=== PATIENT | female | born 1955 | race Caucasian/White ===

== ENCOUNTER 2022-09-11 11:11 | Inpatient (IN) | payer OTHER, SELFPAY ==
--- NOTE | ~2022-09-11 | CT_ITS ---
EXAMINATION: CT HEAD WITHOUT CONTRAST CLINICAL INFORMATION: Suspected fall, trauma. No loss of consciousness. COMPARISON: None TECHNIQUE: Contiguous axial imaging was performed from the skull base to vertex without intravenous administration of contrast. This CT examination was performed using dose optimization techniques as appropriate, variously including the following: *Automated exposure control *Adjustment of mA and/or kV according to patient size (this includes techniques or standardized protocols for targeted exams where dose is matched to indication/reason for exam; i.e. extremities or head) *Use of iterative reconstruction technique DLP: 597 mGy-cm FINDINGS: No evidence of intracranial hemorrhage, extra-axial fluid collection, focal mass effect or midline shift. Patchy hypoattenuation within supratentorial white matter is nonspecific but likely sequela of chronic moderate microangiopathy. The garcia-white matter differentiation is maintained. No evidence of an acute major vascular territory infarction. [id number] parenchymal volume loss with commensurate prominence of ventricles and sulci; no hydrocephalus. No acute findings within the posterior fossa. The cerebellar tonsils are in normal position. No calvarial fracture. The visualized paranasal sinuses and mastoid air cells are well aerated. The orbits, globes and temporomandibular joints are unremarkable. CT/CT head/brain wo IV con IMPRESSION: * No intracranial hemorrhage or other acute intracranial pathology. 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
--- NOTE | ~2022-09-11 | XR_ITS ---
EXAMINATION: XR CHEST CLINICAL INFORMATION: Shortness of breath COMPARISON: None TECHNIQUE: AP portable view of the chest was obtained. FINDINGS: There is mild interstitial prominence seen bilaterally within the lower lobes. No confluent airspace disease is appreciated. Heart normal size. No definite evidence to suggest pulmonary edema. No pneumothorax or pleural effusion. Old healed left clavicle fracture. Calcific tendinitis of the left shoulder. XR/XR chest 1V IMPRESSION: Mild interstitial disease within the lower lobes which may be infectious or reactive airways disease.
[2022-09-11 11:17] VITALS: BP 168/72; PULSE 98; O2SAT 99
--- NOTE | 2022-09-11 11:30 | ECG_ITS ---
Test Reason : MED CLEARANCE Blood Pressure : / mmHG Vent. Rate : 053 BPM Atrial Rate : 053 BPM P-R Int : 150 ms QRS Dur : 082 ms QT Int : 420 ms P-R-T Axes : 049 077 070 degrees QTc Int : 394 ms Sinus bradycardia Otherwise normal ECG No previous ECGs available Referred By: Generic ED Physician Electronically Signed By:Myke Queen
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
[2022-09-11 12:04] LABS: COVID-19 Test Negative (Negative); IDNOW Serial# BCCEAD1C
[2022-09-11 12:10] VITALS: BP 154/70; PULSE 66; RESP 16; TEMP 36.7; O2SAT 92; BMI 23.0
[2022-09-11 12:10] LABS: Basophils Absolute Auto 0.1 X10*3/uL (0.0-0.2); Basophils Percent Auto 0.6 % (0-2); Eosinophils Absolute Auto 0.1 X10*3/uL (0.0-0.4); Eosinophils Percent Auto 1.1 % (0-4); Hematocrit 44.7 % (37.0-47.0); Hemoglobin 14.5 g/dl (12.0-16.0); Imm Gran Abs Auto 0.03 X10*3/uL (0.00-0.03); Imm Gran Pct Auto 0.3 % (0.0-0.4); Lymphocytes Percent Auto 10.1 % (20-40); MANUAL DIFF FLAG SCAN; Mean Corpuscular HGB Conc 32.4 g/dl (31.0-35.0); Mean Corpuscular Hemoglobin 28.3 pg (27.0-33.0); Mean Corpuscular Volume 87.3 fL (80.0-98.0); Monocytes Absolute Auto 0.9 X10*3/uL (0.1-1.2); Monocytes Percent Auto 8.9 % (2-11); Neutrophils Absolute Auto 7.8 x10*3/uL (2.0-8.3); PLT CLUMP 1; Red Blood Count 5.12 X10*6/uL (4.20-5.50); Red Cell Distribution Width 13.9 % (11.0-16.0); SCAN SMEAR FLAG 1
[2022-09-11 12:24] LABS: Anion Gap 15 (12-20); Blood Urea Nitrogen 9 mg/dL (9-16); Carbon Dioxide 26 mmol/L (22-29); Chloride 103 mmol/L (96-108); Creatinine Clr Calc Pharmacy 60.1; Estimated Glomerular Filt Rate > 60; Glucose Random 99 mg/dL (60-115); Potassium 4.3 mmol/L (3.3-5.1); Sodium 140 mmol/L (135-145)
[2022-09-11 12:28] LABS: White Blood Count 9.8 X10*3/uL (4.8-10.8)
[2022-09-11 12:29] LABS: SLIDE REVIEW VERIFIED
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
[2022-09-11 13:36] LABS: Appearance Urine Clear; Color Urine Yellow; Glucose Urine UA Negative (Negative); Leukocyte Esterase Urine Negative (Negative); Nitrite Urine Negative (Negative); PH 6.5 (5.0-9.0); Urine Blood Negative (Negative); Urine Ketones Negative (Negative); Urine Protein Negative (Neg-Trace)
[2022-09-11 13:45] LABS: Amphetamine Screen Urine Not Detected (Not Detect); Barbiturates, Urine Not Detected (Not Detect); Benzodiazepines Screen Urine Not Detected (Not Detect); Cannabinoid Screen Urine Not Detected (Not Detect); Cocaine Screen Urine Not Detected (Not Detect); Fentanyl, urine Not Detected (Not Detect); Opiate Screen Urine Not Detected (Not Detect); Phencyclidine Screen Urine Not Detected (Not Detect)
[2022-09-11 20:51] VITALS: BP 139/62; PULSE 53; RESP 16; TEMP 36.8; O2SAT 93
[2022-09-11] MEDS: busPIRone HCl 10 MG TABLET PO (22:55)
[2022-09-11] MEDS: Gabapentin 100 MG CAPSULE PO (22:55)
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
[2022-09-12 10:00] VITALS: BP 125/82; PULSE 105; RESP 16; TEMP 37.2; O2SAT 93
[2022-09-12] MEDS: Gabapentin 100 MG CAPSULE PO ×3 (10:04→21:24)
[2022-09-12] MEDS: Escitalopram Oxalate 10 MG TABLET PO (10:04)
[2022-09-12] MEDS: Omeprazole 20 MG CAPSULE.DR PO (10:04)
[2022-09-12] MEDS: busPIRone HCl 10 MG TABLET PO ×2 (10:04→21:24)
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
[2022-09-12 18:00] VITALS: BP 122/57; PULSE 69; RESP 18; TEMP 36.6; O2SAT 97
[2022-09-12] MEDS: traZODone HCL 100 MG TABLET PO (21:24)
[2022-09-12] MEDS: Atorvastatin Calcium 10 MG TABLET PO (21:24)
[2022-09-13 09:20] VITALS: BP 136/64; PULSE 72; RESP 16; TEMP 36.7; O2SAT 93
[2022-09-13] MEDS: busPIRone HCl 10 MG TABLET PO (09:26)
[2022-09-13] MEDS: Escitalopram Oxalate 10 MG TABLET PO (09:26)
[2022-09-13] MEDS: Gabapentin 100 MG CAPSULE PO ×2 (09:26→15:41)
[2022-09-13] MEDS: Omeprazole 20 MG CAPSULE.DR PO (09:28)
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
[2022-09-13 18:26] VITALS: BP 124/60; PULSE 82; RESP 16; TEMP 36.4; O2SAT 91
[2022-09-14 08:45] VITALS: BP 144/65; PULSE 83; RESP 18; TEMP 36.4; O2SAT 91
[2022-09-14] MEDS: busPIRone HCl 10 MG TABLET PO ×2 (09:57→20:59)
[2022-09-14] MEDS: Omeprazole 20 MG CAPSULE.DR PO (09:57)
[2022-09-14] MEDS: Gabapentin 100 MG CAPSULE PO ×3 (09:58→20:58)
[2022-09-14] MEDS: Escitalopram Oxalate 10 MG TABLET PO (09:58)
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
[2022-09-14] MEDS: Divalproex Sodium 250 MG TABLET.DR 125 MG PO ×2 (17:31→21:00)
[2022-09-14 18:00] VITALS: BP 131/69; PULSE 64; RESP 16; TEMP 36.1; O2SAT 90
[2022-09-14] MEDS: traZODone HCL 100 MG TABLET PO (20:58)
[2022-09-14] MEDS: Atorvastatin Calcium 10 MG TABLET PO (20:59)
[2022-09-15 08:30] VITALS: BP 132/88; PULSE 100; RESP 16; TEMP 36.7; O2SAT 93
[2022-09-15] MEDS: Omeprazole 20 MG CAPSULE.DR PO (08:34)
[2022-09-15] MEDS: busPIRone HCl 10 MG TABLET PO ×2 (08:34→20:45)
[2022-09-15] MEDS: Gabapentin 100 MG CAPSULE PO ×2 (08:35→16:30)
[2022-09-15] MEDS: Escitalopram Oxalate 10 MG TABLET PO (08:35)
[2022-09-15] MEDS: Divalproex Sodium Sprinkles 125 MG CAP.DR.SPR PO ×2 (09:22→16:30)
[2022-09-15 14:29] LABS: COVID-19 Test Negative (Negative); IDNOW Serial# 16C4AD1C
--- NOTE | 2022-09-15 16:29 | P.PNPSI_ITS ---
Subjective Subjective Date of Service: 09/15/22 Reason For Visit: Behavioral disturbance Subjective Notes: Conditional Voluntary Interim History: The nursing staff reported the patient had been compliant with medications but he has very ports attention span and she was disoriented and confused. On interview the patient cannot remember how come she in the here and why she is here. I explained about her diagnosis and she was redirected in the treatment goals. But she has poor insight into her condition Mental Status Exam Mental Status Exam Patient Appearance: Well Grooomed Patient Orientation: Person and Situation Level of Consciousness: Awake and Appropriate Patient Behavior: Guarded, Passive and Timid Mood Description: Withdrawn Affect Description: Calm Patient Cognition Impaired: Yes Ability to Follow Directions: Good Speech Pattern: Clear Hallucinations: None Delusions: Not Present Thought Process: Distracted and Slowed Thinking Thought Content: positive for [place] and positive for Loose Associations Judgement: Fair Diagnostics Vital Signs (24Hr): Vital Signs - 24 hr 09/14/22 18:00 09/15/22 08:30 Temperature 97 F 98.0 F Pulse Rate 64 100 Respiratory Rate 16 16 Blood Pressure 131/69 132/88 Pulse Oximetry 90 L 93 Oxygen Delivery Method Room Air Room Air BMI result Body Mass Index 23.0 Labs 09/11/22 12:01 09/11/22 12:01 Labs: Laboratory Results - last 48 hr 09/15/22 14:07 COVID-19 ([facility]) Negative COVID-19 Clin Com See Note Medications Medications Current Medications Acetaminophen (Acetaminophen 325 Mg Tablet) 650 mg PO Q6H PRN PRN Reason: Headache/Pain Mild Scale (1-3) Al Hydroxide/Mg Hydroxide (Magnesium Hydrox/Alum Hydrox 30 Ml Oral.Susp) 30 ml PO Q6H PRN PRN Reason: Heartburn/Nausea Albuterol Sulfate (Albuterol Sulfate 90 Mcg 8 Gm Inhaler) 1 puff INHALE Q4H PRN PRN Reason: Dyspnea Atorvastatin Calcium (Atorvastatin Calcium 10 Mg Tablet) 10 mg PO BEDTIME [facility] Last Admin: 09/14/22 20:59 Dose: 10 mg Buspirone HCl (Buspirone Hcl 10 Mg Tablet) 10 mg PO BID [facility] Last Admin: 09/15/22 08:34 Dose: 10 mg Divalproex Sodium (Divalproex Sodium Sprinkles 125 Mg ) 125 mg PO TID [facility] Last Admin: 09/15/22 09:22 Dose: 125 mg Escitalopram Oxalate (Escitalopram Oxalate 10 Mg Tablet) 10 mg PO DAILY [facility] Last Admin: 09/15/22 08:35 Dose: 10 mg Gabapentin (Gabapentin 100 Mg Capsule) 100 mg PO TID [facility] Last Admin: 09/15/22 08:35 Dose: 100 mg Magnesium Hydroxide (Milk Of Magnesia 30 Ml Oral.Susp) 30 ml PO DAILY PRN PRN Reason: Constipation Non-Formulary Medication (Trelegy Ellipta) 100 mcg INHALE DAILY [facility] Omeprazole (Omeprazole 20 Mg Capsule.Dr) 20 mg PO DAILY [facility] Last Admin: 09/15/22 08:34 Dose: 20 mg Trazodone HCl (Trazodone Hcl 100 Mg Tablet) 100 mg PO BEDTIME [facility] Last Admin: 09/14/22 20:58 Dose: 100 mg Trazodone HCl (Trazodone Hcl 50 Mg Tablet) 50 mg PO BEDTIME MRX1 PRN PRN Reason: Insomnia Allergies Allergies Allergy/AdvReac Type Severity Reaction Status Date / Time No Known Allergies Allergy Verified 09/11/22 11:21 Assessment & Plan Assessment & Plan (1) Dementia: Status: Acute Code(s): F03.90 - Unspecified dementia, unspecified severity, without behavioral disturbance, psychotic disturbance, mood disturbance, and anxiety Plan Maintain current medications as has been off those for a number of months i.e. Lipitor 10 mg, Lexapro 10 mg, trazodone 100 mg, buspirone 10 mg twice daily, gabapentin 100 mg twice daily, omeprazole 20 mg and albuterol. can continue to review this while in the hospital plus or minus consider an antipsychotic if there is paranoia or agitation. Completed Section 12 as patient clearly did not have an understanding around conditions for voluntary admission. Plan: 1. Assessment by OT, SW. 2. Gather collateral information. 3. Start Depakote 125 mg po tid to target mood lability. 4. Invoke HCP. Reason for contiued inpatient stay Substantial Risk for: inability to function, rapid decompensation and med/psych decompensation Time Spent With Patient Time: Total time managing care of this patient today __20__ minutes.
[2022-09-15] MEDS: Atorvastatin Calcium 10 MG TABLET PO (20:45)
[2022-09-15] MEDS: traZODone HCL 100 MG TABLET PO (20:45)
[2022-09-16 08:00] VITALS: BP 132/65; PULSE 88; RESP 16; TEMP 36.4; O2SAT 92
[2022-09-16] MEDS: Omeprazole 20 MG CAPSULE.DR PO (08:07)
[2022-09-16] MEDS: Gabapentin 100 MG CAPSULE PO ×3 (08:08→20:43)
[2022-09-16] MEDS: Escitalopram Oxalate 10 MG TABLET PO (08:08)
[2022-09-16] MEDS: Divalproex Sodium Sprinkles 125 MG CAP.DR.SPR PO ×3 (08:08→20:42)
[2022-09-16] MEDS: busPIRone HCl 10 MG TABLET PO ×2 (08:08→20:42)
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
[2022-09-16 18:00] VITALS: BP 93/50; PULSE 60; RESP 16; TEMP 36.3; O2SAT 93
[2022-09-16] MEDS: Atorvastatin Calcium 10 MG TABLET PO (20:42)
[2022-09-16] MEDS: risperiDONE 0.5 MG TABLET PO (20:43)
[2022-09-16] MEDS: traZODone HCL 100 MG TABLET PO (20:43)
[2022-09-17 06:00] VITALS: BP 120/78; PULSE 66; RESP 16; TEMP 36.7; O2SAT 93
[2022-09-17 07:00] VITALS: BMI 21.7
[2022-09-17] MEDS: risperiDONE 0.5 MG TABLET PO ×2 (09:42→19:51)
[2022-09-17] MEDS: Divalproex Sodium Sprinkles 125 MG CAP.DR.SPR 250 MG PO ×3 (09:42→19:50)
[2022-09-17] MEDS: Omeprazole 20 MG CAPSULE.DR PO (09:42)
[2022-09-17] MEDS: Gabapentin 100 MG CAPSULE PO ×3 (09:43→19:51)
[2022-09-17] MEDS: Escitalopram Oxalate 10 MG TABLET PO (09:43)
[2022-09-17] MEDS: busPIRone HCl 10 MG TABLET PO ×2 (09:43→19:50)
--- NOTE | 2022-09-17 11:40 | P.PNPSI_ITS ---
Subjective Subjective Date of Service: 09/17/22 Reason For Visit: Behavioral disturbance Subjective Notes: Section 7, Section 8 and Section 12B Interim History: The nursing staff reported the patient slept well last night, she has being wandering around very confused. She had taking her medications last night. On interview the patient is confused but redirectable Mental Status Exam Mental Status Exam Patient Appearance: Well Grooomed Patient Orientation: Person and Situation Level of Consciousness: Awake and Appropriate Patient Behavior: Guarded and Passive Mood Description: Suspicious, Labile and Nervous Affect Description: Labile Patient Cognition Impaired: Yes Ability to Follow Directions: Good Speech Pattern: Clear Hallucinations: None Delusions: Not Present Thought Process: Illogical and Distracted Thought Content: positive for Disoriented and positive for [place] Judgement: Poor Diagnostics Vital Signs (24Hr): Vital Signs - 24 hr 09/16/22 18:00 09/17/22 06:00 Temperature 97.3 F 98.0 F Pulse Rate 60 66 Respiratory Rate 16 16 Blood Pressure 93/50 L 120/78 Pulse Oximetry 93 93 Oxygen Delivery Method Room Air Room Air BMI result Body Mass Index 21.7 Labs 09/11/22 12:01 09/11/22 12:01 Labs: Laboratory Results - last 48 hr 09/15/22 14:07 COVID-19 ([facility]) Negative COVID-19 Clin Com See Note Medications Medications Current Medications Acetaminophen (Acetaminophen 325 Mg Tablet) 650 mg PO Q6H PRN PRN Reason: Headache/Pain Mild Scale (1-3) Al Hydroxide/Mg Hydroxide (Magnesium Hydrox/Alum Hydrox 30 Ml Oral.Susp) 30 ml PO Q6H PRN PRN Reason: Heartburn/Nausea Albuterol Sulfate (Albuterol Sulfate 90 Mcg 8 Gm Inhaler) 1 puff INHALE Q4H PRN PRN Reason: Dyspnea Atorvastatin Calcium (Atorvastatin Calcium 10 Mg Tablet) 10 mg PO BEDTIME [facility] Last Admin: 09/16/22 20:42 Dose: 10 mg Buspirone HCl (Buspirone Hcl 10 Mg Tablet) 10 mg PO BID [facility] Last Admin: 09/17/22 09:43 Dose: 10 mg Divalproex Sodium (Divalproex Sodium Sprinkles 125 Mg ) 250 mg PO TID [facility] Last Admin: 09/17/22 09:42 Dose: 250 mg Escitalopram Oxalate (Escitalopram Oxalate 10 Mg Tablet) 10 mg PO DAILY [facility] Last Admin: 09/17/22 09:43 Dose: 10 mg Gabapentin (Gabapentin 100 Mg Capsule) 100 mg PO TID [facility] Last Admin: 09/17/22 09:43 Dose: 100 mg Magnesium Hydroxide (Milk Of Magnesia 30 Ml Oral.Susp) 30 ml PO DAILY PRN PRN Reason: Constipation Non-Formulary Medication (Trelegy Ellipta) 100 mcg INHALE DAILY [facility] Omeprazole (Omeprazole 20 Mg Capsule.Dr) 20 mg PO DAILY [facility] Last Admin: 09/17/22 09:42 Dose: 20 mg Risperidone (Risperidone 0.5 Mg Tablet) 0.5 mg PO BID [facility] Last Admin: 09/17/22 09:42 Dose: 0.5 mg Trazodone HCl (Trazodone Hcl 100 Mg Tablet) 100 mg PO BEDTIME [facility] Last Admin: 09/16/22 20:43 Dose: 100 mg Trazodone HCl (Trazodone Hcl 50 Mg Tablet) 50 mg PO BEDTIME MRX1 PRN PRN Reason: Insomnia Allergies Allergies Allergy/AdvReac Type Severity Reaction Status Date / Time No Known Allergies Allergy Verified 09/11/22 11:21 Assessment & Plan Assessment & Plan (1) Dementia: Status: Acute Code(s): F03.90 - Unspecified dementia, unspecified severity, without behavioral disturbance, psychotic disturbance, mood disturbance, and anxiety Plan Maintain current medications as has been off those for a number of months i.e. Lipitor 10 mg, Lexapro 10 mg, trazodone 100 mg, buspirone 10 mg twice daily, gabapentin 100 mg twice daily, omeprazole 20 mg and albuterol. can continue to review this while in the hospital plus or minus consider an antipsychotic if there is paranoia or agitation. Completed Section 12 as patient clearly did not have an understanding around conditions for voluntary admission. Plan: 1. Assessment by OT, SW. 2. Gather collateral information. 3. Start Depakote 125 mg po tid to target mood lability. On admission. 4. Invoke HCP. 5. Start Risperdal 0.5 p.o. b.i.d. to target psychosis. 6. COVID-19 testing today Reason for contiued inpatient stay Substantial Risk for: inability to function, rapid decompensation and med/psych decompensation Time Spent With Patient Time: Total time managing care of this patient today _20___ minutes.
[2022-09-17 12:04] LABS: COVID-19 Test Negative (Negative); IDNOW Serial# 16C4AD1C
[2022-09-17 19:40] VITALS: BP 146/72; PULSE 88; RESP 16; TEMP 36.9; O2SAT 92
[2022-09-17] MEDS: traZODone HCL 100 MG TABLET PO (19:51)
[2022-09-17] MEDS: Atorvastatin Calcium 10 MG TABLET PO (19:51)
[2022-09-18 06:00] VITALS: RESP 15
[2022-09-18] MEDS: Escitalopram Oxalate 10 MG TABLET PO (09:46)
[2022-09-18] MEDS: Gabapentin 100 MG CAPSULE PO ×3 (09:47→20:04)
[2022-09-18] MEDS: busPIRone HCl 10 MG TABLET PO ×2 (09:47→20:03)
[2022-09-18] MEDS: Omeprazole 20 MG CAPSULE.DR PO (09:47)
--- NOTE | 2022-09-18 09:53 | PC.NURSE ---
Pt refusing depakote, risperidone and memantine. Becoming irritable with this nurse at this time. Meds returned to [facility].
--- NOTE | 2022-09-18 13:13 | P.PNPSI_ITS ---
Subjective Subjective Date of Service: 09/18/22 Reason For Visit: Behavioral disturbance Subjective Notes: Conditional Voluntary Interim History: The nursing staff reported the patient has been intrusive tearful at times, she verbalized that she is scared to get COVID 19. She has been medication compliant. Yesterday we increased her Risperdal up to 1 mg p.o. b.i.d. to target psychosis. On interview the patient looks confused, unable to provide a clear explanation how come she in the here. Mental Status Exam Mental Status Exam Patient Appearance: Well Grooomed Patient Orientation: Person and Situation Level of Consciousness: Awake and Appropriate Patient Behavior: Guarded and Passive Mood Description: Withdrawn Affect Description: Constricted Patient Cognition Impaired: Yes Ability to Follow Directions: Good Speech Pattern: Clear Hallucinations: None Delusions: Paranoid Ideation Thought Process: Illogical and Distracted Thought Content: positive for [place] Judgement: Poor Diagnostics Vital Signs (24Hr): Vital Signs - 24 hr 09/17/22 19:40 09/18/22 06:00 Temperature 98.4 F Pulse Rate 88 Respiratory Rate 16 15 Blood Pressure 146/72 H Pulse Oximetry 92 Oxygen Delivery Method Room Air BMI result Body Mass Index 21.7 Labs 09/11/22 12:01 09/11/22 12:01 Labs: Laboratory Results - last 48 hr 09/17/22 11:05 COVID-19 ([facility]) Negative COVID-19 Clin Com See Note Medications Medications Current Medications Acetaminophen (Acetaminophen 325 Mg Tablet) 650 mg PO Q6H PRN PRN Reason: Headache/Pain Mild Scale (1-3) Al Hydroxide/Mg Hydroxide (Magnesium Hydrox/Alum Hydrox 30 Ml Oral.Susp) 30 ml PO Q6H PRN PRN Reason: Heartburn/Nausea Albuterol Sulfate (Albuterol Sulfate 90 Mcg 8 Gm Inhaler) 1 puff INHALE Q4H PRN PRN Reason: Dyspnea Atorvastatin Calcium (Atorvastatin Calcium 10 Mg Tablet) 10 mg PO BEDTIME [facility] Last Admin: 09/17/22 19:51 Dose: 10 mg Buspirone HCl (Buspirone Hcl 10 Mg Tablet) 10 mg PO BID [facility] Last Admin: 09/18/22 09:47 Dose: 10 mg Divalproex Sodium (Divalproex Sodium Sprinkles 125 Mg ) 250 mg PO TID [facility] Last Admin: 09/18/22 09:52 Dose: Not Given Escitalopram Oxalate (Escitalopram Oxalate 10 Mg Tablet) 10 mg PO DAILY [facility] Last Admin: 09/18/22 09:46 Dose: 10 mg Gabapentin (Gabapentin 100 Mg Capsule) 100 mg PO TID [facility] Last Admin: 09/18/22 09:47 Dose: 100 mg Magnesium Hydroxide (Milk Of Magnesia 30 Ml Oral.Susp) 30 ml PO DAILY PRN PRN Reason: Constipation Memantine (Memantine Hcl 5 Mg Tablet) 5 mg PO DAILY [facility] Last Admin: 09/18/22 09:52 Dose: Not Given Non-Formulary Medication (Trelegy Ellipta) 100 mcg INHALE DAILY [facility] Omeprazole (Omeprazole 20 Mg Capsule.Dr) 20 mg PO DAILY [facility] Last Admin: 09/18/22 09:47 Dose: 20 mg Risperidone (Risperidone 1 Mg Tablet) 1 mg PO BID [facility] Last Admin: 09/18/22 09:52 Dose: Not Given Trazodone HCl (Trazodone Hcl 100 Mg Tablet) 100 mg PO BEDTIME [facility] Last Admin: 09/17/22 19:51 Dose: 100 mg Trazodone HCl (Trazodone Hcl 50 Mg Tablet) 50 mg PO BEDTIME MRX1 PRN PRN Reason: Insomnia Allergies Allergies Allergy/AdvReac Type Severity Reaction Status Date / Time No Known Allergies Allergy Verified 09/11/22 11:21 Assessment & Plan Assessment & Plan (1) Dementia: Status: Acute Code(s): F03.90 - Unspecified dementia, unspecified severity, without behavioral disturbance, psychotic disturbance, mood disturbance, and anxiety Plan Maintain current medications as has been off those for a number of months i.e. Lipitor 10 mg, Lexapro 10 mg, trazodone 100 mg, buspirone 10 mg twice daily, gabapentin 100 mg twice daily, omeprazole 20 mg and albuterol. can continue to review this while in the hospital plus or minus consider an antipsychotic if there is paranoia or agitation. Completed Section 12 as patient clearly did not have an understanding around conditions for voluntary admission. Plan: 1. Assessment by OT, SW. 2. Gather collateral information. 3. Start Depakote 125 mg po tid to target mood lability. On admission. 4. Invoke HCP. 5. Start Risperdal 0.5 p.o. b.i.d. to target psychosis. 6. COVID-19 testing today Reason for contiued inpatient stay Substantial Risk for: inability to function, rapid decompensation and med/psych decompensation Time Spent With Patient Time: Total time managing care of this patient today __20__ minutes.
[2022-09-18] MEDS: Divalproex Sodium Sprinkles 125 MG CAP.DR.SPR 250 MG PO ×2 (15:15→20:04)
[2022-09-18 19:20] VITALS: BP 144/68; PULSE 92; RESP 18; TEMP 36.8; O2SAT 98
[2022-09-18] MEDS: risperiDONE 1 MG TABLET PO (20:03)
[2022-09-18] MEDS: Atorvastatin Calcium 10 MG TABLET PO (20:03)
[2022-09-18] MEDS: traZODone HCL 100 MG TABLET PO (20:03)
[2022-09-19 06:00] VITALS: BP 107/63; PULSE 101; RESP 16; TEMP 37.2
[2022-09-19] MEDS: busPIRone HCl 10 MG TABLET PO ×2 (08:43→20:19)
[2022-09-19] MEDS: Escitalopram Oxalate 10 MG TABLET PO (08:43)
[2022-09-19] MEDS: Omeprazole 20 MG CAPSULE.DR PO (08:43)
[2022-09-19] MEDS: risperiDONE 1 MG TABLET PO ×2 (08:43→20:18)
[2022-09-19] MEDS: Memantine HCl 5 MG TABLET PO (08:43)
[2022-09-19] MEDS: Divalproex Sodium Sprinkles 125 MG CAP.DR.SPR 250 MG PO ×2 (08:43→20:18)
[2022-09-19] MEDS: Gabapentin 100 MG CAPSULE PO ×2 (08:43→20:19)
--- NOTE | 2022-09-19 10:33 | P.PNPSI_ITS ---
Subjective Subjective Date of Service: 09/19/22 Reason For Visit: Behavioral disturbance Subjective Notes: Section 12B Interim History: The nursing staff report that patient found sitting ont he floor this am; shei s repeatedly attempting to ambulate and is falling forward and repaetedly at risk for falling; pt placed on 1:1 while awake.; she has been intrusive tearful at times; she is covid positive; She has been medication compliant. Yesterday we increased her Risperdal up to 1 mg p.o. b.i.d. to target psychosis. On interview the patient looks confused, unable to provide a clear explanation how come she in the here. Medication Compliance: Yes Side effects from medications: No Attending Groups: No Review of Systems covid positive Review of Systems: covid positive Review of Systems Review of Systems Yes all other systems are reviewed and are negative and Unobtainable due to mental status Constitutional: Reports no additional constitutional complaints, Denies chills, Denies fever(s) and Denies night sweats Eyes: Reports no additional eye complaints, Denies blurry vision, Denies change in vision, Denies diplopia, Denies eye discharge, Denies loss of vision and Denies eye pain Denies dizziness Cardiovascular: Reports no additional cardiovascular complaints, Denies chest pain, Denies lightheadedness, Denies Loss of Consciousness and Denies dyspnea Respiratory: Reports no additional respiratory complaints and Denies dyspnea Gastrointestinal: Reports no additional gastrointestinal complaints, Denies abdominal pain, Denies melena, Denies hematochezia, Denies change in bowel habits and Denies change in stool character Musculoskeletal: Reports no additional musculoskeletal complaints, Denies numbness and Denies tingling Reports confusion (per her baseline), Denies dizziness, Denies loss of vision, Denies numbness and Denies tingling Psychiatric: Reports no additional psychiatric complaints and Reports confusion (per her baseline) Endocrine: Reports no additional endocrine complaints Hematologic/Lymphatic: Reports no additional hematologic/lymphatic complaints Allergic/Immunologic: Reports no additional allergic/immunologic complaints Mental Status Exam Mental Status Exam Narrative: confuse; anxious; unsteady gait; unable to feed self; needing 2 assist; found on floor between bed and bathroom last night; Appropriately dressed with fair self-care. anxious, irritable and eager for discharge. clear cognitive impairment consistent with already established dementia. Denied depression SI or HI. No overt psychosis currently. Insight and judgment poor Patient Appearance: Well Grooomed Patient Orientation: Person and Situation Level of Consciousness: Awake and Appropriate Patient Behavior: Guarded and Passive Mood Description: Withdrawn Affect Description: Constricted Patient Cognition Impaired: Yes Ability to Follow Directions: Good Speech Pattern: Clear Diagnostics Vital Signs (24Hr): Vital Signs - 24 hr 09/18/22 19:20 09/19/22 06:00 Temperature 98.2 F 99.0 F Pulse Rate 92 101 H Respiratory Rate 18 16 Blood Pressure 144/68 H 107/63 Pulse Oximetry 98 BMI result Body Mass Index 21.7 Labs 09/11/22 12:01 09/11/22 12:01 Labs: Laboratory Results - last 48 hr 09/17/22 11:05 COVID-19 ([facility]) Negative COVID-19 Clin Com See Note Medications Medications Current Medications Acetaminophen (Acetaminophen 325 Mg Tablet) 650 mg PO Q6H PRN PRN Reason: Headache/Pain Mild Scale (1-3) Al Hydroxide/Mg Hydroxide (Magnesium Hydrox/Alum Hydrox 30 Ml Oral.Susp) 30 ml PO Q6H PRN PRN Reason: Heartburn/Nausea Albuterol Sulfate (Albuterol Sulfate 90 Mcg 8 Gm Inhaler) 1 puff INHALE Q4H PRN PRN Reason: Dyspnea Atorvastatin Calcium (Atorvastatin Calcium 10 Mg Tablet) 10 mg PO BEDTIME [facility] Last Admin: 09/18/22 20:03 Dose: 10 mg Buspirone HCl (Buspirone Hcl 10 Mg Tablet) 10 mg PO BID [facility] Last Admin: 09/19/22 08:43 Dose: 10 mg Divalproex Sodium (Divalproex Sodium Sprinkboy 125 Mg ) 250 mg PO TID [facility] Last Admin: 09/19/22 08:43 Dose: 250 mg Escitalopram Oxalate (Escitalopram Oxalate 10 Mg Tablet) 10 mg PO DAILY [facility] Last Admin: 09/19/22 08:43 Dose: 10 mg Gabapentin (Gabapentin 100 Mg Capsule) 100 mg PO TID [facility] Last Admin: 09/19/22 08:43 Dose: 100 mg Magnesium Hydroxide (Milk Of Magnesia 30 Ml Oral.Susp) 30 ml PO DAILY PRN PRN Reason: Constipation Memantine (Memantine Hcl 5 Mg Tablet) 5 mg PO DAILY [facility] Last Admin: 09/19/22 08:43 Dose: 5 mg Non-Formulary Medication (Trelegy Ellipta) 100 mcg INHALE DAILY [facility] Omeprazole (Omeprazole 20 Mg Capsule.Dr) 20 mg PO DAILY [facility] Last Admin: 09/19/22 08:43 Dose: 20 mg Risperidone (Risperidone 1 Mg Tablet) 1 mg PO BID [facility] Last Admin: 09/19/22 08:43 Dose: 1 mg Trazodone HCl (Trazodone Hcl 100 Mg Tablet) 100 mg PO BEDTIME [facility] Last Admin: 09/18/22 20:03 Dose: 100 mg Trazodone HCl (Trazodone Hcl 50 Mg Tablet) 50 mg PO BEDTIME MRX1 PRN PRN Reason: Insomnia Allergies Allergies Allergy/AdvReac Type Severity Reaction Status Date / Time No Known Allergies Allergy Verified 09/11/22 11:21 Assessment & Plan Assessment & Plan (1) Dementia: Status: Acute Code(s): F03.90 - Unspecified dementia, unspecified severity, without behavioral disturbance, psychotic disturbance, mood disturbance, and anxiety Plan Maintain current medications as has been off those for a number of months i.e. Lipitor 10 mg, Lexapro 10 mg, trazodone 100 mg, buspirone 10 mg twice daily, gabapentin 100 mg twice daily, omeprazole 20 mg and albuterol. can continue to review this while in the hospital plus or minus consider an antipsychotic if there is paranoia or agitation. Completed Section 12 as patient clearly did not have an understanding around conditions for voluntary admission. Plan: COVID TEST TODAY 1:[address] SCAN OF HEAD continue treatment plan Reason for contiued inpatient stay Substantial Risk for: harm to self, inability to function, rapid decompensation and med/psych decompensation Time Spent With Patient Time: Total time managing care of this patient today ____ minutes.
[2022-09-19 11:09] LABS: COVID-19 Test Positive (Negative); IDNOW Serial# BCCEAD1C
--- NOTE | 2022-09-19 13:28 | PC.NURSE ---
Patient found on floor next to bed this morning. Event was unwitnessed. Patient unable to provide information re:fall. MD notified. Patient ordered to have CT which was done. Patient observed sleeping. Patient tested positive for covid this morning.
--- NOTE | 2022-09-19 14:51 | PC.NURSE ---
Patient found on floor in sitting position next to bed at 1445. Patient is 1:1 for safety while awake. Patient unable to verbalize cirucumstances d/t mental status. Patient is profoundly confused. Patient was helped up to standing position and offered toileting which was declined. Patient to bed and is observed to be sleeping soundly at this time. Patient was also found on floor at approximately 0800 this morning. Patient was unable to provide account of incident. Provider aware. CT scan ordered. Results pending.
[2022-09-19 20:15] VITALS: BP 116/68; PULSE 88; RESP 18; TEMP 36.7; O2SAT 96
[2022-09-19] MEDS: traZODone HCL 100 MG TABLET PO (20:18)
[2022-09-19] MEDS: Atorvastatin Calcium 10 MG TABLET PO (20:19)
[2022-09-20 06:00] VITALS: BP 136/72; PULSE 87; RESP 18; TEMP 36.9; O2SAT 95
[2022-09-20] MEDS: Divalproex Sodium Sprinkles 125 MG CAP.DR.SPR 250 MG PO ×3 (08:17→21:11)
[2022-09-20] MEDS: risperiDONE 1 MG TABLET PO ×2 (08:17→21:12)
[2022-09-20] MEDS: Omeprazole 20 MG CAPSULE.DR PO (08:17)
[2022-09-20] MEDS: busPIRone HCl 10 MG TABLET PO ×2 (08:17→21:11)
[2022-09-20] MEDS: Escitalopram Oxalate 10 MG TABLET PO (08:17)
[2022-09-20] MEDS: Memantine HCl 5 MG TABLET PO (08:17)
[2022-09-20] MEDS: Gabapentin 100 MG CAPSULE PO ×3 (08:22→21:11)
--- NOTE | 2022-09-20 12:26 | HO.PSYCHPN ---
Subjective Subjective Date of Service: 09/20/22 Reason For Visit: Behavioral disturbance Interim History: seen in bed today; slept well last night per staff; she is covid positive; She has been medication compliant. Medication Compliance: Yes Side effects from medications: No Attending Groups: No Review of Systems Acute medical concerns: No Medical Review of Systems: unchanged Review of Systems Review of Systems Yes all other systems are reviewed and are negative and Unobtainable due to mental status Constitutional: Reports no additional constitutional complaints, Denies chills, Denies fever(s) and Denies night sweats Eyes: Reports no additional eye complaints, Denies blurry vision, Denies change in vision, Denies diplopia, Denies eye discharge, Denies loss of vision and Denies eye pain Denies dizziness Cardiovascular: Reports no additional cardiovascular complaints, Denies chest pain, Denies lightheadedness, Denies Loss of Consciousness and Denies dyspnea Respiratory: Reports no additional respiratory complaints and Denies dyspnea Gastrointestinal: Reports no additional gastrointestinal complaints, Denies abdominal pain, Denies melena, Denies hematochezia, Denies change in bowel habits and Denies change in stool character Musculoskeletal: Reports no additional musculoskeletal complaints, Denies numbness and Denies tingling Reports confusion (per her baseline), Denies dizziness, Denies loss of vision, Denies numbness and Denies tingling Psychiatric: Reports no additional psychiatric complaints and Reports confusion (per her baseline) Endocrine: Reports no additional endocrine complaints Hematologic/Lymphatic: Reports no additional hematologic/lymphatic complaints Allergic/Immunologic: Reports no additional allergic/immunologic complaints Mental Status Exam Mental Status Exam Narrative: confuse; anxious; unsteady gait; unable to feed self; needing 2 assist;low energy today; clear cognitive impairment consistent with already established dementia. Denied depression SI or HI. No overt psychosis currently. Insight and judgment poor Patient Appearance: Well Grooomed Patient Orientation: Person and Situation Level of Consciousness: Awake and Appropriate Patient Behavior: Guarded and Passive Mood Description: Withdrawn Affect Description: Constricted Patient Cognition Impaired: Yes Ability to Follow Directions: Good Speech Pattern: Clear Diagnostics Vital Signs (24Hr): Vital Signs - 24 hr 09/19/22 20:15 09/20/22 06:00 Temperature 98.0 F 98.4 F Pulse Rate 88 87 Respiratory Rate 18 18 Blood Pressure 116/68 136/72 Pulse Oximetry 96 95 BMI result Body Mass Index 21.7 Labs 09/11/22 12:01 09/11/22 12:01 Labs: Laboratory Results - last 48 hr 09/19/22 10:45 COVID-19 ([facility]) Positive A COVID-19 Clin Com See Note Imaging Radiology Impressions: ITS Impressions Head CT 09/19/22 13:14 IMPRESSION: * No intracranial hemorrhage or other acute intracranial pathology. 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 Medications Medications Current Medications Acetaminophen (Acetaminophen 325 Mg Tablet) 650 mg PO Q6H PRN PRN Reason: Headache/Pain Mild Scale (1-3) Al Hydroxide/Mg Hydroxide (Magnesium Hydrox/Alum Hydrox 30 Ml Oral.Susp) 30 ml PO Q6H PRN PRN Reason: Heartburn/Nausea Albuterol Sulfate (Albuterol Sulfate 90 Mcg 8 Gm Inhaler) 1 puff INHALE Q4H PRN PRN Reason: Dyspnea Atorvastatin Calcium (Atorvastatin Calcium 10 Mg Tablet) 10 mg PO BEDTIME [facility] Last Admin: 09/19/22 20:19 Dose: 10 mg Buspirone HCl (Buspirone Hcl 10 Mg Tablet) 10 mg PO BID [facility] Last Admin: 09/20/22 08:17 Dose: 10 mg Divalproex Sodium (Divalproex Sodium Sprinkles 125 Mg Cap.) 250 mg PO TID [facility] Last Admin: 09/20/22 08:17 Dose: 250 mg Escitalopram Oxalate (Escitalopram Oxalate 10 Mg Tablet) 10 mg PO DAILY [facility] Last Admin: 09/20/22 08:17 Dose: 10 mg Gabapentin (Gabapentin 100 Mg Capsule) 100 mg PO TID [facility] Last Admin: 09/20/22 08:22 Dose: 100 mg Magnesium Hydroxide (Milk Of Magnesia 30 Ml Oral.Susp) 30 ml PO DAILY PRN PRN Reason: Constipation Memantine (Memantine Hcl 5 Mg Tablet) 5 mg PO DAILY [facility] Last Admin: 09/20/22 08:17 Dose: 5 mg Non-Formulary Medication (Trelegy Ellipta) 100 mcg INHALE DAILY [facility] Omeprazole (Omeprazole 20 Mg Capsule.) 20 mg PO DAILY [facility] Last Admin: 09/20/22 08:17 Dose: 20 mg Risperidone (Risperidone 1 Mg Tablet) 1 mg PO BID [facility] Last Admin: 09/20/22 08:17 Dose: 1 mg Trazodone HCl (Trazodone Hcl 100 Mg Tablet) 100 mg PO BEDTIME [facility] Last Admin: 09/19/22 20:18 Dose: 100 mg Trazodone HCl (Trazodone Hcl 50 Mg Tablet) 50 mg PO BEDTIME MRX1 PRN PRN Reason: Insomnia Allergies Allergies Allergy/AdvReac Type Severity Reaction Status Date / Time No Known Allergies Allergy Verified 09/11/22 11:21 Assessment & Plan Assessment & Plan (1) Dementia: Status: Acute Code(s): F03.90 - Unspecified dementia, unspecified severity, without behavioral disturbance, psychotic disturbance, mood disturbance, and anxiety Plan Maintain current medications as has been off those for a number of months i.e. Lipitor 10 mg, Lexapro 10 mg, trazodone 100 mg, buspirone 10 mg twice daily, gabapentin 100 mg twice daily, omeprazole 20 mg and albuterol. can continue to review this while in the hospital plus or minus consider an antipsychotic if there is paranoia or agitation. Completed Section 12 as patient clearly did not have an understanding around conditions for voluntary admission. Plan: covid positive-monitor for progressing symptoms encourage food intake and fluids Patient educated on: therapeutic strategies Informed Consent: does not understand Reason for contiued inpatient stay Substantial Risk for: inability to function, rapid decompensation and med/psych decompensation Time Spent With Patient Time: Total time managing care of this patient today ____ minutes.
[2022-09-20 18:00] VITALS: BP 149/70; PULSE 82; RESP 18; TEMP 36.6; O2SAT 93
[2022-09-20] MEDS: Atorvastatin Calcium 10 MG TABLET PO (21:11)
[2022-09-20] MEDS: traZODone HCL 100 MG TABLET PO (21:12)
[2022-09-21 06:00] VITALS: BP 128/68; PULSE 98; RESP 16; TEMP 36.7; O2SAT 95
[2022-09-21] MEDS: Memantine HCl 5 MG TABLET PO (09:20)
[2022-09-21] MEDS: busPIRone HCl 10 MG TABLET PO ×2 (09:21→21:31)
[2022-09-21] MEDS: risperiDONE 1 MG TABLET PO ×2 (09:21→21:31)
[2022-09-21] MEDS: Escitalopram Oxalate 10 MG TABLET PO (09:21)
[2022-09-21] MEDS: Omeprazole 20 MG CAPSULE.DR PO (09:21)
[2022-09-21] MEDS: Gabapentin 100 MG CAPSULE PO ×2 (09:21→21:31)
[2022-09-21] MEDS: Divalproex Sodium Sprinkles 125 MG CAP.DR.SPR 250 MG PO ×2 (09:21→21:31)
--- NOTE | 2022-09-21 14:04 | HO.PSYCHPN ---
Subjective Subjective Date of Service: 09/21/22 Reason For Visit: Behavioral disturbance Subjective Notes: Conditional Voluntary Interim History: The nursing staff reported the patient felt yesterday, she had a CT scan that she was seen by Medicine. So far she has been med compliant but she had been angry on the one-to-one confused and disoriented. The staff has reported that she has being resistant with care, she is not aware that she has COVID-19 and she cannot fulfill the requirements of the COVID 19 protocol. The occupational therapist reported that she scored 3.4 on her Leon test. On interview the patient was confused unable to follow the interview. Mental Status Exam Mental Status Exam Patient Appearance: Well Grooomed and Appropriate Patient Orientation: Person and Situation Level of Consciousness: Awake and Appropriate Patient Behavior: Guarded and Passive Mood Description: Suspicious and Withdrawn Affect Description: Withdrawn and Hostile Patient Cognition Impaired: Yes Ability to Follow Directions: Fair Speech Pattern: Clear Hallucinations: None Delusions: Paranoid Ideation and Ideas of Reference Thought Content: positive for [place] Judgement: Poor Diagnostics Vital Signs (24Hr): Vital Signs - 24 hr 09/20/22 18:00 09/21/22 06:00 Temperature 98 F 98.0 F Pulse Rate 82 98 Respiratory Rate 18 16 Blood Pressure 149/70 H 128/68 Pulse Oximetry 93 95 Oxygen Delivery Method Room Air BMI result Body Mass Index 21.7 Labs 09/11/22 12:01 09/11/22 12:01 Imaging Radiology Impressions: ITS Impressions Head CT 09/19/22 13:14 IMPRESSION: * No intracranial hemorrhage or other acute intracranial pathology. 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 Medications Medications Current Medications Acetaminophen (Acetaminophen 325 Mg Tablet) 650 mg PO Q6H PRN PRN Reason: Headache/Pain Mild Scale (1-3) Al Hydroxide/Mg Hydroxide (Magnesium Hydrox/Alum Hydrox 30 Ml Oral.Susp) 30 ml PO Q6H PRN PRN Reason: Heartburn/Nausea Albuterol Sulfate (Albuterol Sulfate 90 Mcg 8 Gm Inhaler) 1 puff INHALE Q4H PRN PRN Reason: Dyspnea Atorvastatin Calcium (Atorvastatin Calcium 10 Mg Tablet) 10 mg PO BEDTIME [facility] Last Admin: 09/20/22 21:11 Dose: 10 mg Buspirone HCl (Buspirone Hcl 10 Mg Tablet) 10 mg PO BID [facility] Last Admin: 09/21/22 09:21 Dose: 10 mg Divalproex Sodium (Divalproex Sodium Sprinkles 125 Mg Cap) 250 mg PO TID [facility] Last Admin: 09/21/22 09:21 Dose: 250 mg Escitalopram Oxalate (Escitalopram Oxalate 10 Mg Tablet) 10 mg PO DAILY [facility] Last Admin: 09/21/22 09:21 Dose: 10 mg Gabapentin (Gabapentin 100 Mg Capsule) 100 mg PO TID [facility] Last Admin: 09/21/22 09:21 Dose: 100 mg Magnesium Hydroxide (Milk Of Magnesia 30 Ml Oral.Susp) 30 ml PO DAILY PRN PRN Reason: Constipation Memantine (Memantine Hcl 5 Mg Tablet) 5 mg PO DAILY [facility] Last Admin: 09/21/22 09:20 Dose: 5 mg Non-Formulary Medication (Trelegy Ellipta) 100 mcg INHALE DAILY [facility] Omeprazole (Omeprazole 20 Mg Capsule.) 20 mg PO DAILY [facility] Last Admin: 09/21/22 09:21 Dose: 20 mg Risperidone (Risperidone 1 Mg Tablet) 1 mg PO BID [facility] Last Admin: 09/21/22 09:21 Dose: 1 mg Trazodone HCl (Trazodone Hcl 100 Mg Tablet) 100 mg PO BEDTIME [facility] Last Admin: 09/20/22 21:12 Dose: 100 mg Trazodone HCl (Trazodone Hcl 50 Mg Tablet) 50 mg PO BEDTIME MRX1 PRN PRN Reason: Insomnia Allergies Allergies Allergy/AdvReac Type Severity Reaction Status Date / Time No Known Allergies Allergy Verified 09/11/22 11:21 Assessment & Plan Assessment & Plan (1) Dementia: Status: Acute Code(s): F03.90 - Unspecified dementia, unspecified severity, without behavioral disturbance, psychotic disturbance, mood disturbance, and anxiety Plan Maintain current medications as has been off those for a number of months i.e. Lipitor 10 mg, Lexapro 10 mg, trazodone 100 mg, buspirone 10 mg twice daily, gabapentin 100 mg twice daily, omeprazole 20 mg and albuterol. can continue to review this while in the hospital plus or minus consider an antipsychotic if there is paranoia or agitation. Completed Section 12 as patient clearly did not have an understanding around conditions for voluntary admission. Plan: covid positive-monitor for progressing symptoms encourage food intake and fluids Most likely tomorrow we will have court since the patient wants to leave Reason for contiued inpatient stay Substantial Risk for: inability to function, rapid decompensation and med/psych decompensation Time Spent With Patient Time: Total time managing care of this patient today ____ minutes.
[2022-09-21 18:00] VITALS: BP 134/70; PULSE 79; RESP 18; TEMP 36.2; O2SAT 92
[2022-09-21] MEDS: Atorvastatin Calcium 10 MG TABLET PO (21:31)
[2022-09-21] MEDS: traZODone HCL 100 MG TABLET PO (21:31)
--- NOTE | 2022-09-22 04:44 | PC.NURSE ---
Addendum entered by Conchita Ugarte RN 09/22/22 06:03: SPO2 rechecked w/ O2 at 2 L/min is 95%. Original Note: Patient SPO2 while sleeping dropped to 86-89%, referred to Dr. Jones w/ T.O. to start on O2 per nasal cannula at 2 liters per min. which started at 04:45h. We'll continue to monitor pt.
[2022-09-22 10:30] VITALS: BP 119/65; PULSE 75; RESP 18; TEMP 36.2; O2SAT 94
--- NOTE | 2022-09-22 12:13 | P.PNPSI_ITS ---
Subjective Subjective Date of Service: 09/22/22 Reason For Visit: Behavioral disturbance Subjective Notes: Conditional Voluntary Interim History: The nursing staff reported the patient is on one-to-one, she desaturated today in the morning and she needs to be on 2 L of oxygen. She had been sleeping a lot and apparently she fell over the weekend, her appetite is low, confused at times. Today we had a hearing schedule but due to her change in mental status due to medical conditions, the hearing had been postponed. On interview the patient remains confused at times. Mental Status Exam Mental Status Exam Patient Appearance: Appropriate Patient Orientation: Person and Situation Level of Consciousness: Awake and Appropriate Patient Behavior: Guarded and Suspicious Mood Description: Withdrawn Affect Description: Blunted Patient Cognition Impaired: Yes Ability to Follow Directions: Good Speech Pattern: Clear Hallucinations: None Delusions: Paranoid Ideation Thought Process: Distracted Thought Content: positive for [place] and positive for [place] Oriented Judgement: Poor Diagnostics Vital Signs (24Hr): Vital Signs - 24 hr 09/21/22 18:00 09/22/22 10:30 Temperature 97.1 F 97.2 F Pulse Rate 79 75 Respiratory Rate 18 18 Blood Pressure 134/70 119/65 Pulse Oximetry 92 94 Oxygen Delivery Method Room Air Room Air BMI result Body Mass Index 21.7 Labs 09/11/22 12:01 09/11/22 12:01 Imaging Radiology Impressions: ITS Impressions Head CT 09/19/22 13:14 IMPRESSION: * No intracranial hemorrhage or other acute intracranial pathology. 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 Medications Medications Current Medications Acetaminophen (Acetaminophen 325 Mg Tablet) 650 mg PO Q6H PRN PRN Reason: Headache/Pain Mild Scale (1-3) Al Hydroxide/Mg Hydroxide (Magnesium Hydrox/Alum Hydrox 30 Ml Oral.Susp) 30 ml PO Q6H PRN PRN Reason: Heartburn/Nausea Albuterol Sulfate (Albuterol Sulfate 90 Mcg 8 Gm Inhaler) 1 puff INHALE Q4H PRN PRN Reason: Dyspnea Atorvastatin Calcium (Atorvastatin Calcium 10 Mg Tablet) 10 mg PO BEDTIME [facility] Last Admin: 09/21/22 21:31 Dose: 10 mg Buspirone HCl (Buspirone Hcl 10 Mg Tablet) 10 mg PO BID [facility] Last Admin: 09/22/22 09:55 Dose: Not Given Divalproex Sodium (Divalproex Sodium Sprinkles 125 Mg Cap.) 250 mg PO TID [facility] Last Admin: 09/22/22 09:56 Dose: Not Given Escitalopram Oxalate (Escitalopram Oxalate 10 Mg Tablet) 10 mg PO DAILY [facility] Last Admin: 09/22/22 09:56 Dose: Not Given Gabapentin (Gabapentin 100 Mg Capsule) 100 mg PO TID [facility] Last Admin: 09/22/22 09:56 Dose: Not Given Magnesium Hydroxide (Milk Of Magnesia 30 Ml Oral.Susp) 30 ml PO DAILY PRN PRN Reason: Constipation Memantine (Memantine Hcl 5 Mg Tablet) 5 mg PO DAILY [facility] Last Admin: 09/22/22 09:56 Dose: Not Given Non-Formulary Medication (Trelegy Ellipta) 100 mcg INHALE DAILY [facility] Omeprazole (Omeprazole 20 Mg Capsule.) 20 mg PO DAILY [facility] Last Admin: 09/22/22 09:57 Dose: Not Given Risperidone (Risperidone 1 Mg Tablet) 1 mg PO BID [facility] Last Admin: 09/22/22 09:57 Dose: Not Given Trazodone HCl (Trazodone Hcl 100 Mg Tablet) 100 mg PO BEDTIME [facility] Last Admin: 09/21/22 21:31 Dose: 100 mg Trazodone HCl (Trazodone Hcl 50 Mg Tablet) 50 mg PO BEDTIME MRX1 PRN PRN Reason: Insomnia Allergies Allergies Allergy/AdvReac Type Severity Reaction Status Date / Time No Known Allergies Allergy Verified 09/11/22 11:21 Assessment & Plan Assessment & Plan (1) Dementia: Status: Acute Code(s): F03.90 - Unspecified dementia, unspecified severity, without behavioral disturbance, psychotic disturbance, mood disturbance, and anxiety Plan Maintain current medications as has been off those for a number of months i.e. Lipitor 10 mg, Lexapro 10 mg, trazodone 100 mg, buspirone 10 mg twice daily, gabapentin 100 mg twice daily, omeprazole 20 mg and albuterol. can continue to review this while in the hospital plus or minus consider an antipsychotic if there is paranoia or agitation. Completed Section 12 as patient clearly did not have an understanding around conditions for voluntary admission. Plan: covid positive-monitor for progressing symptoms encourage food intake and fluids Court hearing for 7 and 8 have been postponed for next week. Reason for contiued inpatient stay Substantial Risk for: inability to function, rapid decompensation and med/psych decompensation Time Spent With Patient Time: Total time managing care of this patient today _20___ minutes.
[2022-09-23 07:30] VITALS: BP 134/67; PULSE 82; RESP 16; TEMP 36.6; O2SAT 92
[2022-09-23] MEDS: risperiDONE 1 MG TABLET PO ×2 (10:02→21:09)
[2022-09-23] MEDS: Escitalopram Oxalate 10 MG TABLET PO (10:02)
[2022-09-23] MEDS: Divalproex Sodium Sprinkles 125 MG CAP.DR.SPR 250 MG PO ×3 (10:02→21:09)
[2022-09-23] MEDS: Gabapentin 100 MG CAPSULE PO ×3 (10:02→21:09)
[2022-09-23] MEDS: Memantine HCl 5 MG TABLET PO (10:02)
[2022-09-23] MEDS: busPIRone HCl 10 MG TABLET PO ×2 (10:02→21:10)
[2022-09-23] MEDS: Omeprazole 20 MG CAPSULE.DR PO (10:02)
--- NOTE | 2022-09-23 14:03 | P.PNPSI_ITS ---
Subjective Subjective Date of Service: 09/23/22 Reason For Visit: Behavioral disturbance Subjective Notes: Conditional Voluntary Interim History: The nursing staff reported the patient had been angry and agitated at times, she refused last night her vital signs and medications. She has not needed oxygen and we discontinue. She remains on one-to-one. On interview the patient looks very confused she does not know why she is here and explained her that she had COVID and most likely she will be off precautions in the next days. Confused, irritable but redirectable. Mental Status Exam Mental Status Exam Patient Appearance: Appropriate Patient Orientation: Person and Situation Level of Consciousness: Awake and Appropriate Patient Behavior: Guarded and Passive Mood Description: Withdrawn Patient Cognition Impaired: Yes Ability to Follow Directions: Fair Speech Pattern: Impoverished and Monotone Hallucinations: None Delusions: Paranoid Ideation Thought Process: Distracted and Slowed Thinking Thought Content: positive for [place] and positive for Circumstantial Judgement: Poor Diagnostics Vital Signs (24Hr): Vital Signs - 24 hr 09/23/22 07:30 Temperature 97.8 F Pulse Rate 82 Respiratory Rate 16 Blood Pressure 134/67 Pulse Oximetry 92 Oxygen Delivery Method Room Air BMI result Body Mass Index 21.7 Labs 09/11/22 12:01 09/11/22 12:01 Imaging Radiology Impressions: ITS Impressions Head CT 09/19/22 13:14 IMPRESSION: * No intracranial hemorrhage or other acute intracranial pathology. 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 Medications Medications Current Medications Acetaminophen (Acetaminophen 325 Mg Tablet) 650 mg PO Q6H PRN PRN Reason: Headache/Pain Mild Scale (1-3) Al Hydroxide/Mg Hydroxide (Magnesium Hydrox/Alum Hydrox 30 Ml Oral.Susp) 30 ml PO Q6H PRN PRN Reason: Heartburn/Nausea Albuterol Sulfate (Albuterol Sulfate 90 Mcg 8 Gm Inhaler) 1 puff INHALE Q4H PRN PRN Reason: Dyspnea Atorvastatin Calcium (Atorvastatin Calcium 10 Mg Tablet) 10 mg PO BEDTIME [facility] Last Admin: 09/22/22 21:56 Dose: Not Given Buspirone HCl (Buspirone Hcl 10 Mg Tablet) 10 mg PO BID [facility] Last Admin: 09/23/22 10:02 Dose: 10 mg Divalproex Sodium (Divalproex Sodium Sprinkles 125 Mg Cap.Dr.Spr) 250 mg PO TID [facility] Last Admin: 09/23/22 10:02 Dose: 250 mg Escitalopram Oxalate (Escitalopram Oxalate 10 Mg Tablet) 10 mg PO DAILY [facility] Last Admin: 09/23/22 10:02 Dose: 10 mg Gabapentin (Gabapentin 100 Mg Capsule) 100 mg PO TID [facility] Last Admin: 09/23/22 10:02 Dose: 100 mg Magnesium Hydroxide (Milk Of Magnesia 30 Ml Oral.Susp) 30 ml PO DAILY PRN PRN Reason: Constipation Memantine (Memantine Hcl 5 Mg Tablet) 5 mg PO DAILY [facility] Last Admin: 09/23/22 10:02 Dose: 5 mg Non-Formulary Medication (Trelegy Ellipta) 100 mcg INHALE DAILY [facility] Omeprazole (Omeprazole 20 Mg Capsule.Dr) 20 mg PO DAILY [facility] Last Admin: 09/23/22 10:02 Dose: 20 mg Risperidone (Risperidone 1 Mg Tablet) 1 mg PO BID [facility] Last Admin: 09/23/22 10:02 Dose: 1 mg Trazodone HCl (Trazodone Hcl 100 Mg Tablet) 100 mg PO BEDTIME [facility] Last Admin: 09/22/22 21:57 Dose: Not Given Trazodone HCl (Trazodone Hcl 50 Mg Tablet) 50 mg PO BEDTIME MRX1 PRN PRN Reason: Insomnia Allergies Allergies Allergy/AdvReac Type Severity Reaction Status Date / Time No Known Allergies Allergy Verified 09/11/22 11:21 Assessment & Plan Assessment & Plan (1) Dementia: Status: Acute Code(s): F03.90 - Unspecified dementia, unspecified severity, without behavioral disturbance, psychotic disturbance, mood disturbance, and anxiety Plan Maintain current medications as has been off those for a number of months i.e. Lipitor 10 mg, Lexapro 10 mg, trazodone 100 mg, buspirone 10 mg twice daily, gabapentin 100 mg twice daily, omeprazole 20 mg and albuterol. can continue to review this while in the hospital plus or minus consider an antipsychotic if th ere is paranoia or agitation. Completed Section 12 as patient clearly did not have an understanding around conditions for voluntary admission. Plan: covid positive-monitor for progressing symptoms encourage food intake and fluids Court hearing for 7 and 8 have been postponed for next week. Oxygen therapy discontinued today Reason for contiued inpatient stay Substantial Risk for: inability to function, rapid decompensation and med/psych decompensation Time Spent With Patient Time: Total time managing care of this patient today __20__ minutes.
[2022-09-23 18:00] VITALS: BP 126/63; PULSE 66; RESP 18; TEMP 36.6; O2SAT 94
[2022-09-23] MEDS: traZODone HCL 100 MG TABLET PO (21:09)
[2022-09-23] MEDS: Atorvastatin Calcium 10 MG TABLET PO (21:09)
[2022-09-24] MEDS: risperiDONE 1 MG TABLET PO (10:23)
[2022-09-24] MEDS: Memantine HCl 5 MG TABLET PO (10:23)
[2022-09-24] MEDS: Divalproex Sodium Sprinkles 125 MG CAP.DR.SPR 250 MG PO (10:23)
[2022-09-24] MEDS: Omeprazole 20 MG CAPSULE.DR PO (10:23)
[2022-09-24] MEDS: Escitalopram Oxalate 10 MG TABLET PO (10:24)
[2022-09-24] MEDS: busPIRone HCl 10 MG TABLET PO (10:24)
[2022-09-24] MEDS: Gabapentin 100 MG CAPSULE PO (10:24)
--- NOTE | 2022-09-24 13:15 | HO.PSYCHPN ---
Subjective Subjective Date of Service: 09/24/22 Reason For Visit: Behavioral disturbance Subjective Notes: Conditional Voluntary Interim History: The nursing staff reported the patient is on one-to-one for safety while awake. Last night she was very tearful and slept well last night. On interview the patient remains confused, aware that she is COVID-19 but sometimes she is unable to follow the interview, irritable at times. Confused but redirectable Mental Status Exam Mental Status Exam Patient Appearance: Appropriate Patient Orientation: Person and Situation Level of Consciousness: Awake and Appropriate Patient Behavior: Guarded and Passive Mood Description: Withdrawn Affect Description: Labile Patient Cognition Impaired: Yes Ability to Follow Directions: Good Speech Pattern: Clear Hallucinations: None Delusions: Paranoid Ideation Thought Process: Illogical and Distracted Thought Content: positive for [place] and positive for Circumstantial Judgement: Fair Diagnostics Vital Signs (24Hr): Vital Signs - 24 hr 09/23/22 18:00 Temperature 97.9 F Pulse Rate 66 Respiratory Rate 18 Blood Pressure 126/63 Pulse Oximetry 94 Oxygen Delivery Method Room Air BMI result Body Mass Index 21.7 Labs 09/11/22 12:01 09/11/22 12:01 Imaging Radiology Impressions: ITS Impressions Head CT 09/19/22 13:14 IMPRESSION: * No intracranial hemorrhage or other acute intracranial pathology. 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 Medications Medications Current Medications Acetaminophen (Acetaminophen 325 Mg Tablet) 650 mg PO Q6H PRN PRN Reason: Headache/Pain Mild Scale (1-3) Al Hydroxide/Mg Hydroxide (Magnesium Hydrox/Alum Hydrox 30 Ml Oral.Susp) 30 ml PO Q6H PRN PRN Reason: Heartburn/Nausea Albuterol Sulfate (Albuterol Sulfate 90 Mcg 8 Gm Inhaler) 1 puff INHALE Q4H PRN PRN Reason: Dyspnea Atorvastatin Calcium (Atorvastatin Calcium 10 Mg Tablet) 10 mg PO BEDTIME [facility] Last Admin: 09/23/22 21:09 Dose: 10 mg Buspirone HCl (Buspirone Hcl 10 Mg Tablet) 10 mg PO BID [facility] Last Admin: 09/24/22 10:24 Dose: 10 mg Divalproex Sodium (Divalproex Sodium Sprinkles 125 Mg Bong.) 250 mg PO TID [facility] Last Admin: 09/24/22 10:23 Dose: 250 mg Escitalopram Oxalate (Escitalopram Oxalate 10 Mg Tablet) 10 mg PO DAILY [facility] Last Admin: 09/24/22 10:24 Dose: 10 mg Gabapentin (Gabapentin 100 Mg Capsule) 100 mg PO TID [facility] Last Admin: 09/24/22 10:24 Dose: 100 mg Magnesium Hydroxide (Milk Of Magnesia 30 Ml Oral.Susp) 30 ml PO DAILY PRN PRN Reason: Constipation Memantine (Memantine Hcl 5 Mg Tablet) 5 mg PO DAILY [facility] Last Admin: 09/24/22 10:23 Dose: 5 mg Non-Formulary Medication (Trelegy Ellipta) 100 mcg INHALE DAILY [facility] Omeprazole (Omeprazole 20 Mg Capsule.Dr) 20 mg PO DAILY [facility] Last Admin: 09/24/22 10: Dose: 20 mg Risperidone (Risperidone 1 Mg Tablet) 1 mg PO BID [facility] Last Admin: 09/24/22 10:23 Dose: 1 mg Trazodone HCl (Trazodone Hcl 100 Mg Tablet) 100 mg PO BEDTIME [facility] Last Admin: 09/23/22 21:09 Dose: 100 mg Trazodone HCl (Trazodone Hcl 50 Mg Tablet) 50 mg PO BEDTIME MRX1 PRN PRN Reason: Insomnia Allergies Allergies Allergy/AdvReac Type Severity Reaction Status Date / Time No Known Allergies Allergy Verified 09/11/22 11:21 Assessment & Plan Assessment & Plan (1) Dementia: Status: Acute Code(s): F03.90 - Unspecified dementia, unspecified severity, without behavioral disturbance, psychotic disturbance, mood disturbance, and anxiety Plan Maintain current medications as has been off those for a number of months i.e. Lipitor 10 mg, Lexapro 10 mg, trazodone 100 mg, buspirone 10 mg twice daily, gabapentin 100 mg twice daily, omeprazole 20 mg and albuterol. can continue to review this while in the hospital plus or minus consider an antipsychotic if there is paranoia or agitation. Completed Section 12 as patient clearly did not have an understanding around conditions for voluntary admission. Plan: covid positive-monitor for progressing symptoms encourage food intake and fluids Court hearing for 7 and 8 have been postponed for next week. Oxygen therapy discontinued today Reason for contiued inpatient stay Substantial Risk for: inability to function, rapid decompensation and med/psych decompensation Time Spent With Patient Time: Total time managing care of this patient today _20___ minutes.
[2022-09-24 18:00] VITALS: BP 117/54; PULSE 60; TEMP 37.1; O2SAT 90
[2022-09-25 06:00] VITALS: BP 124/58; PULSE 85; RESP 18; TEMP 36.7; O2SAT 92
[2022-09-25] MEDS: busPIRone HCl 10 MG TABLET PO ×2 (08:49→20:03)
[2022-09-25] MEDS: Omeprazole 20 MG CAPSULE.DR PO (08:49)
[2022-09-25] MEDS: Gabapentin 100 MG CAPSULE PO ×3 (08:49→20:04)
[2022-09-25] MEDS: Divalproex Sodium Sprinkles 125 MG CAP.DR.SPR 250 MG PO ×3 (08:49→20:03)
[2022-09-25] MEDS: Memantine HCl 5 MG TABLET PO (08:49)
[2022-09-25] MEDS: Escitalopram Oxalate 10 MG TABLET PO (08:49)
[2022-09-25] MEDS: risperiDONE 1 MG TABLET PO ×2 (08:49→20:02)
--- NOTE | 2022-09-25 14:56 | HO.PSYCHPN ---
Subjective Subjective Date of Service: 09/25/22 Reason For Visit: Behavioral disturbance Subjective Notes: Section 7 and Section 8 Interim History: The nursing staff reported the patient had been in a good mood, she is off COVID restrictions today. She refused her medications last night she had been confused at times and she remains on one-to-one. The occupational therapist reported that she could not do a [place] because the patient was uncooperative and she scored 3.4 on the Leon test. On interview the patient denies new symptoms confused. Mental Status Exam Mental Status Exam Patient Appearance: Appropriate Patient Orientation: Person and Situation Level of Consciousness: Awake and Appropriate Patient Behavior: Guarded and Passive Mood Description: Withdrawn Affect Description: Constricted Patient Cognition Impaired: Yes Ability to Follow Directions: Fair Speech Pattern: Clear Hallucinations: None Delusions: Not Present Thought Process: Distracted and Slowed Thinking Thought Content: positive for [place] and positive for Circumstantial Judgement: Poor Diagnostics Vital Signs (24Hr): Vital Signs - 24 hr 09/24/22 18:00 09/25/22 06:00 Temperature 98.8 F 98.0 F Pulse Rate 60 85 Respiratory Rate 18 Blood Pressure 117/54 L 124/58 L Pulse Oximetry 90 L 92 Oxygen Delivery Method Room Air Room Air BMI result Body Mass Index 21.7 Labs 09/11/22 12:01 09/11/22 12:01 Imaging Radiology Impressions: ITS Impressions Head CT 09/19/22 13:14 IMPRESSION: * No intracranial hemorrhage or other acute intracranial pathology. 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 Medications Medications Current Medications Acetaminophen (Acetaminophen 325 Mg Tablet) 650 mg PO Q6H PRN PRN Reason: Headache/Pain Mild Scale (1-3) Al Hydroxide/Mg Hydroxide (Magnesium Hydrox/Alum Hydrox 30 Ml Oral.Susp) 30 ml PO Q6H PRN PRN Reason: Heartburn/Nausea Albuterol Sulfate (Albuterol Sulfate 90 Mcg 8 Gm Inhaler) 1 puff INHALE Q4H PRN PRN Reason: Dyspnea Atorvastatin Calcium (Atorvastatin Calcium 10 Mg Tablet) 10 mg PO BEDTIME [facility] Last Admin: 09/24/22 22:15 Dose: Not Given Buspirone HCl (Buspirone Hcl 10 Mg Tablet) 10 mg PO BID [facility] Last Admin: 09/25/22 08:49 Dose: 10 mg Divalproex Sodium (Divalproex Sodium Sprinkles 125 Mg Cap.) 250 mg PO TID [facility] Last Admin: 09/25/22 14:54 Dose: 250 mg Escitalopram Oxalate (Escitalopram Oxalate 10 Mg Tablet) 10 mg PO DAILY [facility] Last Admin: 09/25/22 08:49 Dose: 10 mg Gabapentin (Gabapentin 100 Mg Capsule) 100 mg PO TID [facility] Last Admin: 09/25/22 14:54 Dose: 100 mg Magnesium Hydroxide (Milk Of Magnesia 30 Ml Oral.Susp) 30 ml PO DAILY PRN PRN Reason: Constipation Memantine (Memantine Hcl 5 Mg Tablet) 5 mg PO DAILY [facility] Last Admin: 09/25/22 08:49 Dose: 5 mg Non-Formulary Medication (Trelegy Ellipta) 100 mcg INHALE DAILY [facility] Omeprazole (Omeprazole 20 Mg Capsule.) 20 mg PO DAILY [facility] Last Admin: 09/25/22 08:49 Dose: 20 mg Risperidone (Risperidone 1 Mg Tablet) 1 mg PO BID [facility] Last Admin: 09/25/22 08:49 Dose: 1 mg Trazodone HCl (Trazodone Hcl 100 Mg Tablet) 100 mg PO BEDTIME [facility] Last Admin: 09/24/22 22:16 Dose: Not Given Trazodone HCl (Trazodone Hcl 50 Mg Tablet) 50 mg PO BEDTIME MRX1 PRN PRN Reason: Insomnia Allergies Allergies Allergy/AdvReac Type Severity Reaction Status Date / Time No Known Allergies Allergy Verified 09/11/22 11:21 Assessment & Plan Assessment & Plan (1) Dementia: Status: Acute Code(s): F03.90 - Unspecified dementia, unspecified severity, without behavioral disturbance, psychotic disturbance, mood disturbance, and anxiety Plan Maintain current medications as has been off those for a number of months i.e. Lipitor 10 mg, Lexapro 10 mg, trazodone 100 mg, buspirone 10 mg twice daily, gabapentin 100 mg twice daily, omeprazole 20 mg and albuterol. can continue to review this while in the hospital plus or minus consider an antipsychotic if there is paranoia or agitation. Completed Section 12 as patient clearly did not have an understanding around conditions for voluntary admission. Plan: covid positive-monitor for progressing symptoms encourage food intake and fluids Court hearing for 7 and 8 have been postponed for next week. Oxygen therapy discontinued today COVID-19 precautions discontinued today Continue Risperdal and Depakote as prescribed Reason for contiued inpatient stay Substantial Risk for: inability to function, rapid decompensation and med/psych decompensation Time Spent With Patient Time: Total time managing care of this patient today __20__ minutes.
[2022-09-25 19:25] VITALS: BP 127/74; PULSE 88; RESP 18; TEMP 37.6; O2SAT 94
[2022-09-25] MEDS: traZODone HCL 100 MG TABLET PO (20:02)
[2022-09-25] MEDS: Atorvastatin Calcium 10 MG TABLET PO (20:03)
[2022-09-26 06:00] VITALS: BP 129/62; PULSE 107; RESP 18; TEMP 36.9; O2SAT 90
[2022-09-26] MEDS: Memantine HCl 5 MG TABLET PO (08:59)
[2022-09-26] MEDS: risperiDONE 1 MG TABLET PO ×2 (08:59→20:29)
[2022-09-26] MEDS: Divalproex Sodium Sprinkles 125 MG CAP.DR.SPR 250 MG PO ×2 (08:59→14:52)
[2022-09-26] MEDS: Omeprazole 20 MG CAPSULE.DR PO (08:59)
[2022-09-26] MEDS: busPIRone HCl 10 MG TABLET PO (08:59)
[2022-09-26] MEDS: Escitalopram Oxalate 10 MG TABLET PO (08:59)
[2022-09-26] MEDS: Gabapentin 100 MG CAPSULE PO ×2 (08:59→14:52)
[2022-09-26 09:47] VITALS: BP 122/56; PULSE 91; RESP 16; O2SAT 96
--- NOTE | 2022-09-26 09:47 | PM.IMCN ---
History of Present Illness Data of Consult Service Date: 09/26/22 Primary Care Provider: Unknown Physician HPI Reason for consult: sob 67F PMH COPD, depression, dementia, admitted to inpatient psychiatry, diagnosed with covid 09/19/2022. today was complaining of SOB, reported desaturation to mid 80s on ambulation. patient now denying sob, appears comfortable, currently saturating 95% on room air. Review of Systems Review of Systems: Yes all other systems are reviewed and are negative [facility] Medical History (Updated 09/26/22 @ 09:50 by Damián Carroll MD) COPD (chronic obstructive pulmonary disease) Social History Household Members: Other Housing: Other Unable to assess alcohol history related to: Unknown Patient Tobacco Use Status: Tobacco use Unknown Use of substances other than those prescribed or required for medical reasons: Unknown Currently Displaying Signs/Symptoms of Drug Intoxication Withdrawal: No Do you feel safe in your current relationship?: No Current Relationship Advance Directives: No Advance Directives Information Provided: No Healthcare Proxy: Yes (Sister Justine Syed (lives out of state and is HCP) [phone]) Guardian: No Do you have thoughts of harming others: None Do you have a plan to hurt others: No Plan Recently lost weight without trying: No How much weight loss: Unsure Eating poorly because of decreased appetite: No Nutrition screen score: 2 Nutrition Risks: No Nutritional Risk Patient : No : No Poor oral hygiene: No Meds Allergies Allergy/AdvReac Type Severity Reaction Status Date / Time No Known Allergies Allergy Verified 09/11/22 11:21 Active Medications: Current Medications Acetaminophen (Acetaminophen 325 Mg Tablet) 650 mg PO Q6H PRN PRN Reason: Headache/Pain Mild Scale (1-3) Al Hydroxide/Mg Hydroxide (Magnesium Hydrox/Alum Hydrox 30 Ml Oral.Susp) 30 ml PO Q6H PRN PRN Reason: Heartburn/Nausea Albuterol Sulfate (Albuterol Sulfate 90 Mcg 8 Gm Inhaler) 1 puff INHALE Q4H PRN PRN Reason: Dyspnea Atorvastatin Calcium (Atorvastatin Calcium 10 Mg Tablet) 10 mg PO BEDTIME [facility] Last Admin: 09/25/22 20:03 Dose: 10 mg Buspirone HCl (Buspirone Hcl 10 Mg Tablet) 10 mg PO BID [facility] Last Admin: 09/26/22 08:59 Dose: 10 mg Divalproex Sodium (Divalproex Sodium Sprinkles 125 Mg Cap) 250 mg PO TID [facility] Last Admin: 09/26/22 08:59 Dose: 250 mg Escitalopram Oxalate (Escitalopram Oxalate 10 Mg Tablet) 10 mg PO DAILY [facility] Last Admin: 09/26/22 08:59 Dose: 10 mg Gabapentin (Gabapentin 100 Mg Capsule) 100 mg PO TID [facility] Last Admin: 09/26/22 08:59 Dose: 100 mg Magnesium Hydroxide (Milk Of Magnesia 30 Ml Oral.Susp) 30 ml PO DAILY PRN PRN Reason: Constipation Memantine (Memantine Hcl 5 Mg Tablet) 5 mg PO DAILY [facility] Last Admin: 09/26/22 08:59 Dose: 5 mg Non-Formulary Medication (Trelegy Ellipta) 100 mcg INHALE DAILY [facility] Omeprazole (Omeprazole 20 Mg Capsule.) 20 mg PO DAILY [facility] Last Admin: 09/26/22 08:59 Dose: 20 mg Risperidone (Risperidone 1 Mg Tablet) 1 mg PO BID [facility] Last Admin: 09/26/22 08:59 Dose: 1 mg Trazodone HCl (Trazodone Hcl 100 Mg Tablet) 100 mg PO BEDTIME [facility] Last Admin: 09/25/22 20:02 Dose: 100 mg Trazodone HCl (Trazodone Hcl 50 Mg Tablet) 50 mg PO BEDTIME MRX1 PRN PRN Reason: Insomnia Home Medications Medication Instructions Recorded Confirmed Last Taken Type Trelegy Ellipta 100 mcg inhalation DAILY 09/11/22 09/11/22 Unknown History Ventolin HFA 90 mcg inhalation Q4H PRN Dyspnea 09/11/22 09/11/22 Unknown History atorvastatin 10 mg PO DAILY 09/11/22 09/11/22 Unknown History buspirone 10 mg PO BID 09/11/22 09/11/22 Unknown History escitalopram oxalate 10 mg PO DAILY 09/11/22 09/11/22 Unknown History gabapentin 100 mg PO TID 09/11/22 09/11/22 Unknown History omeprazole 20 mg PO DAILY 09/11/22 09/11/22 Unknown History trazodone 100 mg PO BEDTIME 09/11/22 09/11/22 Unknown History Physical Exam Vital Signs and Narrative: Vital Signs: Last Vital Signs Temp 98.5 F 09/26/22 06:00 Pulse 107 H 09/26/22 06:00 Resp 18 09/26/22 06:00 BP 129/62 09/26/22 06:00 Pulse Ox 90 L 09/26/22 06:00 O2 Del Method 09/26/22 06:00 BMI result Body Mass Index 21.7 alert, comfortable, no accessory muscles used, decreased air movement but no wheezing or crackles Results Labs 09/11/22 12:01 09/11/22 12:01 Assessment and Plan (1) COPD (chronic obstructive pulmonary disease): Status: Acute Plan 67F pmh copd, dementia, depression admitted to inpatient psych, consult for covid, sob, hypoxia transient acute hypoxic, recent covid, in patient with copd now comfortable and 95% room air would continue to monitor off specific therapies check cbc, cmp, crp, cxr Time Spent With Patient Time: Total time managing care of this patient today ____ minutes.
[2022-09-26 10:06] LABS: MANUAL DIFF FLAG NO
[2022-09-26 10:08] LABS: Basophils Percent Auto 0.6 % (0-2); Eosinophils Absolute Auto 0.1 X10*3/uL (0.0-0.4); Eosinophils Percent Auto 1.7 % (0-4); Hematocrit 42.4 % (37.0-47.0); Hemoglobin 13.6 g/dl (12.0-16.0); Imm Gran Abs Auto 0.04 X10*3/uL (0.00-0.03); Imm Gran Pct Auto 0.8 % (0.0-0.4); Lymphocytes Absolute Auto 0.7 X10*3/uL (1.2-4.9); Lymphocytes Percent Auto 13.4 % (20-40); Mean Corpuscular HGB Conc 32.1 g/dl (31.0-35.0); Mean Corpuscular Hemoglobin 28.3 pg (27.0-33.0); Mean Corpuscular Volume 88.1 fL (80.0-98.0); Mean Platelet Volume 11.2 fL (9.4-12.3); Monocytes Absolute Auto 0.4 X10*3/uL (0.1-1.2); Monocytes Percent Auto 8.2 % (2-11); Neutrophils Absolute Auto 3.9 x10*3/uL (2.0-8.3); Neutrophils Percent Auto 75.3 % (45-73); Platelet Count 198 X10*3/uL (160-400); Red Blood Count 4.81 X10*6/uL (4.20-5.50); Red Cell Distribution Width 13.6 % (11.0-16.0); White Blood Count 5.2 X10*3/uL (4.8-10.8)
[2022-09-26 10:24] LABS: Alanine Aminotransferase < 6 U/L (0-31); Albumin Level 3.7 g/dL (3.5-5.0); Alkaline Phosphatase 63 U/L (39-117); Anion Gap 16 (12-20); Aspartate Amino Transferase 10 U/L (5-31); Bilirubin Direct < 0.2 mg/dL (0.0-0.5); Bilirubin Total 0.5 mg/dL (0.0-1.0); Blood Urea Nitrogen 9 mg/dL (9-16); C Reactive Protein < 0.10 mg/dL (< or = 0.50); Calcium 8.6 mg/dL (8.4-10.2); Carbon Dioxide 27 mmol/L (22-29); Chloride 103 mmol/L (96-108); Creatinine Clr Calc Pharmacy 60.1; Estimated Glomerular Filt Rate > 60; Glucose Random 141 mg/dL (60-115); Potassium 3.6 mmol/L (3.3-5.1); Sodium 142 mmol/L (135-145); Total Protein 5.4 g/dL (6.5-8.0)
--- NOTE | 2022-09-26 15:31 | HO.PSYCHPN ---
Subjective Subjective Date of Service: 09/26/22 Reason For Visit: Behavioral disturbance Subjective Notes: Section 7 Interim History: Pt with periods of irritability due to confusion. Pt in bed. When this magazine writer asked who she was doing, pt upset asking this magazine writer not to come back to see her. Per nursing, pt unsteady on feet, on 1 to 1 due to fall risk. No overt behavioral concerns. Medication Compliance: Yes Side effects from medications: No Review of Systems Review of Systems Yes all other systems are reviewed and are negative and Unobtainable due to mental status Constitutional: Reports no additional constitutional complaints, Denies chills, Denies fever(s) and Denies night sweats Eyes: Reports no additional eye complaints, Denies blurry vision, Denies change in vision, Denies diplopia, Denies eye discharge, Denies loss of vision and Denies eye pain Denies dizziness Cardiovascular: Reports no additional cardiovascular complaints, Denies chest pain, Denies lightheadedness, Denies Loss of Consciousness and Denies dyspnea Respiratory: Reports no additional respiratory complaints and Denies dyspnea Gastrointestinal: Reports no additional gastrointestinal complaints, Denies abdominal pain, Denies melena, Denies hematochezia, Denies change in bowel habits and Denies change in stool character Musculoskeletal: Reports no additional musculoskeletal complaints, Denies numbness and Denies tingling Reports confusion (per her baseline), Denies dizziness, Denies loss of vision, Denies numbness and Denies tingling Psychiatric: Reports no additional psychiatric complaints and Reports confusion (per her baseline) Endocrine: Reports no additional endocrine complaints Hematologic/Lymphatic: Reports no additional hematologic/lymphatic complaints Allergic/Immunologic: Reports no additional allergic/immunologic complaints Mental Status Exam Mental Status Exam Narrative: confuse; anxious; unsteady gait; unable to feed self; needing 2 assist;low energy today; clear cognitive impairment consistent with already established dementia. Denied depression SI or HI. No overt psychosis currently. Insight and judgment impaired. Diagnostics Vital Signs (24Hr): Vital Signs - 24 hr 09/26/22 20:59 09/27/22 07:30 Temperature 97.0 F 97.7 F Pulse Rate 88 86 Respiratory Rate 16 16 Blood Pressure 124/69 Pulse Oximetry 95 90 L Oxygen Delivery Method Room Air Room Air BMI result Body Mass Index 21.7 Labs 09/26/22 09:53 09/26/22 09:53 Labs: Laboratory Results - last 48 hr 09/26/22 09/26/22 09:53 09:53 WBC 5.2 RBC 4.81 Hgb 13.6 Hct 42.4 MCV 88.1 MCH 28.3 MCHC 32.1 RDW 13.6 Plt Count 198 MPV 11.2 Immature Gran % (Auto) 0.8 H Neut % (Auto) 75.3 H Lymph % (Auto) 13.4 L [place] % (Auto) 8.2 Eos % (Auto) 1.7 Baso % (Auto) 0.6 Lymph # (Auto) 0.7 L [place] # (Auto) 0.4 Eos # (Auto) 0.1 Baso # (Auto) 0.0 Abs Immat Gran (auto) 0.04 H Absolute Neuts (auto) 3.9 Absolute Nucleated RBC 0.000 Nucleated RBC % (auto) 0.0 Sodium 142 Potassium 3.6 Chloride 103 Carbon Dioxide 27 Anion Gap 16 BUN 9 Creatinine 0.73 Estim Creat Clear Calc 60.1 Estimated GFR > 60 Random Glucose 141 H Calcium 8.6 D Total Bilirubin 0.5 Direct Bilirubin < 0.2 AST 10 ALT < 6 Alkaline Phosphatase 63 C-Reactive Protein < 0.10 Total Protein 5.4 L Albumin 3.7 Imaging Radiology Impressions: ITS Impressions Head CT 09/19/22 13:14 IMPRESSION: * No intracranial hemorrhage or other acute intracranial pathology. 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 Chest X-Ray 09/26/22 11:00 IMPRESSION: Mild interstitial disease within the lower lobes which may be infectious or reactive airways disease. Medications Medications Current Medications Acetaminophen (Acetaminophen 325 Mg Tablet) 650 mg PO Q6H PRN PRN Reason: Headache/Pain Mild Scale (1-3) Al Hydroxide/Mg Hydroxide (Magnesium Hydrox/Alum Hydrox 30 Ml Oral.Susp) 30 ml PO Q6H PRN PRN Reason: Heartburn/Nausea Albuterol Sulfate (Albuterol Sulfate 90 Mcg 8 Gm Inhaler) 1 puff INHALE Q4H PRN PRN Reason: Dyspnea Atorvastatin Calcium (Atorvastatin Calcium 10 Mg Tablet) 10 mg PO BEDTIME [facility] Last Admin: 09/26/22 20:29 Dose: 10 mg Buspirone HCl (Buspirone Hcl 10 Mg Tablet) 10 mg PO BID [facility] Last Admin: 09/27/22 08:21 Dose: 10 mg Divalproex Sodium (Divalproex Sodium Sprinkles 125 Mg Cap.) 250 mg PO TID [facility] Last Admin: 09/27/22 08:21 Dose: 250 mg Escitalopram Oxalate (Escitalopram Oxalate 10 Mg Tablet) 10 mg PO DAILY [facility] Last Admin: 09/27/22 08:21 Dose: 10 mg Gabapentin (Gabapentin 100 Mg Capsule) 100 mg PO TID [facility] Last Admin: 09/27/22 08:21 Dose: 100 mg Magnesium Hydroxide (Milk Of Magnesia 30 Ml Oral.Susp) 30 ml PO DAILY PRN PRN Reason: Constipation Memantine (Memantine Hcl 5 Mg Tablet) 5 mg PO DAILY [facility] Last Admin: 09/27/22 08:21 Dose: 5 mg Non-Formulary Medication (Trelegy Ellipta) 100 mcg INHALE DAILY [facility] Omeprazole (Omeprazole 20 Mg Capsule.) 20 mg PO DAILY [facility] Last Admin: 09/27/22 08:21 Dose: 20 mg Risperidone (Risperidone 1 Mg Tablet) 1 mg PO BID [facility] Last Admin: 09/27/22 08:21 Dose: 1 mg Trazodone HCl (Trazodone Hcl 100 Mg Tablet) 100 mg PO BEDTIME [facility] Last Admin: 09/26/22 20:29 Dose: 100 mg Trazodone HCl (Trazodone Hcl 50 Mg Tablet) 50 mg PO BEDTIME MRX1 PRN PRN Reason: Insomnia Allergies Allergies Allergy/AdvReac Type Severity Reaction Status Date / Time No Known Allergies Allergy Verified 09/11/22 11:21 Assessment & Plan Assessment & Plan (1) COPD (chronic obstructive pulmonary disease): Status: Acute Code(s): J44.9 - Chronic obstructive pulmonary disease, unspecified Plan 67F pmh copd, dementia, depression admitted to inpatient psych, consult for covid, sob, hypoxia transient acute hypoxic, recent covid, in patient with copd now comfortable and 95% room air would continue to monitor off specific therapies check cbc, cmp, crp, cxr 09/26 continue tx. Reason for contiued inpatient stay Substantial Risk for: inability to function Time Spent With Patient Time: Total time managing care of this patient today ____ minutes.
[2022-09-26] MEDS: Atorvastatin Calcium 10 MG TABLET PO (20:29)
[2022-09-26] MEDS: traZODone HCL 100 MG TABLET PO (20:29)
[2022-09-26 20:59] VITALS: PULSE 88; RESP 16; TEMP 36.1; O2SAT 95
[2022-09-27 07:30] VITALS: BP 124/69; PULSE 86; RESP 16; TEMP 36.5; O2SAT 90
[2022-09-27] MEDS: risperiDONE 1 MG TABLET PO (08:21)
[2022-09-27] MEDS: Memantine HCl 5 MG TABLET PO (08:21)
[2022-09-27] MEDS: Gabapentin 100 MG CAPSULE PO ×2 (08:21→16:35)
[2022-09-27] MEDS: Omeprazole 20 MG CAPSULE.DR PO (08:21)
[2022-09-27] MEDS: busPIRone HCl 10 MG TABLET PO (08:21)
[2022-09-27] MEDS: Escitalopram Oxalate 10 MG TABLET PO (08:21)
[2022-09-27] MEDS: Divalproex Sodium Sprinkles 125 MG CAP.DR.SPR 250 MG PO ×2 (08:21→16:35)
--- NOTE | 2022-09-27 15:33 | HO.PSYCHPN ---
Subjective Subjective Date of Service: 09/27/22 Reason For Visit: Behavioral disturbance Subjective Notes: Conditional Voluntary Interim History: Pt in bed. She does not remember seeing this race and sports book writer, pleasant but when staff told this race and sports book writer that she had not eaten much, pt irritable. Unstead on her feet, on one to one. No behavioral concerns. Medication Compliance: Yes Side effects from medications: No Review of Systems Review of Systems Yes all other systems are reviewed and are negative and Unobtainable due to mental status Constitutional: Reports no additional constitutional complaints, Denies chills, Denies fever(s) and Denies night sweats Eyes: Reports no additional eye complaints, Denies blurry vision, Denies change in vision, Denies diplopia, Denies eye discharge, Denies loss of vision and Denies eye pain Denies dizziness Cardiovascular: Reports no additional cardiovascular complaints, Denies chest pain, Denies lightheadedness, Denies Loss of Consciousness and Denies dyspnea Respiratory: Reports no additional respiratory complaints and Denies dyspnea Gastrointestinal: Reports no additional gastrointestinal complaints, Denies abdominal pain, Denies melena, Denies hematochezia, Denies change in bowel habits and Denies change in stool character Musculoskeletal: Reports no additional musculoskeletal complaints, Denies numbness and Denies tingling Reports confusion (per her baseline), Denies dizziness, Denies loss of vision, Denies numbness and Denies tingling Psychiatric: Reports no additional psychiatric complaints and Reports confusion (per her baseline) Endocrine: Reports no additional endocrine complaints Hematologic/Lymphatic: Reports no additional hematologic/lymphatic complaints Allergic/Immunologic: Reports no additional allergic/immunologic complaints Mental Status Exam Mental Status Exam Narrative: confuse; anxious; unsteady gait; unable to feed self; needing 2 assist;low energy today; clear cognitive impairment consistent with already established dementia. Denied depression SI or HI. No overt psychosis currently. Insight and judgment impaired. Diagnostics Vital Signs (24Hr): Vital Signs - 24 hr 09/26/22 20:59 09/27/22 07:30 Temperature 97.0 F 97.7 F Pulse Rate 88 86 Respiratory Rate 16 16 Blood Pressure 124/69 Pulse Oximetry 95 90 L Oxygen Delivery Method Room Air Room Air BMI result Body Mass Index 21.7 Labs 09/26/22 09:53 09/26/22 09:53 Labs: Laboratory Results - last 48 hr 09/26/22 09/26/22 09:53 09:53 WBC 5.2 RBC 4.81 Hgb 13.6 Hct 42.4 MCV 88.1 MCH 28.3 MCHC 32.1 RDW 13.6 Plt Count 198 MPV 11.2 Immature Gran % (Auto) 0.8 H Neut % (Auto) 75.3 H Lymph % (Auto) 13.4 L [place] % (Auto) 8.2 Eos % (Auto) 1.7 Baso % (Auto) 0.6 Lymph # (Auto) 0.7 L [place] # (Auto) 0.4 Eos # (Auto) 0.1 Baso # (Auto) 0.0 Abs Immat Gran (auto) 0.04 H Absolute Neuts (auto) 3.9 Absolute Nucleated RBC 0.000 Nucleated RBC % (auto) 0.0 Sodium 142 Potassium 3.6 Chloride 103 Carbon Dioxide 27 Anion Gap 16 BUN 9 Creatinine 0.73 Estim Creat Clear Calc 60.1 Estimated GFR > 60 Random Glucose 141 H Calcium 8.6 D Total Bilirubin 0.5 Direct Bilirubin < 0.2 AST 10 ALT < 6 Alkaline Phosphatase 63 C-Reactive Protein < 0.10 Total Protein 5.4 L Albumin 3.7 Imaging Radiology Impressions: ITS Impressions Head CT 09/19/22 13:14 IMPRESSION: * No intracranial hemorrhage or other acute intracranial pathology. 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 Chest X-Ray 09/26/22 11:00 IMPRESSION: Mild interstitial disease within the lower lobes which may be infectious or reactive airways disease. Medications Medications Current Medications Acetaminophen (Acetaminophen 325 Mg Tablet) 650 mg PO Q6H PRN PRN Reason: Headache/Pain Mild Scale (1-3) Al Hydroxide/Mg Hydroxide (Magnesium Hydrox/Alum Hydrox 30 Ml Oral.Susp) 30 ml PO Q6H PRN PRN Reason: Heartburn/Nausea Albuterol Sulfate (Albuterol Sulfate 90 Mcg 8 Gm Inhaler) 1 puff INHALE Q4H PRN PRN Reason: Dyspnea Atorvastatin Calcium (Atorvastatin Calcium 10 Mg Tablet) 10 mg PO BEDTIME [facility] Last Admin: 09/26/22 20:29 Dose: 10 mg Buspirone HCl (Buspirone Hcl 10 Mg Tablet) 10 mg PO BID [facility] Last Admin: 09/27/22 08:21 Dose: 10 mg Divalproex Sodium (Divalproex Sodium Sprinkles 125 Mg Cap.) 250 mg PO TID [facility] Last Admin: 09/27/22 08:21 Dose: 250 mg Escitalopram Oxalate (Escitalopram Oxalate 10 Mg Tablet) 10 mg PO DAILY [facility] Last Admin: 09/27/22 08:21 Dose: 10 mg Gabapentin (Gabapentin 100 Mg Capsule) 100 mg PO TID [facility] Last Admin: 09/27/22 08:21 Dose: 100 mg Magnesium Hydroxide (Milk Of Magnesia 30 Ml Oral.Susp) 30 ml PO DAILY PRN PRN Reason: Constipation Memantine (Memantine Hcl 5 Mg Tablet) 5 mg PO DAILY [facility] Last Admin: 09/27/22 08:21 Dose: 5 mg Non-Formulary Medication (Trelegy Ellipta) 100 mcg INHALE DAILY [facility] Omeprazole (Omeprazole 20 Mg Capsule.) 20 mg PO DAILY [facility] Last Admin: 09/27/22 08:21 Dose: 20 mg Risperidone (Risperidone 1 Mg Tablet) 1 mg PO BID [facility] Last Admin: 09/27/22 08:21 Dose: 1 mg Trazodone HCl (Trazodone Hcl 100 Mg Tablet) 100 mg PO BEDTIME [facility] Last Admin: 09/26/22 20:29 Dose: 100 mg Trazodone HCl (Trazodone Hcl 50 Mg Tablet) 50 mg PO BEDTIME MRX1 PRN PRN Reason: Insomnia Allergies Allergies Allergy/AdvReac Type Severity Reaction Status Date / Time No Known Allergies Allergy Verified 09/11/22 11:21 Assessment & Plan Assessment & Plan (1) COPD (chronic obstructive pulmonary disease): Status: Acute Code(s): J44.9 - Chronic obstructive pulmonary disease, unspecified Plan 67F pmh copd, dementia, depression admitted to inpatient psych, consult for covid, sob, hypoxia transient acute hypoxic, recent covid, in patient with copd now comfortable and 95% room air would continue to monitor off specific therapies check cbc, cmp, crp, cxr 09/26 continue tx. 09/27 continue tx. Reason for contiued inpatient stay Substantial Risk for: inability to function Time Spent With Patient Time: Total time managing care of this patient today ____ minutes.
[2022-09-27 20:17] VITALS: BP 109/53; PULSE 62
[2022-09-28 06:00] VITALS: BP 117/59; PULSE 85; RESP 18; TEMP 36.1; O2SAT 93
[2022-09-28] MEDS: Divalproex Sodium Sprinkles 125 MG CAP.DR.SPR 250 MG PO ×3 (08:54→19:54)
[2022-09-28] MEDS: Gabapentin 100 MG CAPSULE PO ×3 (08:54→19:54)
[2022-09-28] MEDS: risperiDONE 1 MG TABLET PO ×2 (08:54→19:53)
[2022-09-28] MEDS: Memantine HCl 5 MG TABLET PO (08:54)
[2022-09-28] MEDS: busPIRone HCl 10 MG TABLET PO ×2 (08:54→19:54)
[2022-09-28] MEDS: Escitalopram Oxalate 10 MG TABLET PO (08:55)
[2022-09-28] MEDS: Omeprazole 20 MG CAPSULE.DR PO (08:55)
--- NOTE | 2022-09-28 10:12 | HO.PSYCHPN ---
Subjective Subjective Date of Service: 09/28/22 Reason For Visit: Behavioral disturbance Subjective Notes: Conditional Voluntary Interim History: Pt in bed resting. Pt was up earlier today. Continues to present with unsteady gait. Pt difficult to angage in conversation as she is somnolent but in NAD. Per nursing, no behavioral concerns, slept through the night. Medication Compliance: Yes Review of Systems Review of Systems Yes all other systems are reviewed and are negative and Unobtainable due to mental status Constitutional: Reports no additional constitutional complaints, Denies chills, Denies fever(s) and Denies night sweats Eyes: Reports no additional eye complaints, Denies blurry vision, Denies change in vision, Denies diplopia, Denies eye discharge, Denies loss of vision and Denies eye pain Denies dizziness Cardiovascular: Reports no additional cardiovascular complaints, Denies chest pain, Denies lightheadedness, Denies Loss of Consciousness and Denies dyspnea Respiratory: Reports no additional respiratory complaints and Denies dyspnea Gastrointestinal: Reports no additional gastrointestinal complaints, Denies abdominal pain, Denies melena, Denies hematochezia, Denies change in bowel habits and Denies change in stool character Musculoskeletal: Reports no additional musculoskeletal complaints, Denies numbness and Denies tingling Reports confusion (per her baseline), Denies dizziness, Denies loss of vision, Denies numbness and Denies tingling Psychiatric: Reports no additional psychiatric complaints and Reports confusion (per her baseline) Endocrine: Reports no additional endocrine complaints Hematologic/Lymphatic: Reports no additional hematologic/lymphatic complaints Allergic/Immunologic: Reports no additional allergic/immunologic complaints Mental Status Exam Mental Status Exam Narrative: confuse; anxious; unsteady gait; unable to feed self; needing 2 assist;low energy today; clear cognitive impairment consistent with already established dementia. Denied depression SI or HI. No overt psychosis currently. Insight and judgment impaired. Diagnostics Vital Signs (24Hr): Vital Signs - 24 hr 09/27/22 20:17 Pulse Rate 62 Blood Pressure 109/53 L BMI result Body Mass Index 21.7 Labs 09/26/22 09:53 09/26/22 09:53 Labs: Laboratory Results - last 48 hr 09/26/22 09:53 Sodium 142 Potassium 3.6 Chloride 103 Carbon Dioxide 27 Anion Gap 16 BUN 9 Creatinine 0.73 Estim Creat Clear Calc 60.1 Estimated GFR > 60 Random Glucose 141 H Calcium 8.6 D Total Bilirubin 0.5 Direct Bilirubin < 0.2 AST 10 ALT < 6 Alkaline Phosphatase 63 C-Reactive Protein < 0.10 Total Protein 5.4 L Albumin 3.7 Imaging Radiology Impressions: ITS Impressions Head CT 09/19/22 13:14 IMPRESSION: * No intracranial hemorrhage or other acute intracranial pathology. 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 Chest X-Ray 09/26/22 11:00 IMPRESSION: Mild interstitial disease within the lower lobes which may be infectious or reactive airways disease. Medications Medications Current Medications Acetaminophen (Acetaminophen 325 Mg Tablet) 650 mg PO Q6H PRN PRN Reason: Headache/Pain Mild Scale (1-3) Al Hydroxide/Mg Hydroxide (Magnesium Hydrox/Alum Hydrox 30 Ml Oral.Susp) 30 ml PO Q6H PRN PRN Reason: Heartburn/Nausea Albuterol Sulfate (Albuterol Sulfate 90 Mcg 8 Gm Inhaler) 1 puff INHALE Q4H PRN PRN Reason: Dyspnea Atorvastatin Calcium (Atorvastatin Calcium 10 Mg Tablet) 10 mg PO BEDTIME [facility] Last Admin: 09/27/22 20:16 Dose: Not Given Buspirone HCl (Buspirone Hcl 10 Mg Tablet) 10 mg PO BID [facility] Last Admin: 09/28/22 08:54 Dose: 10 mg Divalproex Sodium (Divalproex Sodium Sprinkles 125 Mg Cap.Spr) 250 mg PO TID [facility] Last Admin: 09/28/22 08:54 Dose: 250 mg Escitalopram Oxalate (Escitalopram Oxalate 10 Mg Tablet) 10 mg PO DAILY [facility] Last Admin: 09/28/22 08:55 Dose: 10 mg Gabapentin (Gabapentin 100 Mg Capsule) 100 mg PO TID [facility] Last Admin: 09/28/22 08:54 Dose: 100 mg Magnesium Hydroxide (Milk Of Magnesia 30 Ml Oral.Susp) 30 ml PO DAILY PRN PRN Reason: Constipation Memantine (Memantine Hcl 5 Mg Tablet) 5 mg PO DAILY [facility] Last Admin: 09/28/22 08:54 Dose: 5 mg Non-Formulary Medication (Trelegy Ellipta) 100 mcg INHALE DAILY [facility] Omeprazole (Omeprazole 20 Mg Capsule.) 20 mg PO DAILY [facility] Last Admin: 09/28/22 08:55 Dose: 20 mg Risperidone (Risperidone 1 Mg Tablet) 1 mg PO BID [facility] Last Admin: 09/28/22 08:54 Dose: 1 mg Trazodone HCl (Trazodone Hcl 100 Mg Tablet) 100 mg PO BEDTIME [facility] Last Admin: 09/27/22 20:16 Dose: Not Given Trazodone HCl (Trazodone Hcl 50 Mg Tablet) 50 mg PO BEDTIME MRX1 PRN PRN Reason: Insomnia Allergies Allergies Allergy/AdvReac Type Severity Reaction Status Date / Time No Known Allergies Allergy Verified 09/11/22 11:21 Assessment & Plan Assessment & Plan (1) COPD (chronic obstructive pulmonary disease): Status: Acute Code(s): J44.9 - Chronic obstructive pulmonary disease, unspecified Plan 67F pmh copd, dementia, depression admitted to inpatient psych, consult for covid, sob, hypoxia transient acute hypoxic, recent covid, in patient with copd now comfortable and 95% room air would continue to monitor off specific therapies check cbc, cmp, crp, cxr 09/26 continue tx. 09/27 continue tx. 09/28 continue tx. Reason for contiued inpatient stay Substantial Risk for: inability to function Time Spent With Patient Time: Total time managing care of this patient today ____ minutes.
[2022-09-28] MEDS: traZODone HCL 100 MG TABLET PO (19:53)
[2022-09-28] MEDS: Atorvastatin Calcium 10 MG TABLET PO (19:53)
--- NOTE | 2022-09-28 21:04 | PC.NURSE ---
PT refusing VS, reapproached 2x, MD Joseph notified.
[2022-09-29 06:00] VITALS: BP 105/56; PULSE 70; RESP 20; TEMP 37.7; O2SAT 85
[2022-09-29] MEDS: Gabapentin 100 MG CAPSULE PO ×2 (08:15→14:08)
[2022-09-29] MEDS: Escitalopram Oxalate 10 MG TABLET PO (08:15)
[2022-09-29] MEDS: Omeprazole 20 MG CAPSULE.DR PO (08:15)
[2022-09-29] MEDS: Divalproex Sodium Sprinkles 125 MG CAP.DR.SPR 250 MG PO ×2 (08:15→14:08)
[2022-09-29] MEDS: busPIRone HCl 10 MG TABLET PO (08:15)
[2022-09-29] MEDS: Memantine HCl 5 MG TABLET PO (08:15)
[2022-09-29] MEDS: risperiDONE 1 MG TABLET PO (08:15)
--- NOTE | 2022-09-29 10:18 | P.PNPSI_ITS ---
Subjective Subjective Date of Service: 09/29/22 Reason For Visit: Behavioral disturbance Subjective Notes: Section 7 and Section 8 Interim History: The nursing staff reported the patient still sedated with unsteady gait on one-to-one. She was incontinent of urine since she had gotten positive to COVID 19. She was resistant with care, refused to get the O2 and she was saturating in the lower 80's The occupational therapist reported that she had been very labile and belligerent at times. On interview the patient denies new symptoms she looks confused. We will keep Risperdal and Depakote as prescribed. Mental Status Exam Mental Status Exam Patient Appearance: Appropriate Patient Orientation: Person and Situation Level of Consciousness: Awake and Appropriate Patient Behavior: Guarded and Passive Mood Description: Withdrawn Affect Description: Labile Patient Cognition Impaired: Yes Ability to Follow Directions: Fair Speech Pattern: Clear Hallucinations: None Delusions: Not Present Thought Process: Illogical, Distracted and Evasive Thought Content: positive for [place] and positive for Poverty of Content Judgement: Poor Diagnostics Vital Signs (24Hr): Vital Signs - 24 hr 09/29/22 06:00 Temperature 99.9 F Pulse Rate 70 Respiratory Rate 20 Blood Pressure 105/56 L Pulse Oximetry 85 L Oxygen Delivery Method Room Air BMI result Body Mass Index 21.7 Labs 09/26/22 09:53 09/26/22 09:53 Imaging Radiology Impressions: ITS Impressions Head CT 09/19/22 13:14 IMPRESSION: * No intracranial hemorrhage or other acute intracranial pathology. 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 Chest X-Ray 09/26/22 11:00 IMPRESSION: Mild interstitial disease within the lower lobes which may be infectious or reactive airways disease. Medications Medications Current Medications Acetaminophen (Acetaminophen 325 Mg Tablet) 650 mg PO Q6H PRN PRN Reason: Headache/Pain Mild Scale (1-3) Al Hydroxide/Mg Hydroxide (Magnesium Hydrox/Alum Hydrox 30 Ml Oral.Susp) 30 ml PO Q6H PRN PRN Reason: Heartburn/Nausea Albuterol Sulfate (Albuterol Sulfate 90 Mcg 8 Gm Inhaler) 1 puff INHALE Q4H PRN PRN Reason: Dyspnea Atorvastatin Calcium (Atorvastatin Calcium 10 Mg Tablet) 10 mg PO BEDTIME ADRI Last Admin: 09/28/22 19:53 Dose: 10 mg Buspirone HCl (Buspirone Hcl 10 Mg Tablet) 10 mg PO BID [facility] Last Admin: 09/29/22 08:15 Dose: 10 mg Divalproex Sodium (Divalproex Sodium Sprinkles 125 Mg Cap) 250 mg PO TID [facility] Last Admin: 09/29/22 08:15 Dose: 250 mg Escitalopram Oxalate (Escitalopram Oxalate 10 Mg Tablet) 10 mg PO DAILY [facility] Last Admin: 09/29/22 08:15 Dose: 10 mg Gabapentin (Gabapentin 100 Mg Capsule) 100 mg PO TID [facility] Last Admin: 09/29/22 08:15 Dose: 100 mg Magnesium Hydroxide (Milk Of Magnesia 30 Ml Oral.Susp) 30 ml PO DAILY PRN PRN Reason: Constipation Memantine (Memantine Hcl 5 Mg Tablet) 5 mg PO DAILY [facility] Last Admin: 09/29/22 08:15 Dose: 5 mg Non-Formulary Medication (Trelegy Ellipta) 100 mcg INHALE DAILY [facility] Omeprazole (Omeprazole 20 Mg Capsule.) 20 mg PO DAILY [facility] Last Admin: 09/29/22 08:15 Dose: 20 mg Risperidone (Risperidone 1 Mg Tablet) 1 mg PO BID [facility] Last Admin: 09/29/22 08:15 Dose: 1 mg Trazodone HCl (Trazodone Hcl 100 Mg Tablet) 100 mg PO BEDTIME [facility] Last Admin: 09/28/22 19:53 Dose: 100 mg Trazodone HCl (Trazodone Hcl 50 Mg Tablet) 50 mg PO BEDTIME MRX1 PRN PRN Reason: Insomnia Allergies Allergies Allergy/AdvReac Type Severity Reaction Status Date / Time No Known Allergies Allergy Verified 09/11/22 11:21 Assessment & Plan Assessment & Plan (1) COPD (chronic obstructive pulmonary disease): Status: Acute Code(s): J44.9 - Chronic obstructive pulmonary disease, unspecified (2) Depression: Status: Acute Code(s): F32.A - Depression, unspecified (3) Dementia: Status: Acute Code(s): F03.90 - Unspecified dementia, unspecified severity, without behavioral disturbance, psychotic disturbance, mood disturbance, and anxiety Plan 67F pmh copd, dementia, depression admitted to inpatient psych, consult for covid, sob, hypoxia transient acute hypoxic, recent covid, in patient with copd now comfortable and 95% room air would continue to monitor off specific therapies check cbc, cmp, crp, cxr Plan 1. Continue with Depakote and Risperdal as prescribed. 2. SARs COVID-19 test redone today. 3. We will ask for a continuation on her day since she is acutely sick. 3. Start working on discharge planning as soon as she is more medically stable Reason for contiued inpatient stay Substantial Risk for: inability to function, rapid decompensation and med/psych decompensation Time Spent With Patient Time: Total time managing care of this patient today __20__ minutes.
[2022-09-29 11:29] LABS: Influenza A PCR NEGATIVE (Negative); Influenza B PCR NEGATIVE (Negative); Resp Syncy Virus RNA Qual PCR NEGATIVE (Negative); SARS COV2 PCR INHOUSE POSITIVE (Negative)
[2022-09-29] MEDS: Acetaminophen 325 MG TABLET 650 MG PO (14:09)
--- NOTE | 2022-09-29 16:11 | PM.EVENT ---
Event Note Date of Service: 09/29/22 Event Note: Patient with history of unspecified dementia, COPD, and depression admitted to Psychiatry with consult placed to Medicine for management of COVID-19. She was diagnosed with COVID-19 on 09/19, not treated with steroids or antivirals. SHe had been intermittently hypoxic to 85% and was evaluated by hospitalist service on 09/26 noting oximetry of 95% at that time. However on re-evaluation today, patient is maintaining oximetry 86-89% on room air on exam. Per nursing staff, she is refusing to keep on her oxygen and restraints cannot be used on [facility] psych to administer oxygen. I am recommending patient be transferred to the medical floors for further workup into the etiology of her hypoxia and for supplemental oxygen administration. Discussed with Dr. Jones. Time Spent With Patient Time: Total time managing care of this patient today ____ minutes.
--- NOTE | 2022-09-29 16:26 | P.DS_ITS ---
DS: Providers Provider Date of Service: 09/29/22 Date of admission: 09/11/22 21:32 Date of discharge: 09/29/22 Primary care physician: Unknown Physician Consults: 09/29/22 10:58 Consult to Hospitalist Routine Consulting Provider: Hospitalist Reason For Exam: Pt with COVID, desaturating but agitated, refusing DS: Diagnosis Discharge Diagnosis (1) COPD (chronic obstructive pulmonary disease): Status: Acute (2) Depression: Status: Acute (3) Dementia: Status: Acute DS: Medications Discharge Medications Home Medications: Home Medications Medication Instructions Recorded Confirmed Trelegy Ellipta 100 mcg inhalation DAILY 09/11/22 09/11/22 Ventolin HFA 90 mcg inhalation Q4H PRN Dyspnea 09/11/22 09/11/22 atorvastatin 10 mg PO DAILY 09/11/22 09/11/22 buspirone 10 mg PO BID 09/11/22 09/11/22 escitalopram oxalate 10 mg PO DAILY 09/11/22 09/11/22 gabapentin 100 mg PO TID 09/11/22 09/11/22 omeprazole 20 mg PO DAILY 09/11/22 09/11/22 trazodone 100 mg PO BEDTIME 09/11/22 09/11/22 Previous Rx's Medication Instructions Recorded acetaminophen 325 mg tablet 650 mg PO Q6H PRN Headache/Pain 09/29/22 Mild Scale (1-3) #7 tabs divalproex 125 mg capsule,delayed 250 mg PO TID #7 caps 09/29/22 release sprinkle memantine 5 mg tablet 5 mg PO DAILY #7 tabs 09/29/22 risperidone 1 mg tablet 1 mg PO BID #14 tabs 09/29/22 trazodone 50 mg tablet 50 mg PO BEDTIME MRX1 PRN Insomnia 09/29/22 #7 tabs Mental Status Exam Mental Status Exam Patient Appearance: Fatigued and Perspiring Patient Orientation: Person Level of Consciousness: Drowsy, Disoriented and Restless Patient Behavior: Restless Mood Description: Withdrawn Affect Description: Labile Patient Cognition Impaired: Yes Ability to Follow Directions: Fair Speech Pattern: Rambling Hallucinations: None Delusions: Paranoid Ideation Thought Process: Distracted Thought Content: positive for Incoherent Judgement: Poor Data Data Completed and Pending Completed studies during hospitalization [Text1]: 09/26/22 09/26/2209/29/23 09:53 09:53 10:40 WBC 5.2 RBC 4.81 Hgb 13.6 Hct 42.4 MCV 88.1 MCH 28.3 MCHC 32.1 RDW 13.6 Plt Count 198 MPV 11.2 Immature Gran % (Auto) 0.8 H Neut % (Auto) 75.3 H Lymph % (Auto) 13.4 L [place] % (Auto) 8.2 Eos % (Auto) 1.7 Baso % (Auto) 0.6 Lymph # (Auto) 0.7 L [place] # (Auto) 0.4 Eos # (Auto) 0.1 Baso # (Auto) 0.0 Abs Immat Gran (auto) 0.04 H Absolute Neuts (auto) 3.9 Absolute Nucleated RBC 0.000 Nucleated RBC % (auto) 0.0 Sodium 142 Potassium 3.6 Chloride 103 Carbon Dioxide 27 Anion Gap 16 BUN 9 Creatinine 0.73 Estim Creat Clear Calc 60.1 Estimated GFR > 60 Random Glucose 141 H Calcium 8.6 D Total Bilirubin 0.5 Direct Bilirubin < 0.2 AST 10 ALT < 6 Alkaline Phosphatase 63 C-Reactive Protein < 0.10 Total Protein 5.4 L Albumin 3.7 Influenza Type A (PCR) NEGATIVE Influenza Type B (PCR) NEGATIVE RSV RNA Qual (PCR) NEGATIVE SARS-CoV-2 RNA (RT-PCR) POSITIVE A Imaging Diagnostic Imaging Impressions Head CT 09/19/22 13:14 IMPRESSION: * No intracranial hemorrhage or other acute intracranial pathology. 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 Chest X-Ray 09/26/22 11:00 IMPRESSION: Mild interstitial disease within the lower lobes which may be infectious or reactive airways disease. DS: Summary Hospital Course Hospital Course: The patient was initially admitted for aggression towards her mother on the facility, she carries the diagnosis of dementia and mood disorder. While she was in the geriatric psychiatric unit, she contracted COVID-19 but after a few days, she decompensated and needed to be transferred to Med/Surg for medical treatment Time spent discussing smoking cessation with patient: 3 to 10 minutes Status at Discharge Cognitive/behavioral status at discharge: impaited Functional status at discharge: bed bound Overall status at discharge: patient is not back to baseline Time Spent with Patient Time attestation: Total time managing care of this patient today _30___ minutes. Time spent: Less than 30 minutes Discharge Plan Discharge Anticipated Discharge Date/Time: 09/29/22 16:18 Disposition: er [facility] Hospital Referrals: Physician,Unknown J [Primary Care Provider] - 1 Week Discharge Medications: New acetaminophen 325 mg Tablet 650 mg PO Q6H PRN (Reason: Headache/Pain Mild Scale (1-3)) Qty: 7 0RF trazodone 50 mg Tablet 50 mg PO BEDTIME MRX1 PRN (Reason: Insomnia) Qty: 7 0RF divalproex 125 mg Capsule, Delayed Rel Sprinkle 250 mg PO TID Qty: 7 0RF risperidone 1 mg Tablet 1 mg PO BID Qty: 14 0RF memantine 5 mg Tablet 5 mg PO DAILY Qty: 7 0RF Continued gabapentin capsule 100 mg PO TID omeprazole capsule 20 mg PO DAILY atorvastatin tablet 10 mg PO DAILY buspirone tablet 10 mg PO BID escitalopram oxalate tablet 10 mg PO DAILY trazodone tablet 100 mg PO BEDTIME Trelegy Ellipta inhaler 100 mcg inhalation DAILY Ventolin HFA inhaler 90 mcg inhalation Q4H PRN (Reason: Dyspnea) Discharge Orders: Discharge Order (Routine); Ordered 09/29/22 Ordered By: James Jones Forms: Patient Portal Discharge page Care Plan Goals: The patient decompensated and she was transferred to Med/surg Health Concerns: The patient decompensated and she was transferred to Med/surg Plan of Treatment: Continue medical treatment Assessment: Elderly female with dementia and irriability, admitted for increased aggression, treated with Depakote and Risperdal but she contracted COVID-19 in the unit and decompensated, transferred to med surg for treatment
--- NOTE | 2022-09-29 17:24 | PC.NURSE ---
Pt. with worsening Covid sx. Febrile and not accepting antipyretics, and de-satting and not accepting O2. Seen by hospitalist and transferring to medical floor for further management.
--- NOTE | 2022-09-30 08:53 | PC.NURSE ---
LATE ENTRY. Pt.'s sister Justine notified of transfer to medical floor at 1830.
== END 2022-09-29 17:24 | disposition short-term general hospital (02) | DRG 754 ==
LOC: HO.ED 17:25 → HO.PGERI 21:44
PROVIDERS: Clinical Nurse Specialist Psychiatric/Mental Health; Internal Medicine; Physician Assistant Medical; Admitting Provider Psychiatry & Neurology Psychiatry; Emergency Provider Emergency Medicine; Visit Provider Psychiatry & Neurology Psychiatry
DX: F32.A Depression, unspecified (principal); U07.1 COVID-19; F03.90 Unspecified dementia, unspecified severity, without behavioral disturbance, psychotic disturbance, mood disturbance, and anxiety; J44.9 Chronic obstructive pulmonary disease, unspecified; Z79.899 Other long term (current) drug therapy
CPT/HCPCS: 0241U; 36415; 70450; 71045; 80048; 80076; 80307; 81003; 85025; 86140; 87635; 93005; 99285; S9485

== ENCOUNTER 2022-09-29 17:07 | Inpatient (IN) | payer MEDICARE, MEDICAID, SELFPAY ==
--- NOTE | ~2022-09-29 | XR_ITS ---
EXAMINATION: XR chest 1V CLINICAL INFORMATION: Reason for Exam SOB COMPARISON: Prior chest x-ray 09/29/2022. TECHNIQUE: XR chest 1V Tubes and lines: None Lungs and pleura: Redemonstration of mild diffuse increased interstitial lung marking might be chronic or recurrent. No dense focal consolidation lobar pneumonia. Blunting of costophrenic angles probably small subpulmonic pleural effusions. Heart and mediastinum: The mediastinum is within normal limits.. Bones/soft tissue: Old left clavicular fracture. Bilateral degenerative osteoarthritis of AC joints. XR/XR chest 1V IMPRESSION: * Mild diffuse increased interstitial lung marking might be chronic or recurrent interstitial pneumonitis or edema.. * No dense focal consolidation pneumonia. * Blunting of costophrenic angles probably small subpulmonic pleural effusions.
--- NOTE | ~2022-09-29 | CT_ITS ---
EXAMINATION: CT CHEST WITHOUT CONTRAST CLINICAL INFORMATION: Hypoxia COMPARISON: Chest x-ray from earlier the same day TECHNIQUE: Multidetector volumetric CT imaging of the chest was done. Axial MIP volume rendering provided. Sagittal and coronal reformatted images were obtained. This CT examination was performed using dose optimization techniques as appropriate, variously including the following: *Automated exposure control *Adjustment of mA and/or kV according to patient size (this includes techniques or standardized protocols for targeted exams where dose is matched to indication/reason for exam; i.e. extremities or head) *Use of iterative reconstruction technique DLP: 245 mGy-cm FINDINGS: LUNGS: Detailed evaluation of the lung parenchyma is limited due to extensive respiratory motion artifact. There is extensive upper lobe predominant emphysema. There is a somewhat nodular focus in the right middle lobe measuring up to approximately 1.3 cm on image 283/460. There is also a mild, ill-defined predominantly dependent opacity in the right lower lobe. MEDIASTINUM: Visualized thyroid gland is unremarkable. No appreciable mediastinal lymphadenopathy on this noncontrast exam. Cardiac size is within normal limits; no pericardial effusion. Scattered calcifications along the aorta. CORONARY ARTERY CALCIFICATION: Present PLEURA: There is no pleural effusion. No pleural mass or thickening. AXILLA: No lymphadenopathy. UPPER ABDOMEN: Unremarkable. OSSEOUS STRUCTURES: There is a chronic appearing fracture of the left clavicle. Multilevel endplate osteophytes are present in the spine. CT/CT chest wo IV con IMPRESSION: 1. Extensive upper lobe predominant emphysema. Limited detailed assessment of the lung parenchyma due to respiratory motion artifact. 2. Somewhat nodular focus in the right middle lobe measuring up to approximately 1.3 cm. This may represent a focus of inflammation versus a true pulmonary nodule. Follow-up chest CT in 3 months is recommended to assess for resolution. 3. Mild, predominantly dependent opacity in the right lower lobe, which could represent atelectasis or mild developing consolidation. Aspiration would be a consideration in the proper clinical setting.
--- NOTE | ~2022-09-29 | XR_ITS ---
EXAMINATION: XR CHEST CLINICAL INFORMATION: Hypoxia. COMPARISON: Chest radiograph dated 09/26/2022. TECHNIQUE: Frontal view of the chest was obtained. FINDINGS: Chronic interstitial prominence appears unchanged. No new focal airspace consolidation. No pleural effusion or pneumothorax. Stable cardiomediastinal silhouette. Bilateral degenerative changes at the glenohumeral joints appears chronic. XR/XR chest 1V IMPRESSION: No acute cardiopulmonary findings. Stable, chronic interstitial prominence.
--- NOTE | 2022-09-29 18:22 | P.HPHOSP_ITS ---
History of Present Illness Date of Service: 09/29/22 Attending physician on admission: Salina Ambriz Chief Complaint: hypoxia 67-year-old female with history of unspecified dementia, depression, and COPD evaluated earlier today on Geriatric Psychiatry where she had been admitted for hypoxia. She was diagnosed with COVID-19 on 09/19, did not receive treatment with antiviral therapy or steroids. Initially, symptoms have been mild, however several days ago developed hypoxia to 85% but improved to 95% so no intervention was performed. CXR at that time was negative for any acute cardiopulmonary abnormality. Hypoxia was noted to persist on the unit and patient was refusing to wear oxygen and was noted to be intermittently combative and aggressive. She has also been more encephalopathic from baseline, no longer getting out of bed and walking and refusing p.o.. Has only had minimal amounts of fluid over the last few days. When examined today, patient found to be hypoxic between 86-89% on room air at rest. Discussed with attending psychiatrist and pt will be transferred/admitted to hospital service for further workup and management of acute hypoxic respiratory failure. Review of Systems Review of Systems: Yes Unobtainable due to mental status [facility] Medical History (Updated 09/29/22 @ 20:43 by FRANCISCO JAVIER Mosqueda) COPD (chronic obstructive pulmonary disease) Dementia Depression Social History Household Members: Unknown / Unable to assess Housing: Unknown / Unable to assess Unable to assess alcohol history related to: Unknown Patient Tobacco Use Status: Tobacco use Unknown Use of substances other than those prescribed or required for medical reasons: Unknown Currently Displaying Signs/Symptoms of Drug Intoxication Withdrawal: No Advance Directives: No Advance Directives Information Provided: Yes Do you have thoughts of harming others: None Do you have a plan to hurt others: No Plan Recently lost weight without trying: Unsure How much weight loss: Unsure Eating poorly because of decreased appetite: Yes Nutrition screen score: 5 Nutrition Risks: Poor intake 0-25% >4 days Patient : No Meds Allergies Allergy/AdvReac Type Severity Reaction Status Date / Time No Known Allergies Allergy Verified 09/11/22 11:21 Active Medications: Current Medications Heparin Sodium (Porcine) (Heparin Sodium,Porcine 5,000 Unit/Ml Vial) 5,000 unit SUBCUT Q12H ADRI Sodium Chloride (0.9 % Sodium Chloride Flush 3 Ml Syringe) 3 ml IVFLUSH QSHIFT [facility] Home Medications Medication Instructions Recorded Confirmed Last Taken Type albuterol sulfate 90 mcg/actuation 2 puff inhalation Q4H PRN 09/29/22 09/29/22 Unknown History aerosol inhaler Shortness Of Breath atorvastatin 10 mg tablet 1 tab PO DAILY 09/29/22 09/29/22 Unknown History buspirone 10 mg tablet 1 tab PO BID 09/29/22 09/29/22 Unknown History escitalopram oxalate 10 mg tablet 1 tab PO DAILY 09/29/22 09/29/22 Unknown History gabapentin 100 mg capsule 1 cap PO TID 09/29/22 09/29/22 Unknown History omeprazole 20 mg capsule,delayed 1 cap PO DAILY 09/29/22 09/29/22 Unknown History release Physical Exam Vital Signs and Narrative: Constitutional - Awake and Alert, No apparent distress Eyes - PERRLA, EOMI Cardiovascular - S1S2, RRR, No edema Respiratory - Normal lung expansion, Normal respiratory effort, No respiratory distress, diminished bilaterally which crackles noted bilaterally lower lobes Gastrointestinal - NT / ND; +BS; No rebound or guarding Extremities - no calf tenderness bilaterally, no swelling Skin - Warm/Dry Neurological - Alert & disoriented, swatting away pulse oximeter Psychological - Appropriate affect Results Labs 09/29/22 18:47 09/29/22 18:47 Assessment and Plan (1) Acute respiratory failure with hypoxia: Status: Acute Plan 67-year-old female with history of unspecified dementia, depression, and COPD admitted for acute hypoxemic respiratory failure admitted to hospitalist service from Psychiatry for further management of acute hypoxic respiratory failure. # acute hypoxic respiratory failure- following COVID-19 diagnosed 09/19 -continue supplemental O2 to maintain oximetry around 92% -CXR negative for acute cardiopulmonary abnormality but does show chronic interstitial disease -chest CT pending -D-dimer negative -IV methylprednisolone 40 mg b.i.d. -COVID-19 is likely no longer your very L[place], however will continue airborne/contact precautions per hospital protocol as she did test positive for COVID-19 earlier today # respiratory alkalosis-compensating -VBG pH 7.51, pCO2 32, PO2 66, HC03 26 -repeat VBG a.m. # COPD/interstitial lung disease -does not appear to be in acute exacerbation -will treat with IV steroids as above for hypoxia following COVID-19 -DuoNebs q.4h -continue trilogy Ellipta # unspecified dementia with behavioral disturbance and depression -continue Risperdal, Namenda, Lexapro, Depakote, BuSpar per Psychiatry -consider Psychiatry consult once medically cleared DVT prophylaxis-Lovenox Full code Patient requires inpatient stay of at least 2 midnights for management of acute hypoxic respiratory failure following COVID-19 requiring supplemental O2, IV steroids, and close monitoring for pulmonary decompensation Time Spent With Patient Time: Total time managing care of this patient today ____ minutes. Quality Stroke Does the patient have a stroke diagnosis?: No VTE Prior VTE?: No VTE Risk Level:: Medical - moderate - high VTE Device Contraindication: Treatment Not Indicated VTE Drug Contraindication: N/A - Med Ordered
[2022-09-29 18:30] VITALS: BP 107/63; PULSE 75; RESP 20; TEMP 37.1; O2SAT 92
[2022-09-29 18:46] VITALS: BMI 20.5
[2022-09-29] MEDS: 0.9 % Sodium Chloride 1,000 ML 100 ML IVCONT (18:52)
[2022-09-29 18:56] LABS: MANUAL DIFF FLAG NO
[2022-09-29 18:59] LABS: Basophils Absolute Auto 0.1 X10*3/uL (0.0-0.2); Basophils Percent Auto 0.7 % (0-2); Eosinophils Absolute Auto 0.1 X10*3/uL (0.0-0.4); Eosinophils Percent Auto 1.4 % (0-4); Hematocrit 40.3 % (37.0-47.0); Imm Gran Abs Auto 0.06 X10*3/uL (0.00-0.03); Imm Gran Pct Auto 0.8 % (0.0-0.4); Lymphocytes Percent Auto 12.5 % (20-40); Mean Corpuscular HGB Conc 32.3 g/dl (31.0-35.0); Mean Corpuscular Hemoglobin 28.1 pg (27.0-33.0); Mean Platelet Volume 10.8 fL (9.4-12.3); Monocytes Absolute Auto 0.8 X10*3/uL (0.1-1.2); Neutrophils Absolute Auto 5.6 x10*3/uL (2.0-8.3); Neutrophils Percent Auto 73.6 % (45-73); Platelet Count 216 X10*3/uL (160-400); Red Blood Count 4.63 X10*6/uL (4.20-5.50); Red Cell Distribution Width 13.9 % (11.0-16.0); White Blood Count 7.6 X10*3/uL (4.8-10.8)
[2022-09-29 19:11] VITALS: BP 121/84; PULSE 68; RESP 20; TEMP 36.8; O2SAT 94
[2022-09-29 19:12] LABS: Ammonia 44 umol/L (13-55)
[2022-09-29 19:13] LABS: D Dimer High Sensitivity < 150 NG/ML
[2022-09-29 19:13] LABS: Venous Blood Gas Refer to POC result
[2022-09-29 19:16] LABS: Lactic Acid 1.4 mmol/L (0.5-2.0)
[2022-09-29 19:20] LABS: Alanine Aminotransferase 6 U/L (0-31); Albumin Level 3.7 g/dL (3.5-5.0); Alkaline Phosphatase 64 U/L (39-117); Anion Gap 10 (12-20); Aspartate Amino Transferase 11 U/L (5-31); Bilirubin Total 0.7 mg/dL (0.0-1.0); Blood Urea Nitrogen 11 mg/dL (9-16); Calcium 8.6 mg/dL (8.4-10.2); Carbon Dioxide 32 mmol/L (22-29); Chloride 102 mmol/L (96-108); Creatinine Clr Calc Pharmacy 63.9; Estimated Glomerular Filt Rate > 60; Glucose Random 143 mg/dL (60-115); Potassium 3.5 mmol/L (3.3-5.1); Sodium 140 mmol/L (135-145); Total Protein 5.5 g/dL (6.5-8.0)
[2022-09-29 19:43] LABS: VBG HCO3 26 mmol/L (22-26); VBG pCO2 32 mmHg; VBG pH 7.51 (7.32-7.43); VBG pO2 66 mmHg
[2022-09-29] MEDS: Gabapentin 100 MG CAPSULE PO (22:08)
[2022-09-29] MEDS: traZODone HCL 100 MG TABLET PO (22:09)
[2022-09-29] MEDS: busPIRone HCl 10 MG TABLET PO (22:09)
[2022-09-29] MEDS: Divalproex Sodium Sprinkles 125 MG CAP.DR.SPR 250 MG PO (22:09)
[2022-09-29] MEDS: Atorvastatin Calcium 10 MG TABLET PO (22:09)
[2022-09-29] MEDS: risperiDONE 1 MG TABLET PO (22:09)
[2022-09-29] MEDS: 0.9 % Sodium Chloride Flush 3 ML SYRINGE IVFLUSH (22:10)
[2022-09-29] MEDS: methylPREDNISolone Sod Succ 40 MG/ML VIAL IVPUSH (22:19)
[2022-09-29 23:16] VITALS: BP 109/52; PULSE 69; RESP 20; TEMP 36.7; O2SAT 92
[2022-09-30] VITALS (12 sets, daily range): BP systolic 105–156; BP diastolic 51–80; PULSE 51–84; RESP 15–20; TEMP 36.1–36.7; O2SAT 88–98
[2022-09-30] MEDS: 0.9 % Sodium Chloride 1,000 ML 100 ML IVCONT ×3 (04:41→23:36)
[2022-09-30] MEDS: Heparin Sodium,Porcine 5,000 UNIT/ML VIAL 5000 UNIT SUBCUT ×2 (05:58→14:22)
[2022-09-30 07:38] LABS: Venous Blood Gas Refer to POC result
[2022-09-30 07:40] LABS: VBG Base Excess 2.2 mmol/L; VBG HCO3 25 mmol/L (22-26); VBG pCO2 36 mmHg; VBG pH 7.46 (7.32-7.43); VBG pO2 153 mmHg
[2022-09-30] MEDS: Divalproex Sodium Sprinkles 125 MG CAP.DR.SPR 250 MG PO ×3 (09:02→21:14)
[2022-09-30] MEDS: risperiDONE 1 MG TABLET PO ×2 (09:02→21:14)
[2022-09-30] MEDS: busPIRone HCl 10 MG TABLET PO ×2 (09:02→21:14)
[2022-09-30] MEDS: Escitalopram Oxalate 10 MG TABLET PO (09:02)
[2022-09-30] MEDS: methylPREDNISolone Sod Succ 40 MG/ML VIAL IVPUSH (09:02)
[2022-09-30] MEDS: Acetaminophen 325 MG TABLET 650 MG PO (09:02)
[2022-09-30] MEDS: 0.9 % Sodium Chloride Flush 3 ML SYRINGE IVFLUSH ×2 (09:02→15:44)
[2022-09-30] MEDS: Omeprazole 20 MG CAPSULE.DR PO (09:02)
[2022-09-30] MEDS: Memantine HCl 5 MG TABLET PO (09:02)
[2022-09-30] MEDS: Gabapentin 100 MG CAPSULE PO ×3 (09:02→21:14)
--- NOTE | 2022-09-30 09:04 | MHC.CM.PN ---
Addendum entered by Stephanie Kapadia 09/30/22 13:57: RANJIT ANGEL FROM [facility] CALLED WITH REQUEST FOR UPDATE. CONTACT # [phone] Original Note: IMM EXPLAINED VIA VM TO HCP [place] TELLO AT [phone]. WHITE COPY TO BE MAILED AND YELLOW COPY TO CHART. PER CHART REVIEW AND INFORMATION PROVIDED BY [facility] AT [facility], PT RESIDES AT [facility] AND HAS HAD SIGNIFICANT BEHAVIORS. + HCP +[facility] OVALLES WILL FAX. UNSURE OF COVID VAX. PCP DR. SOTO THROUGH [facility] THROUGH [facility]. CM WILL CONTINUE TO FOLLOW WHILE ON MEDICAL FLOOR.
--- NOTE | 2022-09-30 16:52 | HO.PM.IMPN ---
Subjective Subjective Date of Service: 09/30/22 Interval History: Remains confused agitated; respiratory status stable Review of Systems Unable to obtain Physical Exam Vital Signs: Vital Signs: Last Vital Signs Temp 97.2 F 09/30/22 11:08 Pulse 84 09/30/22 12:42 Resp 17 09/30/22 12:42 BP 105/51 L 09/30/22 11:08 Pulse Ox 92 09/30/22 11:08 O2 Del Method 09/30/22 11:08 O2 Flow Rate 1.5 09/30/22 11:08 BMI result Body Mass Index 20.5 Const: Other: Awake alert agitated Resp: Other: Clear to auscultation bilaterally no rales rhonchi or wheezes Cardio: Other: No S4; positive S1-S2; no S3 murmurs rubs or gallops GI: Other: Soft nontender nondistended normoactive bowel sounds Extrem: Other: No edema bilaterally Objective Data Active Medications Acetaminophen (Acetaminophen 325 Mg Tablet) 650 mg PO Q6H PRN PRN Reason: Headache/Pain Mild Scale (1-3) Last Admin: 09/30/22 09:02 Dose: 650 mg Documented By: HOANG Al Hydroxide/Mg Hydroxide (Magnesium Hydrox/Alum Hydrox 30 Ml Oral.Susp) 30 ml PO Q6H PRN PRN Reason: Heartburn/Nausea Albuterol Sulfate (Albuterol Sulfate 90 Mcg 8 Gm Inhaler) 1 puff INHALE RQ4H PRN PRN Reason: Dyspnea Atorvastatin Calcium (Atorvastatin Calcium 10 Mg Tablet) 10 mg PO BEDTIME [facility] Last Admin: 09/29/22 22:09 Dose: 10 mg Documented By: ARMINDA Buspirone HCl (Buspirone Hcl 10 Mg Tablet) 10 mg PO BID [facility] Last Admin: 09/30/22 09:02 Dose: 10 mg Documented By: HOANG Albuterol Sulfate 2.5 mg/ (Ipratropium [place] 0.5 mg) 0 mg INHALE RQ4H WHILE AWAKE [facility] Last Admin: 09/30/22 15:45 Dose: Not Given Documented By: SUSIE Non-Admin Reason: pt keeps removing Divalproex Sodium (Divalproex Sodium Sprinkles 125 Mg ) 250 mg PO TID [facility] Last Admin: 09/30/22 14:22 Dose: 250 mg Documented By: HOANG Escitalopram Oxalate (Escitalopram Oxalate 10 Mg Tablet) 10 mg PO DAILY [facility] Last Admin: 09/30/22 09:02 Dose: 10 mg Documented By: HOANG Gabapentin (Gabapentin 100 Mg Capsule) 100 mg PO TID [facility] Last Admin: 09/30/22 14:22 Dose: 100 mg Documented By: HOANG Heparin Sodium (Porcine) (Heparin Sodium,Porcine 5,000 Unit/Ml Vial) 5,000 unit SUBCUT Q12H [facility] Last Admin: 09/30/22 14:22 Dose: 5,000 unit Documented By: HOANG Sodium Chloride (Ns) 1,000 mls @ 100 mls/hr IVCONT .Q10H [facility] Last Admin: 09/30/22 14:22 Dose: 100 mls/hr Documented By: HOANG Magnesium Hydroxide (Milk Of Magnesia 30 Ml Oral.Susp) 30 ml PO DAILY PRN PRN Reason: Constipation Memantine (Memantine Hcl 5 Mg Tablet) 5 mg PO DAILY [facility] Last Admin: 09/30/22 09:02 Dose: 5 mg Documented By: HOANG Methylprednisolone Sodium Succinate (Methylprednisolone Sod Succ 40 Mg/Ml Vial) 40 mg IVPUSH Q12H [facility] Last Admin: 09/30/22 09:02 Dose: 40 mg Documented By: HOANG Non-Formulary Medication (Trelegy Ellipta) 100 mcg INHALE DAILY [facility] Omeprazole (Omeprazole 20 Mg Capsule.) 20 mg PO DAILY@0630 [facility] Last Admin: 09/30/22 09:02 Dose: 20 mg Documented By: HOANG Risperidone (Risperidone 1 Mg Tablet) 1 mg PO BID [facility] Last Admin: 09/30/22 09:02 Dose: 1 mg Documented By: HOANG Sodium Chloride (0.9 % Sodium Chloride Flush 3 Ml Syringe) 3 ml IVFLUSH QSHIFT [facility] Last Admin: 09/30/22 15:44 Dose: 3 ml Documented By: HOANG Trazodone HCl (Trazodone Hcl 100 Mg Tablet) 100 mg PO BEDTIME [facility] Last Admin: 09/29/22 22:09 Dose: 100 mg Documented By: CRAWFS Labs 09/29/22 18:47 09/29/22 18:47 Labs: Laboratory Results - last 24 hr 09/29/22 09/29/22 09/29/22 18:47 18:47 18:47 MCV 87.0 MCH 28.1 MCHC 32.3 RDW 13.9 Plt Count 216 MPV 10.8 Immature Gran % (Auto) 0.8 H Neut % (Auto) 73.6 H Lymph % (Auto) 12.5 L [place] % (Auto) 11.0 Eos % (Auto) 1.4 Baso % (Auto) 0.7 Lymph # (Auto) 1.0 L [place] # (Auto) 0.8 Eos # (Auto) 0.1 Baso # (Auto) 0.1 Abs Immat Gran (auto) 0.06 H Absolute Neuts (auto) 5.6 Absolute Nucleated RBC 0.000 Nucleated RBC % (auto) 0.0 D-Dimer High Sensitivty VBG pH VBG pCO2 VBG pO2 VBG HCO3 VBG O2 Saturation VBG Base Excess Anion Gap 10 L Estim Creat Clear Calc 63.9 Estimated GFR > 60 Random Glucose 143 H Lactic Acid 1.4 Calcium 8.6 Total Bilirubin 0.7 AST 11 ALT 6 Alkaline Phosphatase 64 Ammonia Total Protein 5.5 L Albumin 3.7 09/29/22 09/29/22 09/29/22 18:47 18:47 18:56 MCV MCH MCHC RDW Plt Count MPV Immature Gran % (Auto) Neut % (Auto) Lymph % (Auto) [place] % (Auto) Eos % (Auto) Baso % (Auto) Lymph # (Auto) [place] # (Auto) Eos # (Auto) Baso # (Auto) Abs Immat Gran (auto) Absolute Neuts (auto) Absolute Nucleated RBC Nucleated RBC % (auto) D-Dimer High Sensitivty < 150 VBG pH 7.51 H VBG pCO2 32 VBG pO2 66 VBG HCO3 26 VBG O2 Saturation 95.0 VBG Base Excess 4.0 Anion Gap Estim Creat Clear Calc Estimated GFR Random Glucose Lactic Acid Calcium Total Bilirubin AST ALT Alkaline Phosphatase Ammonia 44 Total Protein Albumin 09/30/22 07:33 MCV MCH MCHC RDW Plt Count MPV Immature Gran % (Auto) Neut % (Auto) Lymph % (Auto) [place] % (Auto) Eos % (Auto) Baso % (Auto) Lymph # (Auto) [place] # (Auto) Eos # (Auto) Baso # (Auto) Abs Immat Gran (auto) Absolute Neuts (auto) Absolute Nucleated RBC Nucleated RBC % (auto) D-Dimer High Sensitivty VBG pH 7.46 H VBG pCO2 36 VBG pO2 153 VBG HCO3 25 VBG O2 Saturation 100.0 VBG Base Excess 2.2 Anion Gap Estim Creat Clear Calc Estimated GFR Random Glucose Lactic Acid Calcium Total Bilirubin AST ALT Alkaline Phosphatase Ammonia Total Protein Albumin Assessment and Plan (1) Acute respiratory failure with hypoxia: Status: Acute (2) COPD (chronic obstructive pulmonary disease): Status: Acute (3) Dementia: Status: Acute Plan 67-year-old female with history of unspecified dementia, depression, and COPD admitted for acute hypoxemic respiratory failure admitted to hospitalist service from Psychiatry for further management of acute hypoxic respiratory failure; likely secondary to recent COVID-19 infection in backdrop of COPD/interstitial lung disease 1.Acute hypoxic respiratory failure- following COVID-19 diagnosed 09/19 -continue supplemental O2 to maintain oximetry around 92%... Titrate as indicated -Solu-Medrol 125 mg IV push x1 tonight 2.COPD/interstitial lung disease -making sputum, will treat with oral doxycyclineo -Solu-Medrol as ordered -DuoNebs q.4h -continue trilogy Ellipta 3.Unspecified dementia with behavioral disturbance and depression -continue Risperdal, Namenda, Lexapro, Depakote, BuSpar -Psychiatry consult in am Lovenox Full code Patient requires ongoing hospitalization for IV steroids to treat hypoxia likely secondary to COVID-19 in backdrop of COPD interstitial lung disease Time Spent With Patient Time: Total time managing care of this patient today ____ minutes. Quality Stroke Does the patient have a stroke diagnosis?: No VTE Prior VTE?: No VTE Risk Level:: Medical - moderate - high VTE Device Contraindication: Treatment Not Indicated VTE Drug Contraindication: N/A - Med Ordered
[2022-09-30] MEDS: methylPREDNISolone Sod Succ 125 MG/2 ML VIAL IVPUSH (17:34)
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
[2022-09-30] MEDS: Haloperidol Lactate 5 MG/ML VIAL 2.5 MG IM (18:21)
[2022-09-30] MEDS: LORazepam 2 MG/ML VIAL 1 MG IVPUSH (18:22)
[2022-09-30] MEDS: traZODone HCL 100 MG TABLET PO (21:14)
[2022-09-30] MEDS: Atorvastatin Calcium 10 MG TABLET PO (21:14)
[2022-10-01] VITALS (13 sets, daily range): BP systolic 103–150; BP diastolic 56–74; PULSE 50–84; RESP 16–20; TEMP 36.4–36.7; O2SAT 93–100
[2022-10-01] MEDS: Heparin Sodium,Porcine 5,000 UNIT/ML VIAL 5000 UNIT SUBCUT (06:24)
--- NOTE | 2022-10-01 06:30 | PC.NURSE ---
Patient remains in soft restraints. Throughout shift right restraint was removed at 01:00. Patient remains asleep will reassess when awake. Restraint policy followed per protocol.
[2022-10-01] MEDS: busPIRone HCl 10 MG TABLET PO (07:55)
[2022-10-01] MEDS: Escitalopram Oxalate 10 MG TABLET PO (07:56)
[2022-10-01] MEDS: 0.9 % Sodium Chloride Flush 3 ML SYRINGE IVFLUSH ×2 (07:56→23:16)
[2022-10-01] MEDS: risperiDONE 1 MG TABLET PO (07:56)
[2022-10-01] MEDS: Divalproex Sodium Sprinkles 125 MG CAP.DR.SPR 250 MG PO ×2 (07:56→15:25)
[2022-10-01] MEDS: Memantine HCl 5 MG TABLET PO (07:56)
[2022-10-01] MEDS: Gabapentin 100 MG CAPSULE PO ×2 (07:56→15:25)
[2022-10-01] MEDS: 0.9 % Sodium Chloride 1,000 ML 100 ML IVCONT (16:57)
--- NOTE | 2022-10-01 17:02 | HO.PM.IMPN ---
Subjective Subjective Date of Service: 10/01/22 Interval History: remains combative and a threat to self and others; soft restraints continue Review of Systems unable to obtain Physical Exam Vital Signs: Vital Signs: Last Vital Signs Temp 98.0 F 10/01/22 15:20 Pulse 61 10/01/22 15:20 Resp 20 10/01/22 15:20 BP 135/62 10/01/22 15:20 Pulse Ox 98 10/01/22 15:20 O2 Del Method 10/01/22 15:20 O2 Flow Rate 2 10/01/22 15:20 BMI result Body Mass Index 20.5 Const: Other: confused/ aggressive. Soft restraints continue Resp: Other: clear to auscultation bilaterally no rales rhonchi wheezes Cardio: Other: no S4; positive S1-S2; no S3 murmurs rubs or gallops GI: Other: soft nontender nondistended normo Extrem: Other: no edema bilateral Objective Data Active Medications Acetaminophen (Acetaminophen 325 Mg Tablet) 650 mg PO Q6H PRN PRN Reason: Headache/Pain Mild Scale (1-3) Last Admin: 09/30/22 09:02 Dose: 650 mg Documented By: HOANG Al Hydroxide/Mg Hydroxide (Magnesium Hydrox/Alum Hydrox 30 Ml Oral.Susp) 30 ml PO Q6H PRN PRN Reason: Heartburn/Nausea Albuterol Sulfate (Albuterol Sulfate 90 Mcg 8 Gm Inhaler) 1 puff INHALE RQ4H PRN PRN Reason: Dyspnea Atorvastatin Calcium (Atorvastatin Calcium 10 Mg Tablet) 10 mg PO BEDTIME [facility] Last Admin: 09/30/22 21:14 Dose: 10 mg Documented By: JEMMA Buspirone HCl (Buspirone Hcl 10 Mg Tablet) 10 mg PO BID [facility] Last Admin: 10/01/22 07:55 Dose: 10 mg Documented By: ANA Albuterol Sulfate 2.5 mg/ (Ipratropium [place] 0.5 mg) 0 mg INHALE RQ4H WHILE AWAKE [facility] Last Admin: 10/01/22 15:37 Dose: 2.5 each Documented By: SUSIE Divalproex Sodium (Divalproex Sodium Sprinkles 125 Mg ) 250 mg PO TID [facility] Last Admin: 10/01/22 15:25 Dose: 250 mg Documented By: ANA Escitalopram Oxalate (Escitalopram Oxalate 10 Mg Tablet) 10 mg PO DAILY [facility] Last Admin: 10/01/22 07:56 Dose: 10 mg Documented By: ANA Gabapentin (Gabapentin 100 Mg Capsule) 100 mg PO TID [facility] Last Admin: 10/01/22 15:25 Dose: 100 mg Documented By: ANA Heparin Sodium (Porcine) (Heparin Sodium,Porcine 5,000 Unit/Ml Vial) 5,000 unit SUBCUT Q12H [facility] Last Admin: 10/01/22 06:24 Dose: 5,000 unit Documented By: JEMMA Sodium Chloride (Ns) 1,000 mls @ 100 mls/hr IVCONT .Q10H [facility] Last Admin: 10/01/22 16:57 Dose: 100 mls/hr Documented By: ANA Magnesium Hydroxide (Milk Of Magnesia 30 Ml Oral.Susp) 30 ml PO DAILY PRN PRN Reason: Constipation Memantine (Memantine Hcl 5 Mg Tablet) 5 mg PO DAILY [facility] Last Admin: 10/01/22 07:56 Dose: 5 mg Documented By: ANA Non-Formulary Medication (Trelegy Ellipta) 100 mcg INHALE DAILY [facility] Omeprazole (Omeprazole 20 Mg Capsule.Dr) 20 mg PO DAILY@0630 [facility] Last Admin: 10/01/22 06:25 Dose: Not Given Documented By: JEMMA Non-Admin Reason: Patient Refused Risperidone (Risperidone 1 Mg Tablet) 1 mg PO BID [facility] Last Admin: 10/01/22 07:56 Dose: 1 mg Documented By: ANA Sodium Chloride (0.9 % Sodium Chloride Flush 3 Ml Syringe) 3 ml IVFLUSH QSHIFT [facility] Last Admin: 10/01/22 16:59 Dose: Not Given Documented By: ANA Non-Admin Reason: IV Running Trazodone HCl (Trazodone Hcl 100 Mg Tablet) 100 mg PO BEDTIME [facility] Last Admin: 09/30/22 21:14 Dose: 100 mg Documented By: JEMMA Labs 09/29/22 18:47 09/29/22 18:47 Assessment and Plan (1) Acute respiratory failure with hypoxia: Status: Acute (2) COPD (chronic obstructive pulmonary disease): Status: Acute (3) Dementia: Status: Acute Plan 67-year-old female with history of unspecified dementia, depression, and COPD admitted for acute hypoxemic respiratory failure admitted to hospitalist service from Psychiatry for further management of acute hypoxic respiratory failure; likely secondary to recent COVID-19 infection in backdrop of COPD/interstitial lung disease 1.Acute hypoxic respiratory failure- following COVID-19 diagnosed 09/19 -continue supplemental O2 to maintain oximetry around 92%...? Titrate as indicated -Solu-Medrol 125 mg IV push x1 tonight 2.COPD/interstitial lung disease -making sputum, will treat with oral doxycyclineo -Solu-Medrol as ordered -DuoNebs q.4h -continue trilogy Ellipta 3.Unspecified dementia with behavioral disturbance and depression -continue Risperdal, Namenda, Lexapro, Depakote, BuSpar -Psychiatry consult in am Lovenox Full code Patient requires ongoing hospitalization for IV steroids to treat hypoxia likely secondary to COVID-19 in backdrop of COPD interstitial lung diseas Time Spent With Patient Time: Total time managing care of this patient today ____ minutes. Quality Stroke Does the patient have a stroke diagnosis?: No VTE Prior VTE?: No VTE Risk Level:: Medical - moderate - high VTE Device Contraindication: Treatment Not Indicated VTE Drug Contraindication: N/A - Med Ordered
[2022-10-01] MEDS: methylPREDNISolone Sod Succ 125 MG/2 ML VIAL IVPUSH (17:41)
[2022-10-01] MEDS: LORazepam 2 MG/ML VIAL 1 MG IVPUSH (18:31)
[2022-10-02] VITALS (7 sets, daily range): BP systolic 120–164; BP diastolic 56–94; PULSE 54–76; RESP 14–18; TEMP 36.2–36.9; O2SAT 83–93
[2022-10-02] MEDS: methylPREDNISolone Sod Succ 125 MG/2 ML VIAL 60 MG IVPUSH (06:22)
[2022-10-02] MEDS: Heparin Sodium,Porcine 5,000 UNIT/ML VIAL 5000 UNIT SUBCUT (06:23)
[2022-10-02] MEDS: Escitalopram Oxalate 10 MG TABLET PO (08:16)
[2022-10-02] MEDS: Divalproex Sodium Sprinkles 125 MG CAP.DR.SPR 250 MG PO ×3 (08:16→22:01)
[2022-10-02] MEDS: busPIRone HCl 10 MG TABLET PO ×2 (08:16→22:02)
[2022-10-02] MEDS: Memantine HCl 5 MG TABLET PO (08:17)
[2022-10-02] MEDS: Gabapentin 100 MG CAPSULE PO ×3 (08:17→22:02)
[2022-10-02] MEDS: risperiDONE 1 MG TABLET PO ×2 (08:17→22:02)
[2022-10-02] MEDS: 0.9 % Sodium Chloride Flush 3 ML SYRINGE IVFLUSH (08:17)
--- NOTE | 2022-10-02 11:33 | MHC.CM.PN ---
Addendum entered by Ana Pretty 10/02/22 14:29: A call was received from [facility] [phone]. Call him for auth during the week. Weekend auth [phone]. The [facility] will need to assess the patient prior to discharge, for her return. The Director, Estephanie Aranda, needs to be called for the return assessment [phone]. Original Note: The patient continues w soft restraints. Per MD rounds Psych to assess patient. DP to be determined once psych recs available.
--- NOTE | 2022-10-02 14:16 | HO.PM.IMPN ---
Subjective Subjective Date of Service: 10/02/22 Interval History: remains in soft restraints secondary to risk of harm to self and others Review of Systems unable to obtain Physical Exam Vital Signs: Vital Signs: Last Vital Signs Temp 97.2 F 10/02/22 11:35 Pulse 71 10/02/22 11:35 Resp 18 10/02/22 11:35 BP 133/94 H 10/02/22 11:35 Pulse Ox 91 L 10/02/22 11:35 O2 Del Method 10/02/22 11:35 O2 Flow Rate 1 10/02/22 07:55 BMI result Body Mass Index 20.5 Const: Other: confused/ aggressive. Soft restraints continue Resp: Other: clear to auscultation bilaterally no rales rhonchi wheezes Cardio: Other: no S4; positive S1-S2; no S3 murmurs rubs or gallops GI: Other: soft nontender nondistended normo Extrem: Other: no edema bilateral Objective Data Active Medications Acetaminophen (Acetaminophen 325 Mg Tablet) 650 mg PO Q6H PRN PRN Reason: Headache/Pain Mild Scale (1-3) Last Admin: 09/30/22 09:02 Dose: 650 mg Documented By: HOANG Al Hydroxide/Mg Hydroxide (Magnesium Hydrox/Alum Hydrox 30 Ml Oral.Susp) 30 ml PO Q6H PRN PRN Reason: Heartburn/Nausea Albuterol Sulfate (Albuterol Sulfate 90 Mcg 8 Gm Inhaler) 1 puff INHALE RQ4H PRN PRN Reason: Dyspnea Atorvastatin Calcium (Atorvastatin Calcium 10 Mg Tablet) 10 mg PO BEDTIME [facility] Last Admin: 10/01/22 22:22 Dose: Not Given Documented By: KERRI Non-Admin Reason: Patient Refused Buspirone HCl (Buspirone Hcl 10 Mg Tablet) 10 mg PO BID [facility] Last Admin: 10/02/22 08:16 Dose: 10 mg Documented By: ANA Albuterol Sulfate 2.5 mg/ (Ipratropium [place] 0.5 mg) 0 mg INHALE RQ4H WHILE AWAKE [facility] Last Admin: 10/02/22 12:19 Dose: Not Given Documented By: KIMBERLY Non-Admin Reason: Patient Refused Divalproex Sodium (Divalproex Sodium Sprinkles 125 Mg ) 250 mg PO TID [facility] Last Admin: 10/02/22 08:16 Dose: 250 mg Documented By: ANA Escitalopram Oxalate (Escitalopram Oxalate 10 Mg Tablet) 10 mg PO DAILY [facility] Last Admin: 10/02/22 08:16 Dose: 10 mg Documented By: ANA Gabapentin (Gabapentin 100 Mg Capsule) 100 mg PO TID [facility] Last Admin: 10/02/22 08:17 Dose: 100 mg Documented By: ANA Heparin Sodium (Porcine) (Heparin Sodium,Porcine 5,000 Unit/Ml Vial) 5,000 unit SUBCUT Q12H [facility] Last Admin: 10/02/22 06:23 Dose: 5,000 unit Documented By: KERRI Magnesium Hydroxide (Milk Of Magnesia 30 Ml Oral.Susp) 30 ml PO DAILY PRN PRN Reason: Constipation Memantine (Memantine Hcl 5 Mg Tablet) 5 mg PO DAILY [facility] Last Admin: 10/02/22 08:17 Dose: 5 mg Documented By: ANA Methylprednisolone Sodium Succinate (Methylprednisolone Sod Succ 125 Mg/2 Ml Vial) 60 mg IVPUSH Q6H [facility] Last Admin: 10/02/22 11:35 Dose: Not Given Documented By: ANA Non-Admin Reason: Patient Refused Non-Formulary Medication (Trelegy Ellipta) 100 mcg INHALE DAILY [facility] Omeprazole (Omeprazole 20 Mg Capsule.) 20 mg PO DAILY@0630 [facility] Last Admin: 10/02/22 06:23 Dose: Not Given Documented By: KERRI Non-Admin Reason: Patient Refused Risperidone (Risperidone 1 Mg Tablet) 1 mg PO BID [facility] Last Admin: 10/02/22 08:17 Dose: 1 mg Documented By: ANA Sodium Chloride (0.9 % Sodium Chloride Flush 3 Ml Syringe) 3 ml IVFLUSH QSHIFT [facility] Last Admin: 10/02/22 08:17 Dose: 3 ml Documented By: ANA Trazodone HCl (Trazodone Hcl 100 Mg Tablet) 100 mg PO BEDTIME [facility] Last Admin: 10/01/22 22:22 Dose: Not Given Documented By: KERRI Non-Admin Reason: Patient Refused Labs 09/29/22 18:47 09/29/22 18:47 Assessment and Plan (1) Acute respiratory failure with hypoxia: Status: Acute (2) Dementia: Status: Acute Plan 67-year-old female with history of unspecified dementia, depression, and COPD admitted for acute hypoxemic respiratory failure admitted to hospitalist service from Psychiatry for further management of acute hypoxic respiratory failure; likely secondary to recent COVID-19 infection in backdrop of COPD/interstitial lung disease 1.Acute hypoxic respiratory failure- following COVID-19 diagnosed 09/19 -Solu-Medrol 125 mg IV push x1 additional dose - now on room air 2.COPD/interstitial lung disease -making sputum, will treat with oral doxycyclineo -Solu-Medrol as ordered -DuoNebs q.4h -continue trilogy Ellipta 3.Unspecified dementia with behavioral disturbance and depression -continue Risperdal, Namenda, Lexapro, Depakote, BuSpar -Psychiatry consult in [facility] Full code Patient requires ongoing hospitalization for IV steroids to treat hypoxia likely secondary to COVID-19 in backdrop of COPD interstitial lung diseas Time Spent With Patient Time: Total time managing care of this patient today ____ minutes. Quality Stroke Does the patient have a stroke diagnosis?: No VTE Prior VTE?: No VTE Risk Level:: Medical - moderate - high VTE Device Contraindication: Treatment Not Indicated VTE Drug Contraindication: N/A - Med Ordered
--- NOTE | 2022-10-02 15:42 | PC.NURSE ---
pt has been struggling against bp cuff resulting in artificially high BPs
[2022-10-02] MEDS: Atorvastatin Calcium 10 MG TABLET PO (22:01)
[2022-10-02] MEDS: traZODone HCL 100 MG TABLET PO (22:01)
[2022-10-03] VITALS (7 sets, daily range): BP systolic 101–148; BP diastolic 51–79; PULSE 43–65; RESP 16–20; TEMP 36.3–37; O2SAT 93–98
[2022-10-03] MEDS: 0.9 % Sodium Chloride Flush 3 ML SYRINGE IVFLUSH ×4 (00:41→20:40)
[2022-10-03] MEDS: methylPREDNISolone Sod Succ 125 MG/2 ML VIAL 60 MG IVPUSH ×5 (00:41→23:06)
[2022-10-03] MEDS: Heparin Sodium,Porcine 5,000 UNIT/ML VIAL 5000 UNIT SUBCUT ×2 (05:11→16:54)
[2022-10-03] MEDS: Divalproex Sodium Sprinkles 125 MG CAP.DR.SPR 250 MG PO ×2 (07:44→13:43)
[2022-10-03] MEDS: Gabapentin 100 MG CAPSULE PO (07:44)
[2022-10-03] MEDS: Memantine HCl 5 MG TABLET PO (07:44)
[2022-10-03] MEDS: busPIRone HCl 10 MG TABLET PO (07:44)
[2022-10-03] MEDS: risperiDONE 1 MG TABLET PO (07:44)
[2022-10-03] MEDS: Escitalopram Oxalate 10 MG TABLET PO (07:44)
--- NOTE | 2022-10-03 10:44 | PC.NURSE ---
Pt very sleepy this am with no behaviors. Pt in soft hand restraints for pulling on medical devices, e.g IV, O2 tubing etc. Positive CMS to bilateral upper extremities. Pt needs such as toileting and food met. Restraints discontinued a 0930.
[2022-10-03 11:41] LABS: Basophils Percent Auto 0.2 % (0-2); Eosinophils Percent Auto 0.1 % (0-4); Hematocrit 35.7 % (37.0-47.0); Hemoglobin 11.7 g/dl (12.0-16.0); Imm Gran Abs Auto 0.11 X10*3/uL (0.00-0.03); Imm Gran Pct Auto 0.9 % (0.0-0.4); Lymphocytes Absolute Auto 0.5 X10*3/uL (1.2-4.9); Lymphocytes Percent Auto 4.2 % (20-40); MANUAL DIFF FLAG NO; Mean Corpuscular HGB Conc 32.8 g/dl (31.0-35.0); Mean Corpuscular Hemoglobin 28.6 pg (27.0-33.0); Mean Corpuscular Volume 87.3 fL (80.0-98.0); Mean Platelet Volume 11.1 fL (9.4-12.3); Monocytes Absolute Auto 0.7 X10*3/uL (0.1-1.2); Monocytes Percent Auto 5.8 % (2-11); Neutrophils Absolute Auto 11.2 x10*3/uL (2.0-8.3); Neutrophils Percent Auto 88.8 % (45-73); Platelet Count 226 X10*3/uL (160-400); Red Blood Count 4.09 X10*6/uL (4.20-5.50); White Blood Count 12.7 X10*3/uL (4.8-10.8)
[2022-10-03 13:03] LABS: Alanine Aminotransferase 6 U/L (0-31); Alkaline Phosphatase 53 U/L (39-117); Ammonia 65 umol/L (13-55); Anion Gap 10 (12-20); Aspartate Amino Transferase 8 U/L (5-31); Bilirubin Total 0.3 mg/dL (0.0-1.0); Blood Urea Nitrogen 13 mg/dL (9-16); Carbon Dioxide 33 mmol/L (22-29); Chloride 105 mmol/L (96-108); Creatinine Clr Calc Pharmacy 69.9; Estimated Glomerular Filt Rate > 60; Glucose Random 160 mg/dL (60-115); Sodium 144 mmol/L (135-145); Total Protein 4.6 g/dL (6.5-8.0)
[2022-10-03 13:24] LABS: Color Urine Dark Yellow; Glucose Urine UA Negative (Negative); Leukocyte Esterase Urine Negative (Negative); Nitrite Urine Negative (Negative); PH 6.5 (5.0-9.0); Specific Gravity - Urine 1.025 (1.005-1.025); Urine Blood Negative (Negative); Urine Ketones 15 mg/dL (Negative); Urine Protein Negative (Neg-Trace)
[2022-10-03 13:27] LABS: Appearance Urine Clear
--- NOTE | 2022-10-03 14:46 | P.PNIM_ITS ---
Subjective Subjective Date of Service: 10/03/22 Interval History: somnolent but arousable. restraints able to be taken off Review of Systems unable to obtain Physical Exam Vital Signs: Vital Signs: Last Vital Signs Temp 98.0 F 10/03/22 11:09 Pulse 46 L 10/03/22 11:09 Resp 20 10/03/22 11:09 BP 118/61 10/03/22 11:09 Pulse Ox 98 10/03/22 11:09 O2 Del Method 10/03/22 11:09 O2 Flow Rate 5 10/03/22 11:09 BMI result Body Mass Index 20.5 Const: Other: confused/ aggressive. Soft restraints continue Resp: Other: clear to auscultation bilaterally no rales rhonchi wheezes Cardio: Other: no S4; positive S1-S2; no S3 murmurs rubs or gallops GI: Other: soft nontender nondistended normo Extrem: Other: no edema bilateral Objective Data Active Medications Acetaminophen (Acetaminophen 325 Mg Tablet) 650 mg PO Q6H PRN PRN Reason: Headache/Pain Mild Scale (1-3) Last Admin: 09/30/22 09:02 Dose: 650 mg Documented By: HOANG Al Hydroxide/Mg Hydroxide (Magnesium Hydrox/Alum Hydrox 30 Ml Oral.Susp) 30 ml PO Q6H PRN PRN Reason: Heartburn/Nausea Albuterol Sulfate (Albuterol Sulfate 90 Mcg 8 Gm Inhaler) 1 puff INHALE RQ4H PRN PRN Reason: Dyspnea Atorvastatin Calcium (Atorvastatin Calcium 10 Mg Tablet) 10 mg PO BEDTIME [facility] Last Admin: 10/02/22 22:01 Dose: 10 mg Documented By: NICOLE Buspirone HCl (Buspirone Hcl 10 Mg Tablet) 10 mg PO BID [facility] Last Admin: 10/03/22 07:44 Dose: 10 mg Documented By: DES Albuterol Sulfate 2.5 mg/ (Ipratropium [place] 0.5 mg) 0 mg INHALE RQ4H WHILE AWAKE [facility] Last Admin: 10/03/22 11:24 Dose: 2.5 each Documented By: CHARLES Divalproex Sodium (Divalproex Sodium Sprinkles 125 Mg ) 250 mg PO TID [facility] Last Admin: 10/03/22 13:43 Dose: 250 mg Documented By: DES Escitalopram Oxalate (Escitalopram Oxalate 10 Mg Tablet) 10 mg PO DAILY [facility] Last Admin: 10/03/22 07:44 Dose: 10 mg Documented By: DES Fluticasone/Vilanterol (Fluticasone/Vilanterol 100/25 Blst.W.Dev) 1 puff INHALE RDAILY [facility] Last Admin: 10/03/22 09:56 Dose: Not Given Documented By: SYLVIE Non-Admin Reason: Patient Refused Heparin Sodium (Porcine) (Heparin Sodium,Porcine 5,000 Unit/Ml Vial) 5,000 unit SUBCUT Q12H [facility] Last Admin: 10/03/22 05:11 Dose: 5,000 unit Documented By: SARAI Magnesium Hydroxide (Milk Of Magnesia 30 Ml Oral.Susp) 30 ml PO DAILY PRN PRN Reason: Constipation Memantine (Memantine Hcl 5 Mg Tablet) 5 mg PO DAILY [facility] Last Admin: 10/03/22 07:44 Dose: 5 mg Documented By: DES Methylprednisolone Sodium Succinate (Methylprednisolone Sod Succ 125 Mg/2 Ml Vial) 60 mg IVPUSH Q6H [facility] Last Admin: 10/03/22 13:02 Dose: 60 mg Documented By: SYLVIE Omeprazole (Omeprazole 20 Mg Capsule.) 20 mg PO DAILY@0630 [facility] Last Admin: 10/03/22 05:36 Dose: Not Given Documented By: SARAI Non-Admin Reason: Patient Refused Risperidone (Risperidone 1 Mg Tablet) 1 mg PO BID [facility] Last Admin: 10/03/22 07:44 Dose: 1 mg Documented By: DES Sodium Chloride (0.9 % Sodium Chloride Flush 3 Ml Syringe) 3 ml IVFLUSH QSHIFT [facility] Last Admin: 10/03/22 13:03 Dose: 3 ml Documented By: SYLVIE Tiotropium [place] (Tiotropium [place] 18 Mcg Cap.W.Dev) 1 puff INHALE RDAILY [facility] Last Admin: 10/03/22 10:36 Dose: Not Given Documented By: SYLVIE Non-Admin Reason: Patient Asleep Trazodone HCl (Trazodone Hcl 100 Mg Tablet) 100 mg PO BEDTIME [facility] Last Admin: 10/02/22 22:01 Dose: 100 mg Documented By: NICOLE Labs 10/03/22 11:35 10/03/22 11:35 Labs: Laboratory Results - last 24 hr 10/03/22 10/03/22 10/03/22 11:35 11:35 11:35 MCV 87.3 MCH 28.6 MCHC 32.8 RDW 14.0 Plt Count 226 MPV 11.1 Immature Gran % (Auto) 0.9 H Neut % (Auto) 88.8 H Lymph % (Auto) 4.2 L [place] % (Auto) 5.8 Eos % (Auto) 0.1 Baso % (Auto) 0.2 Lymph # (Auto) 0.5 L [place] # (Auto) 0.7 Eos # (Auto) 0.0 Baso # (Auto) 0.0 Abs Immat Gran (auto) 0.11 H Absolute Neuts (auto) 11.2 H Absolute Nucleated RBC 0.000 Nucleated RBC % (auto) 0.0 Anion Gap 10 L Estim Creat Clear Calc 69.9 Estimated GFR > 60 Random Glucose 160 H Calcium 8.0 L D Total Bilirubin 0.3 AST 8 ALT 6 Alkaline Phosphatase 53 Ammonia 65 H Total Protein 4.6 L Albumin 3.0 L Urine Color Urine Appearance Urine pH Ur Specific [place] Urine Protein Urine Glucose (UA) Urine Ketones Urine Blood Urine Nitrite Ur Leukocyte Esterase 10/03/22 12:19 MCV MCH MCHC RDW Plt Count MPV Immature Gran % (Auto) Neut % (Auto) Lymph % (Auto) [place] % (Auto) Eos % (Auto) Baso % (Auto) Lymph # (Auto) [place] # (Auto) Eos # (Auto) Baso # (Auto) Abs Immat Gran (auto) Absolute Neuts (auto) Absolute Nucleated RBC Nucleated RBC % (auto) Anion Gap Estim Creat Clear Calc Estimated GFR Random Glucose Calcium Total Bilirubin AST ALT Alkaline Phosphatase Ammonia Total Protein Albumin Urine Color Dark Yellow Urine Appearance Clear Urine pH 6.5 Ur Specific [place] 1.025 Urine Protein Negative Urine Glucose (UA) Negative Urine Ketones 15 Urine Blood Negative Urine Nitrite Negative Ur Leukocyte Esterase Negative Assessment and Plan (1) Acute respiratory failure with hypoxia: Status: Acute (2) COPD (chronic obstructive pulmonary disease): Status: Acute (3) Dementia: Status: Acute Plan 67-year-old female with history of unspecified dementia, depression, and COPD admitted for acute hypoxemic respiratory failure admitted to hospitalist service from Psychiatry for further management of acute hypoxic respiratory failure; likely secondary to recent COVID-19 infection in backdrop of COPD/interstitial lung disease 1.Acute hypoxic respiratory failure- following COVID-19 diagnosed 09/19 -Solu-Medrol 125 mg IV push x1 additional dose...q6h dosing - titrate O2 as tolerated 2.COPD/interstitial lung disease -making sputum, will treat with oral doxycyclineo -Solu-Medrol as ordered -DuoNebs q.4h -continue trilogy Ellipta 3.Unspecified dementia with behavioral disturbance and depression -continue Risperdal, Namenda, Lexapro, Depakote, BuSpar -Psychiatry consult in [facility] Full code Patient requires ongoing hospitalization for IV steroids to treat hypoxia likely secondary to COVID-19 in backdrop of COPD interstitial lung diseas Time Spent With Patient Time: Total time managing care of this patient today ____ minutes. Quality Stroke Does the patient have a stroke diagnosis?: No VTE Prior VTE?: No VTE Risk Level:: Medical - moderate - high VTE Device Contraindication: Treatment Not Indicated VTE Drug Contraindication: N/A - Med Ordered
[2022-10-03] MEDS: Acetaminophen 325 MG TABLET 650 MG PO (17:19)
[2022-10-03] MEDS: LORazepam 2 MG/ML VIAL 0.5 MG IVPUSH (18:01)
[2022-10-04] VITALS (7 sets, daily range): BP systolic 112–144; BP diastolic 54–70; PULSE 54–75; RESP 16–20; TEMP 36.1–37.1; O2SAT 91–96
[2022-10-04] MEDS: methylPREDNISolone Sod Succ 125 MG/2 ML VIAL 60 MG IVPUSH ×3 (05:43→17:01)
[2022-10-04] MEDS: 0.9 % Sodium Chloride Flush 3 ML SYRINGE IVFLUSH ×2 (08:08→17:01)
[2022-10-04] MEDS: Heparin Sodium,Porcine 5,000 UNIT/ML VIAL 5000 UNIT SUBCUT ×2 (08:11→17:01)
[2022-10-04] MEDS: Omeprazole 20 MG CAPSULE.DR PO (08:11)
[2022-10-04] MEDS: risperiDONE 1 MG TABLET PO ×2 (08:11→21:21)
[2022-10-04] MEDS: Divalproex Sodium Sprinkles 125 MG CAP.DR.SPR 250 MG PO ×3 (08:12→21:03)
[2022-10-04] MEDS: busPIRone HCl 10 MG TABLET PO ×2 (08:12→21:03)
[2022-10-04] MEDS: Acetaminophen 325 MG TABLET 650 MG PO (08:12)
[2022-10-04] MEDS: Memantine HCl 5 MG TABLET PO (08:12)
[2022-10-04] MEDS: Escitalopram Oxalate 10 MG TABLET PO (08:12)
[2022-10-04] MEDS: Fluticasone/Vilanterol 100/25 BLST.W.DEV 1 PUFF INHALE (08:13)
[2022-10-04] MEDS: Lactulose 20 GM/30 ML SOLUTION 30 GM PO ×2 (10:51→21:03)
--- NOTE | 2022-10-04 14:15 | HO.PM.IMPN ---
Subjective Subjective Date of Service: 10/04/22 Interval History: somnolent but arousable. No indication for saw for Sharmin as of yet Review of Systems unable to obtain Physical Exam Vital Signs: Vital Signs: Last Vital Signs Temp 98.2 F 10/04/22 11:34 Pulse 62 10/04/22 11:59 Resp 16 10/04/22 11:59 BP 123/59 L 10/04/22 11:34 Pulse Ox 91 L 10/04/22 11:34 O2 Del Method 10/04/22 11:34 O2 Flow Rate 2 10/04/22 11:34 BMI result Body Mass Index 20.5 Const: Other: somnolent but arousable Resp: Other: clear to auscultation bilaterally no rales rhonchi wheezes Cardio: Other: no S4; positive S1-S2; no S3 murmurs rubs or gallops GI: Other: soft nontender nondistended normo Extrem: Other: no edema bilateral Objective Data Active Medications Acetaminophen (Acetaminophen 325 Mg Tablet) 650 mg PO Q6H PRN PRN Reason: Headache/Pain Mild Scale (1-3) Last Admin: 10/04/22 08:12 Dose: 650 mg Documented By: DES Al Hydroxide/Mg Hydroxide (Magnesium Hydrox/Alum Hydrox 30 Ml Oral.Susp) 30 ml PO Q6H PRN PRN Reason: Heartburn/Nausea Albuterol Sulfate (Albuterol Sulfate 90 Mcg 8 Gm Inhaler) 1 puff INHALE RQ4H PRN PRN Reason: Dyspnea Atorvastatin Calcium (Atorvastatin Calcium 10 Mg Tablet) 10 mg PO BEDTIME [facility] Last Admin: 10/03/22 20:55 Dose: Not Given Documented By: JEMMA Non-Admin Reason: Patient Refused Buspirone HCl (Buspirone Hcl 10 Mg Tablet) 10 mg PO BID [facility] Last Admin: 10/04/22 08:12 Dose: 10 mg Documented By: DES Albuterol Sulfate 2.5 mg/ (Ipratropium [place] 0.5 mg) 0 mg INHALE RQ4H WHILE AWAKE [facility] Last Admin: 10/04/22 11:58 Dose: 1 each Documented By: TORRI Divalproex Sodium (Divalproex Sodium Sprinkles 125 Mg ) 250 mg PO TID [facility] Last Admin: 10/04/22 08:12 Dose: 250 mg Documented By: DES Escitalopram Oxalate (Escitalopram Oxalate 10 Mg Tablet) 10 mg PO DAILY [facility] Last Admin: 10/04/22 08:12 Dose: 10 mg Documented By: DES Fluticasone/Vilanterol (Fluticasone/Vilanterol 100/25 Blst.W.Dev) 1 puff INHALE RDAILY [facility] Last Admin: 10/04/22 08:13 Dose: 1 puff Documented By: DES Heparin Sodium (Porcine) (Heparin Sodium,Porcine 5,000 Unit/Ml Vial) 5,000 unit SUBCUT Q12H [facility] Last Admin: 10/04/22 08:11 Dose: 5,000 unit Documented By: DES Lactulose (Lactulose 20 Gm/30 Ml Solution) 30 gm PO BID [facility] Last Admin: 10/04/22 10:51 Dose: 30 gm Documented By: DES Magnesium Hydroxide (Milk Of Magnesia 30 Ml Oral.Susp) 30 ml PO DAILY PRN PRN Reason: Constipation Memantine (Memantine Hcl 5 Mg Tablet) 5 mg PO DAILY [facility] Last Admin: 10/04/22 08:12 Dose: 5 mg Documented By: DES Methylprednisolone Sodium Succinate (Methylprednisolone Sod Succ 125 Mg/2 Ml Vial) 60 mg IVPUSH Q6H [facility] Last Admin: 10/04/22 10:51 Dose: 60 mg Documented By: DES Omeprazole (Omeprazole 20 Mg Capsule.Dr) 20 mg PO DAILY@0630 [facility] Last Admin: 10/04/22 08:11 Dose: 20 mg Documented By: DES Risperidone (Risperidone 1 Mg Tablet) 1 mg PO BID [facility] Last Admin: 10/04/22 08:11 Dose: 1 mg Documented By: DES Sodium Chloride (0.9 % Sodium Chloride Flush 3 Ml Syringe) 3 ml IVFLUSH QSHIFT [facility] Last Admin: 10/04/22 08:08 Dose: 3 ml Documented By: DES Tiotropium [place] (Tiotropium [place] 18 Mcg Cap.W.Dev) 1 puff INHALE RDAILY [facility] Last Admin: 10/04/22 08:13 Dose: 1 puff Documented By: DES Trazodone HCl (Trazodone Hcl 100 Mg Tablet) 100 mg PO BEDTIME [facility] Last Admin: 10/03/22 20:55 Dose: Not Given Documented By: JEMMA Non-Admin Reason: Patient Refused Labs 10/03/22 11:35 10/03/22 11:35 Assessment and Plan (1) Acute respiratory failure with hypoxia: Status: Acute (2) COPD (chronic obstructive pulmonary disease): Status: Acute (3) Dementia: Status: Acute Plan 67-year-old female with history of unspecified dementia, depression, and COPD admitted for acute hypoxemic respiratory failure admitted to hospitalist service from Psychiatry for further management of acute hypoxic respiratory failure; likely secondary to recent COVID-19 infection in backdrop of COPD/interstitial lung disease 1.Acute hypoxic respiratory failure- following COVID-19 diagnosed 09/19 -Solu-Medrol 125 mg IV push x1 additional dose...q6h dosing - titrate O2 as tolerated 2.COPD/interstitial lung disease -making sputum, will treat with IV doxycyclineo -Solu-Medrol as ordered -Melodybs q.4h -continue trilogy Ellipta 3.Unspecified dementia with behavioral disturbance and depression -continue Risperdal, Namenda, Lexapro, Depakote, BuSpar -Psychiatry consult in [facility] Full code Patient requires ongoing hospitalization for IV steroids to treat hypoxia likely secondary to COVID-19 in backdrop of COPD interstitial lung diseas Time Spent With Patient Time: Total time managing care of this patient today ____ minutes. Quality Stroke Does the patient have a stroke diagnosis?: No VTE Prior VTE?: No VTE Risk Level:: Medical - moderate - high VTE Device Contraindication: Treatment Not Indicated VTE Drug Contraindication: N/A - Med Ordered
[2022-10-04] MEDS: Doxycycline Hyclate 100 MG in 0.9 % Sodium Chloride 250 ML 166.67 MG IV (15:18)
[2022-10-04] MEDS: LORazepam 2 MG/ML VIAL 0.5 MG IVPUSH (17:01)
[2022-10-04] MEDS: Atorvastatin Calcium 10 MG TABLET PO (21:03)
[2022-10-04] MEDS: traZODone HCL 100 MG TABLET PO (21:03)
[2022-10-04] MEDS: Haloperidol Lactate 5 MG/ML VIAL 2.5 MG IM (21:06)
[2022-10-05] VITALS (10 sets, daily range): BP systolic 115–142; BP diastolic 60–67; PULSE 46–84; RESP 15–18; TEMP 36–37.1; O2SAT 88–98
[2022-10-05] MEDS: methylPREDNISolone Sod Succ 125 MG/2 ML VIAL 60 MG IVPUSH ×3 (03:21→14:40)
[2022-10-05] MEDS: Doxycycline Hyclate 100 MG in 0.9 % Sodium Chloride 250 ML 166.67 MG IV ×2 (03:22→14:26)
[2022-10-05] MEDS: 0.9 % Sodium Chloride Flush 3 ML SYRINGE IVFLUSH ×2 (03:22→09:03)
[2022-10-05] MEDS: Heparin Sodium,Porcine 5,000 UNIT/ML VIAL 5000 UNIT SUBCUT ×2 (05:48→17:41)
[2022-10-05] MEDS: Omeprazole 20 MG CAPSULE.DR PO (05:48)
[2022-10-05 07:15] LABS: MANUAL DIFF FLAG NO
[2022-10-05 07:22] LABS: Basophils Percent Auto 0.1 % (0-2); Eosinophils Percent Auto 0.1 % (0-4); Hematocrit 37.3 % (37.0-47.0); Hemoglobin 12.2 g/dl (12.0-16.0); Imm Gran Abs Auto 0.17 X10*3/uL (0.00-0.03); Imm Gran Pct Auto 1.1 % (0.0-0.4); Lymphocytes Absolute Auto 0.6 X10*3/uL (1.2-4.9); Lymphocytes Percent Auto 3.7 % (20-40); Mean Corpuscular HGB Conc 32.7 g/dl (31.0-35.0); Mean Corpuscular Hemoglobin 28.4 pg (27.0-33.0); Mean Corpuscular Volume 86.7 fL (80.0-98.0); Mean Platelet Volume 11.1 fL (9.4-12.3); Monocytes Absolute Auto 0.9 X10*3/uL (0.1-1.2); Monocytes Percent Auto 5.8 % (2-11); Neutrophils Absolute Auto 13.6 x10*3/uL (2.0-8.3); Neutrophils Percent Auto 89.2 % (45-73); Platelet Count 251 X10*3/uL (160-400); White Blood Count 15.3 X10*3/uL (4.8-10.8)
[2022-10-05 07:26] LABS: Ammonia 51 umol/L (13-55)
[2022-10-05 07:35] LABS: Alanine Aminotransferase 8 U/L (0-31); Alkaline Phosphatase 48 U/L (39-117); Anion Gap 12 (12-20); Aspartate Amino Transferase 9 U/L (5-31); Bilirubin Total 0.4 mg/dL (0.0-1.0); Blood Urea Nitrogen 14 mg/dL (9-16); Calcium 8.1 mg/dL (8.4-10.2); Carbon Dioxide 31 mmol/L (22-29); Chloride 107 mmol/L (96-108); Creatinine Clr Calc Pharmacy 78.3; Estimated Glomerular Filt Rate > 60; Glucose Fasting 139 mg/dL (60-99); Potassium 3.8 mmol/L (3.3-5.1); Sodium 146 mmol/L (135-145); Total Protein 4.8 g/dL (6.5-8.0)
[2022-10-05] MEDS: Fluticasone/Vilanterol 100/25 BLST.W.DEV 1 PUFF INHALE (08:33)
[2022-10-05] MEDS: Lactulose 20 GM/30 ML SOLUTION 30 GM PO ×2 (09:03→22:05)
[2022-10-05] MEDS: Divalproex Sodium Sprinkles 125 MG CAP.DR.SPR 250 MG PO ×3 (09:04→22:04)
[2022-10-05] MEDS: busPIRone HCl 10 MG TABLET PO ×2 (09:04→22:05)
[2022-10-05] MEDS: risperiDONE 1 MG TABLET PO ×2 (09:04→22:05)
[2022-10-05] MEDS: Memantine HCl 5 MG TABLET PO (09:04)
[2022-10-05] MEDS: Escitalopram Oxalate 10 MG TABLET PO (09:04)
--- NOTE | 2022-10-05 15:58 | MHC.CM.PN ---
EMR REVIEWED PT NOT MEDICALLY CLEARED FOR DC. UPDATE GIVEN TO JEANNE AT [facility].
--- NOTE | 2022-10-05 16:58 | P.PNIM_ITS ---
Subjective Subjective Date of Service: 10/05/22 Interval History: unable to obtain ROS due to dementia but appears in NAD no fever Review of Systems Review of Systems: Yes Unobtainable due to mental status Physical Exam Vital Signs: Vital Signs: Last Vital Signs Temp 98.3 F 10/05/22 16:00 Pulse 63 10/05/22 16:18 Resp 17 10/05/22 16:18 BP 128/62 10/05/22 16:00 Pulse Ox 93 10/05/22 04:00 O2 Del Method 10/05/22 04:00 O2 Flow Rate 2 10/05/22 04:00 BMI result Body Mass Index 20.5 Const: Other: Gen: in no acute distress HEENT: sclera anicteric, moist mucus membranes Neck: supple Lungs: dimimished air entr Heart: regular rate and rhythm, no murmurs Abd: soft, non-tender, non-distended Ext: no edema Skin: warm/well-perfused Neuro: alert, unable to assess orientation Psych: imparied insight Objective Data Active Medications Acetaminophen (Acetaminophen 325 Mg Tablet) 650 mg PO Q6H PRN PRN Reason: Headache/Pain Mild Scale (1-3) Last Admin: 10/04/22 08:12 Dose: 650 mg Documented By: DES Al Hydroxide/Mg Hydroxide (Magnesium Hydrox/Alum Hydrox 30 Ml Oral.Susp) 30 ml PO Q6H PRN PRN Reason: Heartburn/Nausea Albuterol Sulfate (Albuterol Sulfate 90 Mcg 8 Gm Inhaler) 1 puff INHALE RQ4H PRN PRN Reason: Dyspnea Atorvastatin Calcium (Atorvastatin Calcium 10 Mg Tablet) 10 mg PO BEDTIME [facility] Last Admin: 10/04/22 21:03 Dose: 10 mg Documented By: SARAI Buspirone HCl (Buspirone Hcl 10 Mg Tablet) 10 mg PO BID [facility] Last Admin: 10/05/22 09:04 Dose: 10 mg Documented By: THAO Albuterol Sulfate 2.5 mg/ (Ipratropium [place] 0.5 mg) 0 mg INHALE RQ4H WHILE AWAKE [facility] Last Admin: 10/05/22 16:17 Dose: 2.5 each Documented By: SUSIE Divalproex Sodium (Divalproex Sodium Sprinkles 125 Mg ) 250 mg PO TID [facility] Last Admin: 10/05/22 14:26 Dose: 250 mg Documented By: THAO Escitalopram Oxalate (Escitalopram Oxalate 10 Mg Tablet) 10 mg PO DAILY [facility] Last Admin: 10/05/22 09:04 Dose: 10 mg Documented By: THAO Fluticasone/Vilanterol (Fluticasone/Vilanterol 100/25 Blst.W.Dev) 1 puff INHALE RDAILY [facility] Last Admin: 10/05/22 08:33 Dose: 1 puff Documented By: JOE Heparin Sodium (Porcine) (Heparin Sodium,Porcine 5,000 Unit/Ml Vial) 5,000 unit SUBCUT Q12H [facility] Last Admin: 10/05/22 05:48 Dose: 5,000 unit Documented By: SARAI Doxycycline Hyclate 100 mg/ (Sodium Chloride) 250 mls @ 166.67 mls/hr IV Q12H [facility] Last Admin: 10/05/22 14:26 Dose: 166.67 mls/hr Documented By: THAO Lactulose (Lactulose 20 Gm/30 Ml Solution) 30 gm PO BID [facility] Last Admin: 10/05/22 09:03 Dose: 30 gm Documented By: THAO Magnesium Hydroxide (Milk Of Magnesia 30 Ml Oral.Susp) 30 ml PO DAILY PRN PRN Reason: Constipation Memantine (Memantine Hcl 5 Mg Tablet) 5 mg PO DAILY [facility] Last Admin: 10/05/22 09:04 Dose: 5 mg Documented By: THAO Methylprednisolone Sodium Succinate (Methylprednisolone Sod Succ 125 Mg/2 Ml Vial) 60 mg IVPUSH Q12H [facility] Last Admin: 10/05/22 14:40 Dose: 60 mg Documented By: THAO Omeprazole (Omeprazole 20 Mg Capsule.Dr) 20 mg PO DAILY@0630 [facility] Last Admin: 10/05/22 05:48 Dose: 20 mg Documented By: SARAI Risperidone (Risperidone 1 Mg Tablet) 1 mg PO BID [facility] Last Admin: 10/05/22 09:04 Dose: 1 mg Documented By: THAO Sodium Chloride (0.9 % Sodium Chloride Flush 3 Ml Syringe) 3 ml IVFLUSH QSHIFT [facility] Last Admin: 10/05/22 09:03 Dose: 3 ml Documented By: THAO Tiotropium [place] (Tiotropium [place] 18 Mcg Cap.W.Dev) 1 puff INHALE RDAILY [facility] Last Admin: 10/05/22 08:33 Dose: 1 puff Documented By: JOE Trazodone HCl (Trazodone Hcl 100 Mg Tablet) 100 mg PO BEDTIME [facility] Last Admin: 10/04/22 21:03 Dose: 100 mg Documented By: SARAI Labs 10/05/22 06:50 10/05/22 06:50 Labs: Laboratory Results - last 24 hr 10/05/22 10/05/22 10/05/22 06:50 06:50 06:50 MCV 86.7 MCH 28.4 MCHC 32.7 RDW 14.0 Plt Count 251 MPV 11.1 Immature Gran % (Auto) 1.1 H Neut % (Auto) 89.2 H Lymph % (Auto) 3.7 L [place] % (Auto) 5.8 Eos % (Auto) 0.1 Baso % (Auto) 0.1 Lymph # (Auto) 0.6 L [place] # (Auto) 0.9 Eos # (Auto) 0.0 Baso # (Auto) 0.0 Abs Immat Gran (auto) 0.17 H Absolute Neuts (auto) 13.6 H Absolute Nucleated RBC 0.000 Nucleated RBC % (auto) 0.0 Anion Gap 12 Estim Creat Clear Calc 78.3 Estimated GFR > 60 Fasting Glucose 139 H Calcium 8.1 L Total Bilirubin 0.4 AST 9 ALT 8 Alkaline Phosphatase 48 Ammonia 51 Total Protein 4.8 L Albumin 3.0 L Assessment and Plan (1) Acute respiratory failure with hypoxia: Status: Acute (2) COPD (chronic obstructive pulmonary disease): Status: Acute (3) Dementia: Status: Acute Plan hospital day #7 67 year-old female with history of unspecified dementia, depression, and COPD admitted for acute hypoxemic respiratory failure trasnsferred to hospitalist service from Psychiatry for further management of acute hypoxic respiratory failure; likely secondary to recent COVID-19 infection in backdrop of COPD/interstitial lung disease # acute hypoxic respiratory failure- following COVID-19 diagnosed 09/19 - wean steroids + O2 - d/c isolation precautions # COPD exacerbation acute - doxycycline d#2, steroids as above, neb treatments, continue triple controller inhaler -Solu-Medrol 125 mg IV push x1 additional dose...q6h dosing # unspecified dementia with behavioral disturbance and depression - continue memantine, buspirone, valproate, escitalopram, risperidone, trazodone - will need to return to [facility] eventually # VTE ppx: LMWH # dispo: plan return to [facility] In my clinical judgment, the patient requires continued inpatient hospitalization for the following reasons: hypoxia, psychiatry hold Time Spent With Patient Time: Total time managing care of this patient today ___35_ minutes. Quality Stroke Does the patient have a stroke diagnosis?: No VTE Prior VTE?: No VTE Risk Level:: Medical - moderate - high VTE Device Contraindication: Treatment Not Indicated VTE Drug Contraindication: N/A - Med Ordered
[2022-10-05] MEDS: Atorvastatin Calcium 10 MG TABLET PO (22:04)
[2022-10-05] MEDS: Doxycycline Monohydrate 100 MG CAPSULE PO (22:04)
[2022-10-05] MEDS: traZODone HCL 100 MG TABLET PO (22:04)
[2022-10-06] VITALS (7 sets, daily range): BP systolic 125–153; BP diastolic 63–76; PULSE 41–79; RESP 18–20; TEMP 36.6–37.1; O2SAT 90–98
[2022-10-06] MEDS: Heparin Sodium,Porcine 5,000 UNIT/ML VIAL 5000 UNIT SUBCUT ×2 (06:30→16:16)
[2022-10-06] MEDS: Omeprazole 20 MG CAPSULE.DR PO (06:30)
[2022-10-06 07:50] LABS: Hematocrit 37.9 % (37.0-47.0); Hemoglobin 12.2 g/dl (12.0-16.0); Mean Corpuscular HGB Conc 32.2 g/dl (31.0-35.0); Mean Corpuscular Volume 90.2 fL (80.0-98.0); Mean Platelet Volume 11.4 fL (9.4-12.3); Platelet Count 221 X10*3/uL (160-400); Red Cell Distribution Width 14.2 % (11.0-16.0); White Blood Count 8.5 X10*3/uL (4.8-10.8)
[2022-10-06 07:58] LABS: Anion Gap 11 (12-20); Blood Urea Nitrogen 18 mg/dL (9-16); Carbon Dioxide 32 mmol/L (22-29); Chloride 106 mmol/L (96-108); Creatinine Clr Calc Pharmacy 76.9; Estimated Glomerular Filt Rate > 60; Glucose Random 88 mg/dL (60-115); Potassium 3.5 mmol/L (3.3-5.1); Sodium 145 mmol/L (135-145)
[2022-10-06] MEDS: risperiDONE 1 MG TABLET PO ×2 (08:41→20:19)
[2022-10-06] MEDS: predniSONE 20 MG TABLET 40 MG PO ×2 (08:42→16:16)
[2022-10-06] MEDS: busPIRone HCl 10 MG TABLET PO ×2 (08:42→20:19)
[2022-10-06] MEDS: Escitalopram Oxalate 10 MG TABLET PO (08:42)
[2022-10-06] MEDS: Memantine HCl 5 MG TABLET PO (08:42)
[2022-10-06] MEDS: Divalproex Sodium Sprinkles 125 MG CAP.DR.SPR 250 MG PO ×2 (08:42→20:19)
[2022-10-06] MEDS: Doxycycline Monohydrate 100 MG CAPSULE PO ×2 (09:01→20:19)
[2022-10-06] MEDS: Fluticasone/Vilanterol 100/25 BLST.W.DEV 1 PUFF INHALE (11:21)
--- NOTE | 2022-10-06 13:53 | P.PNIM_ITS ---
Subjective Subjective Date of Service: 10/06/22 Interval History: off O2 unable to obtain ROS due to mental status agitated yesterday, refused IV Review of Systems Review of Systems: Yes Unobtainable due to mental status Physical Exam Vital Signs: Vital Signs: Last Vital Signs Temp 98.1 F 10/06/22 11:04 Pulse 67 10/06/22 11:24 Resp 20 10/06/22 11:24 BP 153/63 H 10/06/22 11:04 Pulse Ox 92 10/06/22 11:04 O2 Del Method 10/06/22 11:04 O2 Flow Rate 2 10/06/22 07:35 BMI result Body Mass Index 20.5 Gen: in no acute distress HEENT: sclera anicteric, moist mucus membranes Neck: supple Lungs: dimimished air entr Heart: regular rate and rhythm, no murmurs Abd: soft, non-tender, non-distended Ext: no edema Skin: warm/well-perfused Neuro: alert, unable to assess orientation Psych: imparied insight Objective Data Active Medications Acetaminophen (Acetaminophen 325 Mg Tablet) 650 mg PO Q6H PRN PRN Reason: Headache/Pain Mild Scale (1-3) Last Admin: 10/04/22 08:12 Dose: 650 mg Documented By: DES Al Hydroxide/Mg Hydroxide (Magnesium Hydrox/Alum Hydrox 30 Ml Oral.Susp) 30 ml PO Q6H PRN PRN Reason: Heartburn/Nausea Albuterol Sulfate (Albuterol Sulfate 90 Mcg 8 Gm Inhaler) 1 puff INHALE RQ4H PRN PRN Reason: Dyspnea Atorvastatin Calcium (Atorvastatin Calcium 10 Mg Tablet) 10 mg PO BEDTIME [facility] Last Admin: 10/05/22 22:04 Dose: 10 mg Documented By: DALY Buspirone HCl (Buspirone Hcl 10 Mg Tablet) 10 mg PO BID [facility] Last Admin: 10/06/22 08:42 Dose: 10 mg Documented By: VICKIE-ALESSIO Divalproex Sodium (Divalproex Sodium Sprinkles 125 Mg ) 250 mg PO TID [facility] Last Admin: 10/06/22 08:42 Dose: 250 mg Documented By: VICKIE-ALESSIO Doxycycline Monohydrate (Doxycycline Monohydrate 100 Mg Capsule) 100 mg PO Q12H [facility] Last Admin: 10/06/22 09:01 Dose: 100 mg Documented By: DELL Escitalopram Oxalate (Escitalopram Oxalate 10 Mg Tablet) 10 mg PO DAILY [facility] Last Admin: 10/06/22 08:42 Dose: 10 mg Documented By: DELL Fluticasone/Vilanterol (Fluticasone/Vilanterol 100/25 Blst.W.Dev) 1 puff INHALE RDAILY [facility] Last Admin: 10/06/22 11:21 Dose: 1 puff Documented By: KIMBERLY Heparin Sodium (Porcine) (Heparin Sodium,Porcine 5,000 Unit/Ml Vial) 5,000 unit SUBCUT Q12H [facility] Last Admin: 10/06/22 06:30 Dose: 5,000 unit Documented By: LI Lactulose (Lactulose 20 Gm/30 Ml Solution) 30 gm PO BID [facility] Last Admin: 10/06/22 09:01 Dose: Not Given Documented By: DELL Non-Admin Reason: Patient Refused Magnesium Hydroxide (Milk Of Magnesia 30 Ml Oral.Susp) 30 ml PO DAILY PRN PRN Reason: Constipation Memantine (Memantine Hcl 5 Mg Tablet) 5 mg PO DAILY [facility] Last Admin: 10/06/22 08:42 Dose: 5 mg Documented By: DELL Omeprazole (Omeprazole 20 Mg Capsule.Dr) 20 mg PO DAILY@0630 [facility] Last Admin: 10/06/22 06:30 Dose: 20 mg Documented By: LI Prednisone (Prednisone 20 Mg Tablet) 40 mg PO BIDWM [facility] Last Admin: 10/06/22 08:42 Dose: 40 mg Documented By: DELL Risperidone (Risperidone 1 Mg Tablet) 1 mg PO BID [facility] Last Admin: 10/06/22 08:41 Dose: 1 mg Documented By: DELL Sodium Chloride (0.9 % Sodium Chloride Flush 3 Ml Syringe) 3 ml IVFLUSH QSHIFT [facility] Last Admin: 10/06/22 13:26 Dose: Not Given Documented By: DELL Non-Admin Reason: See Note Tiotropium [place] (Tiotropium [place] 18 Mcg Cap.W.Dev) 1 puff INHALE RDAILY [facility] Last Admin: 10/06/22 11:21 Dose: 1 puff Documented By: HO.BRESNE Trazodone HCl (Trazodone Hcl 100 Mg Tablet) 100 mg PO BEDTIME [facility] Last Admin: 10/05/22 22:04 Dose: 100 mg Documented By: DALY Labs 10/06/22 07:19 10/06/22 07:19 Labs: Laboratory Results - last 24 hr 10/06/22 10/06/22 07:19 07:19 MCV 90.2 MCH 29.0 MCHC 32.2 RDW 14.2 Plt Count 221 MPV 11.4 Absolute Nucleated RBC 0.000 Nucleated RBC % (auto) 0.0 Anion Gap 11 L Estim Creat Clear Calc 76.9 Estimated GFR > 60 Random Glucose 88 Calcium 8.0 L Assessment and Plan (1) Acute respiratory failure with hypoxia: Status: Acute (2) COPD (chronic obstructive pulmonary disease): Status: Acute (3) Dementia: Status: Acute Plan hospital day #8 67 year-old female with history of unspecified dementia, depression, and COPD admitted for acute hypoxemic respiratory failure trasnsferred to hospitalist service from Psychiatry for further management of acute hypoxic respiratory failure; likely secondary to recent COVID-19 infection in backdrop of COPD/interstitial lung disease # acute hypoxic respiratory failure- following COVID-19 diagnosed 09/19 - weaned off O2 - wean steroids- changed to PO prednisone - d/c isolation precautions # COPD exacerbation acute - doxycycline d#3 (PO), steroids as above, continue triple controller inhaler # unspecified dementia with behavioral disturbance and depression - continue memantine, buspirone, valproate, escitalopram, risperidone, trazodone - will need to return to [facility] and now she is medically cleared # VTE ppx: LMWH # dispo: plan return to [facility] In my clinical judgment, the patient requires continued inpatient hospitalization for the following reasons: hypoxia, psychiatry hold Time Spent With Patient Time: Total time managing care of this patient today __25__ minutes. Quality Stroke Does the patient have a stroke diagnosis?: No VTE Prior VTE?: No VTE Risk Level:: Medical - moderate - high VTE Device Contraindication: Treatment Not Indicated VTE Drug Contraindication: N/A - Med Ordered
--- NOTE | 2022-10-06 15:23 | P.CDIC_ITS ---
CDI Concurrent Query Documentation Clarification: PHYSICIAN'S DOCUMENTATION REQUEST Date of Query: 10/06/22 1524 Patient Name: Nicki Woodruff Admit Date: 09/29/22 Dear Doctor, A review of the medical record indicates additional documentation may be needed. Please review below and update the documentation accordingly. Clinical Indicators: Is there a diagnosis that correlates with the findings below: Risk Factors/Clinical Indicators/Treatments POA/RESOLVED/TREAT/RULE OUT Per provider progress notes: She has also been more encephalopathic from baseline, no longer getting out of bed and walking and refusing p.o. Remains confused agitated somnolent but arousable. Per RN shifts assessments: Patient confused and disoriented to place, time, and situation Other risk factors: Patient admitted for acute hypoxemic respiratory failure Based on the above, could you clarify in the Progress Notes which, if any of the following, is the most likely etiology of the confusion/altered mental status? * Encephalopathy - indicate type such as metabolic, toxic, etc. * Other etiology (please specify) * Unable to determine Use of terms such as suspected, likely, concern for, or probable (associated with a specific diagnosis that is being evaluated, monitored, or treated as if it exists) are acceptable and can be coded in the inpatient setting, when documented at the time of discharge. Thank you, Shagufta Vicente MS, RN, CCRN Extension: [phone] Please use your independent medical judgment in providing your response. THIS QUERY IS PART OF THE PERMANENT MEDICAL RECORD Provider Response: Other Other Diagnosis: unable as of yet to determine
--- NOTE | 2022-10-06 17:39 | MHC.CARE ---
Pt was seen by CARE team and did not meet criteria for inpatient level of care currently. She was referred to case management.
[2022-10-06] MEDS: Lactulose 20 GM/30 ML SOLUTION 30 GM PO (20:19)
[2022-10-06] MEDS: Atorvastatin Calcium 10 MG TABLET PO (20:19)
[2022-10-06] MEDS: traZODone HCL 100 MG TABLET PO (20:19)
--- NOTE | 2022-10-07 | ECG_ITS ---
Test Reason : bradycardia Blood Pressure : / mmHG Vent. Rate : 044 BPM Atrial Rate : 044 BPM P-R Int : 140 ms QRS Dur : 084 ms QT Int : 450 ms P-R-T Axes : 063 057 050 degrees QTc Int : 384 ms Marked sinus bradycardia Abnormal ECG When compared with ECG of 11-SEP-2022 12:13, No significant change was found Referred By: Tuyet Saleem Electronically Signed By:DILIP ROACH MD
[2022-10-07 03:48] VITALS: BP 137/63; PULSE 49; RESP 18; TEMP 37; O2SAT 94
[2022-10-07] MEDS: OLANZapine 5 MG TABLET PO (04:31)
[2022-10-07] MEDS: Omeprazole 20 MG CAPSULE.DR PO (04:31)
[2022-10-07] MEDS: Heparin Sodium,Porcine 5,000 UNIT/ML VIAL 5000 UNIT SUBCUT ×2 (04:37→16:38)
[2022-10-07 07:17] VITALS: BP 140/65; PULSE 41; RESP 20; TEMP 37; O2SAT 95
--- NOTE | 2022-10-07 07:52 | PC.RT ---
went to see pt for resp treatment. pt is lethargic but arousable, unable to do inhalers and her HR is [address] Stiven ghotra and RN aware as well
[2022-10-07] MEDS: Doxycycline Monohydrate 100 MG CAPSULE PO ×2 (08:29→20:36)
[2022-10-07] MEDS: Lactulose 20 GM/30 ML SOLUTION 30 GM PO ×2 (08:29→20:34)
[2022-10-07] MEDS: predniSONE 20 MG TABLET 40 MG PO (08:29)
[2022-10-07] MEDS: busPIRone HCl 10 MG TABLET PO ×2 (08:30→20:34)
[2022-10-07] MEDS: Escitalopram Oxalate 10 MG TABLET PO (08:30)
[2022-10-07] MEDS: Divalproex Sodium Sprinkles 125 MG CAP.DR.SPR 250 MG PO ×3 (08:30→20:31)
[2022-10-07 09:17] LABS: Anion Gap 8 (12-20); Blood Urea Nitrogen 23 mg/dL (9-16); Calcium 8.4 mg/dL (8.4-10.2); Carbon Dioxide 37 mmol/L (22-29); Chloride 105 mmol/L (96-108); Creatinine Clr Calc Pharmacy 62.2; Estimated Glomerular Filt Rate > 60; Glucose Random 101 mg/dL (60-115); Magnesium 2.1 mg/dL (1.6-2.6); Potassium 3.3 mmol/L (3.3-5.1); Sodium 147 mmol/L (135-145)
--- NOTE | 2022-10-07 10:28 | HO.PM.IMPN ---
Subjective Subjective Date of Service: 10/07/22 Interval History: bradycardic unable to obtain ROS due to mental status Review of Systems Review of Systems: Yes Unobtainable due to mental condition Physical Exam Vital Signs: Vital Signs: Last Vital Signs Temp 98.6 F 10/07/22 07:17 Pulse 41 L 10/07/22 07:17 Resp 20 10/07/22 07:17 BP 140/65 H 10/07/22 07:17 Pulse Ox 95 10/07/22 07:17 O2 Del Method 10/07/22 07:17 O2 Flow Rate 2 10/07/22 07:17 BMI result Body Mass Index 20.5 Gen: in no acute distress HEENT: sclera anicteric, moist mucus membranes Neck: supple Lungs: dimimished air entry Heart: bradycardic, no murmurs Abd: soft, non-tender, non-distended Ext: no edema Skin: warm/well-perfused Neuro: alert, unable to assess orientation Psych: imparied insight Objective Data Active Medications Acetaminophen (Acetaminophen 325 Mg Tablet) 650 mg PO Q6H PRN PRN Reason: Headache/Pain Mild Scale (1-3) Last Admin: 10/04/22 08:12 Dose: 650 mg Documented By: DES Al Hydroxide/Mg Hydroxide (Magnesium Hydrox/Alum Hydrox 30 Ml Oral.Susp) 30 ml PO Q6H PRN PRN Reason: Heartburn/Nausea Albuterol Sulfate (Albuterol Sulfate 90 Mcg 8 Gm Inhaler) 1 puff INHALE RQ4H PRN PRN Reason: Dyspnea Atorvastatin Calcium (Atorvastatin Calcium 10 Mg Tablet) 10 mg PO BEDTIME [facility] Last Admin: 10/06/22 20:19 Dose: 10 mg Documented By: DALY Buspirone HCl (Buspirone Hcl 10 Mg Tablet) 10 mg PO BID [facility] [place] Last Admin: 10/07/22 08:30 Dose: 10 mg Documented By: MIKE Divalproex Sodium (Divalproex Sodium Sprinkles 125 Mg ) 250 mg PO TID [facility] [place] Last Admin: 10/07/22 08:30 Dose: 250 mg Documented By: MIKE Doxycycline Monohydrate (Doxycycline Monohydrate 100 Mg Capsule) 100 mg PO Q12H [facility] [place] Last Admin: 10/07/22 08:29 Dose: 100 mg Documented By: MIKE Escitalopram Oxalate (Escitalopram Oxalate 10 Mg Tablet) 10 mg PO DAILY [facility] [place] Last Admin: 10/07/22 08:30 Dose: 10 mg Documented By: MIKE Fluticasone/Vilanterol (Fluticasone/Vilanterol 100/25 Blst.W.Dev) 1 puff INHALE RDAILY [facility] [place] Last Admin: 10/07/22 07:50 Dose: Not Given Documented By: EDUARDO Non-Admin Reason: pt lethargic Heparin Sodium (Porcine) (Heparin Sodium,Porcine 5,000 Unit/Ml Vial) 5,000 unit SUBCUT Q12H [facility] [place] Last Admin: 10/07/22 04:37 Dose: 5,000 unit Documented By: FOREIGN Lactulose (Lactulose 20 Gm/30 Ml Solution) 30 gm PO BID [facility] [place] Last Admin: 10/07/22 08:29 Dose: 30 gm Documented By: MIKE Magnesium Hydroxide (Milk Of Magnesia 30 Ml Oral.Susp) 30 ml PO DAILY PRN PRN Reason: Constipation Omeprazole (Omeprazole 20 Mg Capsule.Dr) 20 mg PO DAILY@0630 [facility] [place] Last Admin: 10/07/22 04:31 Dose: 20 mg Documented By: FOREIGN Prednisone (Prednisone 20 Mg Tablet) 40 mg PO BIDWM [facility] [place] Last Admin: 10/07/22 08:29 Dose: 40 mg Documented By: MIKE Sodium Chloride (0.9 % Sodium Chloride Flush 3 Ml Syringe) 3 ml IVFLUSH QSHIFT [facility] [place] Last Admin: 10/07/22 08:30 Dose: Not Given Documented By: MIKE Non-Admin Reason: No Access Tiotropium [place] (Tiotropium [place] 18 Mcg Cap.W.Dev) 1 puff INHALE RDAILY [facility] [place] Last Admin: 10/07/22 07:50 Dose: Not Given Documented By: EDUARDO Non-Admin Reason: pt lethargic Labs 10/06/22 07:19 10/07/22 08:54 Labs: Laboratory Results - last 24 hr 10/07/22 08:54 Anion Gap 8 L Estim Creat Clear Calc 62.2 Estimated GFR > 60 Random Glucose 101 Calcium 8.4 Magnesium 2.1 Assessment and Plan (1) Acute respiratory failure with hypoxia: Status: Acute (2) COPD (chronic obstructive pulmonary disease): Status: Acute (3) Dementia: Status: Acute Plan day #9 67 year-old female with history of unspecified dementia, depression, and COPD admitted for acute hypoxemic respiratory failure trasnsferred to hospitalist service from Psychiatry for further management of acute hypoxic respiratory failure; likely secondary to recent COVID-19 infection in backdrop of COPD/interstitial lung disease # sinus bradycardia - marked, ?med effect. will d/c trazodone, risperidone, and memantine for now and consult Cardiology + Psych # acute hypoxic respiratory failure- following COVID-19 diagnosed 09/19 - weaned off O2 - wean steroids- changed to PO prednisone- taper - d/c isolation precautions # COPD exacerbation acute - doxycycline d#4 (PO), steroids as above, continue triple controller inhaler # unspecified dementia with behavioral disturbance and depression - continue valproate, escitalopram, buspirone; other meds d/c'ed due to bradycardia # VTE ppx: LMWH # dispo: SNF placement, does not need psychiatry per CARE team In my clinical judgment, the patient requires continued inpatient hospitalization for the following reasons: bradycardia, safe disposition Time Spent With Patient Time: Total time managing care of this patient today _35___ minutes. Quality Stroke Does the patient have a stroke diagnosis?: No VTE Prior VTE?: No VTE Risk Level:: Medical - moderate - high VTE Device Contraindication: Treatment Not Indicated VTE Drug Contraindication: N/A - Med Ordered
[2022-10-07 11:20] VITALS: BP 136/63; PULSE 50; RESP 20; TEMP 37.1; O2SAT 95
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
--- NOTE | 2022-10-07 12:11 | P.CDIC_ITS ---
CDI Concurrent Query Documentation Clarification: PHYSICIAN'S DOCUMENTATION REQUEST Date of Query: 10/07/22 1211 Patient Name: Nicki Woodruff Admit Date: 09/29/22 Dear Doctor, A review of the medical record indicates additional documentation may be needed. Please review below and update the documentation accordingly. Clinical Indicators: Is there a diagnosis that correlates with the findings below: Risk Factors/Clinical Indicators/Treatments BMI: 20.5 Height: 5ft 4in Weight: 54.2kg Other indicators: -Nutrition consult ordered on admission but patient never seen -Patient with decreased PO intake, only consuming 25% or less of meals If possible, please provide an associated diagnosis related to the abnormal BMI, such as: Malnutrition: * Mild * Moderate * Severe BMI: * Underweight * Weight loss * Cachexia * Anorexia Or: * BMI is not significant * Other (please specify) * Unable to determine Use of terms such as suspected, likely, concern for, or probable (associated with a specific diagnosis that is being evaluated, monitored, or treated as if it exists) are acceptable and can be coded in the inpatient setting, when documented at the time of discharge. Thank you, Shagufta Vicente MS, RN, CCRN Extension: [phone] Please use your independent medical judgment in providing your response. THIS QUERY IS PART OF THE PERMANENT MEDICAL RECORD Provider Response: Other Other Diagnosis: BMI is not significant
[2022-10-07 14:57] VITALS: BP 119/56; PULSE 56; RESP 20; O2SAT 90
[2022-10-07 19:34] VITALS: BP 140/93; PULSE 88; RESP 20; TEMP 36.9; O2SAT 91
[2022-10-07] MEDS: Atorvastatin Calcium 10 MG TABLET PO (20:31)
[2022-10-08] VITALS: BP 161/77; PULSE 49; RESP 18; TEMP 36.8; O2SAT 93
[2022-10-08 03:45] VITALS: BP 150/76; PULSE 56; RESP 18; TEMP 36.2; O2SAT 92
[2022-10-08 08:00] VITALS: BP 120/55; PULSE 48; RESP 20; TEMP 36.4; O2SAT 88
[2022-10-08 08:10] LABS: VBG Base Excess 12.1 mmol/L; VBG HCO3 37 mmol/L (22-26); VBG pCO2 48 mmHg; VBG pH 7.49 (7.32-7.43); VBG pO2 37 mmHg
[2022-10-08 08:19] LABS: Anion Gap 11 (12-20); Blood Urea Nitrogen 22 mg/dL (9-16); Carbon Dioxide 34 mmol/L (22-29); Chloride 104 mmol/L (96-108); Creatinine Clr Calc Pharmacy 64.9; Estimated Glomerular Filt Rate > 60; Glucose Random 83 mg/dL (60-115); Potassium 3.2 mmol/L (3.3-5.1); Sodium 146 mmol/L (135-145)
[2022-10-08] MEDS: Divalproex Sodium Sprinkles 125 MG CAP.DR.SPR 250 MG PO ×3 (10:53→20:03)
[2022-10-08] MEDS: Doxycycline Monohydrate 100 MG CAPSULE PO ×2 (10:53→20:03)
[2022-10-08] MEDS: predniSONE 20 MG TABLET 40 MG PO (10:53)
[2022-10-08] MEDS: 0.9 % Sodium Chloride Flush 3 ML SYRINGE IVFLUSH ×3 (10:54→20:04)
[2022-10-08] MEDS: Escitalopram Oxalate 10 MG TABLET PO (10:54)
[2022-10-08] MEDS: Lactulose 20 GM/30 ML SOLUTION 30 GM PO ×2 (10:54→20:03)
[2022-10-08] MEDS: busPIRone HCl 10 MG TABLET PO ×2 (10:54→20:03)
[2022-10-08 11:22] VITALS: BP 101/54; PULSE 63; RESP 14; TEMP 37.1; O2SAT 89
[2022-10-08 11:35] LABS: Venous Blood Gas Refer to POC result
--- NOTE | 2022-10-08 12:10 | HO.PM.IMPN ---
Subjective Subjective Date of Service: 10/08/22 Interval History: more awake and HR improved to 60s with discontinuing risperidone, trazodone, and memantine denies dyspnea denies chest pain denies fver Review of Systems Review of Systems: Yes all other systems are reviewed and are negative Physical Exam Vital Signs: Vital Signs: Last Vital Signs Temp 98.7 F 10/08/22 11:22 Pulse 63 10/08/22 11:22 Resp 14 10/08/22 11:22 BP 101/54 L 10/08/22 11:22 Pulse Ox 89 L 10/08/22 11:22 O2 Del Method 10/08/22 11:22 O2 Flow Rate 1 10/07/22 14:57 BMI result Body Mass Index 20.5 Gen: in no acute distress HEENT: sclera anicteric, moist mucus membranes Neck: supple Lungs: clear bilaterally Heart: RRR no murmurs Abd: soft, non-tender, non-distended Ext: no edema Skin: warm/well-perfused Neuro: alert, no focal findings Psych: appropriate affect Objective Data Active Medications Acetaminophen (Acetaminophen 325 Mg Tablet) 650 mg PO Q6H PRN PRN Reason: Headache/Pain Mild Scale (1-3) Last Admin: 10/04/22 08:12 Dose: 650 mg Documented By: DES Al Hydroxide/Mg Hydroxide (Magnesium Hydrox/Alum Hydrox 30 Ml Oral.Susp) 30 ml PO Q6H PRN PRN Reason: Heartburn/Nausea Albuterol Sulfate (Albuterol Sulfate 90 Mcg 8 Gm Inhaler) 1 puff INHALE RQ4H PRN PRN Reason: Dyspnea Atorvastatin Calcium (Atorvastatin Calcium 10 Mg Tablet) 10 mg PO BEDTIME [facility] Last Admin: 10/07/22 20:31 Dose: 10 mg Documented By: KERRI Buspirone HCl (Buspirone Hcl 10 Mg Tablet) 10 mg PO BID [facility] Last Admin: 10/08/22 10:54 Dose: 10 mg Documented By: SNEHAL Divalproex Sodium (Divalproex Sodium Sprinkles 125 Mg ) 250 mg PO TID [facility] Last Admin: 10/08/22 10:53 Dose: 250 mg Documented By: SNEHAL Doxycycline Monohydrate (Doxycycline Monohydrate 100 Mg Capsule) 100 mg PO Q12H [facility] Last Admin: 10/08/22 10:53 Dose: 100 mg Documented By: SNEHAL Escitalopram Oxalate (Escitalopram Oxalate 10 Mg Tablet) 10 mg PO DAILY [facility] Last Admin: 10/08/22 10:54 Dose: 10 mg Documented By: SNEHAL Fluticasone/Vilanterol (Fluticasone/Vilanterol 100/25 Blst.W.Dev) 1 puff INHALE RDAILY [facility] Last Admin: 10/08/22 08:00 Dose: Not Given Documented By: TORRI Non-Admin Reason: Patient Refused Heparin Sodium (Porcine) (Heparin Sodium,Porcine 5,000 Unit/Ml Vial) 5,000 unit SUBCUT Q12H [facility] Last Admin: 10/08/22 05:29 Dose: Not Given Documented By: KERRI Non-Admin Reason: Patient Refused Dextrose (D5w) 1,000 mls @ 50 mls/hr IVCONT .Q20H [facility] Stop: 10/09/22 08:14 Lactulose (Lactulose 20 Gm/30 Ml Solution) 30 gm PO BID [facility] Last Admin: 10/08/22 10:54 Dose: 30 gm Documented By: SNEHAL Magnesium Hydroxide (Milk Of Magnesia 30 Ml Oral.Susp) 30 ml PO DAILY PRN PRN Reason: Constipation Omeprazole (Omeprazole 20 Mg Capsule.Dr) 20 mg PO DAILY@0630 [facility] Last Admin: 10/08/22 05:47 Dose: Not Given Documented By: KERRI Non-Admin Reason: Patient Refused Potassium Chloride (Potassium Chloride Packet 20 Meq Packet) 40 meq PO BID [facility] Stop: 10/08/22 21:01 Prednisone (Prednisone 20 Mg Tablet) 40 mg PO DAILY [facility] Stop: 10/09/22 23:59 Last Admin: 10/08/22 10:53 Dose: 40 mg Documented By: SNEHAL Prednisone (Prednisone 10 Mg Tablet) 30 mg PO DAILY [facility] Stop: 10/11/22 09:01 Prednisone (Prednisone 20 Mg Tablet) 20 mg PO DAILY [facility] Stop: 10/13/22 09:01 Prednisone (Prednisone 10 Mg Tablet) 10 mg PO DAILY [facility] Stop: 10/15/22 09:01 Sodium Chloride (0.9 % Sodium Chloride Flush 3 Ml Syringe) 3 ml IVFLUSH QSHIFT [facility] Last Admin: 10/08/22 10:54 Dose: 3 ml Documented By: SNEHAL Tiotropium [place] (Tiotropium [place] 18 Mcg Cap.W.Dev) 1 puff INHALE RDAILY [facility] Last Admin: 10/08/22 08:00 Dose: Not Given Documented By: TORRI Non-Admin Reason: Patient Refused Labs 10/06/22 07:19 10/08/22 08:00 Labs: Laboratory Results - last 24 hr 10/08/22 10/08/22 08:00 08:04 VBG pH 7.49 H VBG pCO2 48 VBG pO2 37 VBG HCO3 37 H VBG O2 Saturation 58.0 VBG Base Excess 12.1 Anion Gap 11 L Estim Creat Clear Calc 64.9 Estimated GFR > 60 Random Glucose 83 Calcium 8.0 L Assessment and Plan (1) Acute respiratory failure with hypoxia: Status: Acute (2) COPD (chronic obstructive pulmonary disease): Status: Acute (3) Dementia: Status: Acute Plan day #10 67 year-old female with history of unspecified dementia, depression, and COPD admitted for acute hypoxemic respiratory failure transferred to hospitalist service from Psychiatry for further management of acute hypoxic respiratory failure; likely secondary to recent COVID-19 infection in backdrop of COPD/interstitial lung disease # sinus bradycardia - improved with d/c'ing trazodone, risperidone, and memantine. hold off on Cardiology consultation for now as long as HR improving. # acute hypoxic respiratory failure- following COVID-19 diagnosed 09/19 - weaned off O2 - wean steroids- changed to PO prednisone- taper over next 8d - d/c'ed isolation precautions # hypoNa - give free water IV and encourage PO, recheck BMP in AM # hypoK - replete, recheck BMP in AM # COPD exacerbation acute - doxycycline d#4/5 (PO), steroids as above, continue triple controller inhaler # unspecified dementia with behavioral disturbance and depression - continue valproate, escitalopram, buspirone; other meds d/c'ed due to bradycardia; consult psychiatry re medication regimen # VTE ppx: LMWH # dispo: TBD, CM consultation, does not need psychiatry per CARE team In my clinical judgment, the patient requires continued inpatient hospitalization for the following reasons: safe disposition Time Spent With Patient Time: Total time managing care of this patient today _40___ minutes. Quality Stroke Does the patient have a stroke diagnosis?: No VTE Prior VTE?: No VTE Risk Level:: Medical - moderate - high VTE Device Contraindication: Treatment Not Indicated VTE Drug Contraindication: N/A - Med Ordered
[2022-10-08] MEDS: Potassium Chloride Packet 20 MEQ PACKET 40 MEQ PO ×2 (13:30→20:14)
[2022-10-08] MEDS: Dextrose 5 % 1,000 ML 50 ML IVCONT (13:44)
--- NOTE | 2022-10-08 15:11 | MHC.CM.PN ---
JEANNE, NURSE FROM [facility], CALLED AND PROVIDED UPDATE.
[2022-10-08 15:12] VITALS: BP 111/53; PULSE 62; RESP 20; TEMP 37.6; O2SAT 90
[2022-10-08] MEDS: Heparin Sodium,Porcine 5,000 UNIT/ML VIAL 5000 UNIT SUBCUT (17:58)
[2022-10-08 19:27] VITALS: BP 101/78; PULSE 80; RESP 20; TEMP 36.7; O2SAT 90
[2022-10-08] MEDS: Atorvastatin Calcium 10 MG TABLET PO (20:03)
[2022-10-09] VITALS (7 sets, daily range): BP systolic 132–154; BP diastolic 57–74; PULSE 48–80; RESP 12–20; TEMP 36.1–37.5; O2SAT 91–98
[2022-10-09] MEDS: Heparin Sodium,Porcine 5,000 UNIT/ML VIAL 5000 UNIT SUBCUT ×2 (05:54→17:54)
[2022-10-09] MEDS: Omeprazole 20 MG CAPSULE.DR PO (05:54)
[2022-10-09] MEDS: Lactulose 20 GM/30 ML SOLUTION 30 GM PO ×2 (08:31→21:24)
[2022-10-09] MEDS: Divalproex Sodium Sprinkles 125 MG CAP.DR.SPR 250 MG PO ×3 (08:31→21:27)
[2022-10-09] MEDS: predniSONE 20 MG TABLET 40 MG PO (08:32)
[2022-10-09] MEDS: busPIRone HCl 10 MG TABLET PO ×2 (08:32→21:24)
[2022-10-09] MEDS: Escitalopram Oxalate 10 MG TABLET PO (08:33)
[2022-10-09] MEDS: 0.9 % Sodium Chloride Flush 3 ML SYRINGE IVFLUSH ×2 (08:37→15:15)
[2022-10-09 08:45] LABS: Anion Gap 16 (12-20); Blood Urea Nitrogen 12 mg/dL (9-16); Calcium 8.7 mg/dL (8.4-10.2); Carbon Dioxide 29 mmol/L (22-29); Chloride 103 mmol/L (96-108); Creatinine Clr Calc Pharmacy 72.1; Estimated Glomerular Filt Rate > 60; Glucose Random 76 mg/dL (60-115); Potassium 3.7 mmol/L (3.3-5.1); Sodium 144 mmol/L (135-145)
[2022-10-09] MEDS: Doxycycline Monohydrate 100 MG CAPSULE PO ×2 (11:49→21:24)
--- NOTE | 2022-10-09 15:23 | HO.PM.IMPN ---
Subjective Subjective Date of Service: 10/09/22 Interval History: Seen in follow up for COPD exacerbation, hypoxia Interval history: No complaints Review of Systems Review of Systems: Yes all other systems are reviewed and are negative Physical Exam Vital Signs: Vital Signs: Last Vital Signs Temp 96.9 F 10/09/22 14:57 Pulse 60 10/09/22 14:57 Resp 20 10/09/22 14:57 BP 154/66 H 10/09/22 14:57 Pulse Ox 91 L 10/09/22 14:57 O2 Del Method 10/09/22 14:57 O2 Flow Rate 1 10/07/22 14:57 BMI result Body Mass Index 20.5 Constitutional - Awake and Alert, No apparent distress Eyes - PERRLA, EOMI Cardiovascular - S1S2, RRR, No edema Respiratory - Normal lung expansion, Normal respiratory effort, No respiratory distress, CTA bilaterally Gastrointestinal - NT / ND; +BS; No rebound or guarding Extremities - no calf tenderness bilaterally, no swelling Skin - Warm/Dry Neurological - Alert, disoriented. No focal deficits Psychological - Appropriate affect Objective Data Active Medications Acetaminophen (Acetaminophen 325 Mg Tablet) 650 mg PO Q6H PRN PRN Reason: Headache/Pain Mild Scale (1-3) Last Admin: 10/04/22 08:12 Dose: 650 mg Documented By: DES Al Hydroxide/Mg Hydroxide (Magnesium Hydrox/Alum Hydrox 30 Ml Oral.Susp) 30 ml PO Q6H PRN PRN Reason: Heartburn/Nausea Albuterol Sulfate (Albuterol Sulfate 90 Mcg 8 Gm Inhaler) 1 puff INHALE RQ4H PRN PRN Reason: Dyspnea Atorvastatin Calcium (Atorvastatin Calcium 10 Mg Tablet) 10 mg PO BEDTIME [facility] Last Admin: 10/08/22 20:03 Dose: 10 mg Documented By: JEMMA Buspirone HCl (Buspirone Hcl 10 Mg Tablet) 10 mg PO BID [facility] Last Admin: 10/09/22 08:32 Dose: 10 mg Documented By: SNEHAL Divalproex Sodium (Divalproex Sodium Sprinkles 125 Mg ) 250 mg PO TID [facility] Last Admin: 10/09/22 15:15 Dose: 250 mg Documented By: LINDA Doxycycline Monohydrate (Doxycycline Monohydrate 100 Mg Capsule) 100 mg PO Q12H [facility] Stop: 10/10/22 10:01 Last Admin: 10/09/22 11:49 Dose: 100 mg Documented By: SNEHAL Escitalopram Oxalate (Escitalopram Oxalate 10 Mg Tablet) 10 mg PO DAILY [facility] Last Admin: 10/09/22 08:33 Dose: 10 mg Documented By: SNEHAL Fluticasone/Vilanterol (Fluticasone/Vilanterol 100/25 Blst.W.Dev) 1 puff INHALE RDAILY [facility] Last Admin: 10/09/22 08:35 Dose: Not Given [facility]ed [facility] Reason: Physician Approved Heparin Sodium (Porcine) (Heparin Sodium,Porcine 5,000 Unit/Ml Vial) 5,000 unit SUBCUT Q12H [facility] [place] Last Admin: 10/09/22 05:54 Dose: 5,000 unit Documented By: JEMMA Lactulose (Lactulose 20 Gm/30 Ml Solution) 30 gm PO BID [facility] Last Admin: 10/09/22 08:31 Dose: 30 gm Documented By: SNEHAL Magnesium Hydroxide (Milk Of Magnesia 30 Ml Oral.Susp) 30 ml PO DAILY PRN PRN Reason: Constipation Omeprazole (Omeprazole 20 Mg Capsule.Dr) 20 mg PO DAILY@0630 [facility] Last Admin: 10/09/22 05:54 Dose: 20 mg Documented By: JEMMA Prednisone (Prednisone 20 Mg Tablet) 40 mg PO DAILY [facility] Stop: 10/09/22 23:59 Last Admin: 10/09/22 08:32 Dose: 40 mg Documented By: SNEHAL Prednisone (Prednisone 10 Mg Tablet) 30 mg PO DAILY [facility] Stop: 10/11/22 09:01 Prednisone (Prednisone 20 Mg Tablet) 20 mg PO DAILY [facility] Stop: 10/13/22 09:01 Prednisone (Prednisone 10 Mg Tablet) 10 mg PO DAILY [facility] Stop: 10/15/22 09:01 Sodium Chloride (0.9 % Sodium Chloride Flush 3 Ml Syringe) 3 ml IVFLUSH QSHIFT [facility] Last Admin: 10/09/22 15:15 Dose: 3 ml Documented By: LINDA Tiotropium [place] (Tiotropium [place] 18 Mcg Cap.W.Dev) 1 puff INHALE RDAILY [facility] Last Admin: 10/09/22 08:35 Dose: Not Given Documented By: CHARLES Non-Admin Reason: Patient Refused Labs 10/06/22 07:19 10/09/22 08:03 Labs: Laboratory Results - last 24 hr 10/09/22 08:03 Anion Gap 16 Estim Creat Clear Calc 72.1 Estimated GFR > 60 Random Glucose 76 Calcium 8.7 D Assessment and Plan (1) Acute respiratory failure with hypoxia: Status: Acute (2) COPD (chronic obstructive pulmonary disease): Status: Acute (3) Dementia: Status: Acute Plan day #10 67 year-old female with history of unspecified dementia, depression, and COPD admitted for acute hypoxemic respiratory failure transferred to hospitalist service from Psychiatry for further management of acute hypoxic respiratory failure; likely secondary to recent COVID-19 infection in backdrop of COPD/interstitial lung disease # sinus bradycardia - improved with d/c'ing trazodone, risperidone, and memantine. -hold off on Cardiology consultation for now as long as HR improving. # acute hypoxic respiratory failure- following COVID-19 diagnosed 09/19 - weaned off O2 - wean steroids- changed to PO prednisone- taper over next 8d - d/c'ed isolation precautions # hypoNa -give free water IV and encourage PO -resolved -follow bmp # hypoK - replete, recheck BMP in AM # COPD exacerbation acute - doxycycline d#12/11 (PO), steroids as above, continue triple controller inhaler # unspecified dementia with behavioral disturbance and depression - continue valproate, escitalopram, buspirone; other meds d/c'ed due to bradycardia; consult psychiatry re medication regimen # VTE ppx: LMWH # dispo: TBD, CM consultation, does not need psychiatry per CARE team In my clinical judgment, the patient requires continued inpatient hospitalization for the following reasons: safe disposition Time Spent With Patient Time: Total time managing care of this patient today ____ minutes. Quality Stroke Does the patient have a stroke diagnosis?: No VTE Prior VTE?: No VTE Risk Level:: Medical - moderate - high VTE Device Contraindication: Treatment Not Indicated VTE Drug Contraindication: N/A - Med Ordered
--- NOTE | 2022-10-09 16:14 | MHC.CM.PN ---
DP PT eval rec LTC vs 01/03 care. Clinical information has been sent to facilities. No bed offers at this time.
[2022-10-09] MEDS: LORazepam 2 MG/ML VIAL 1 MG IVPUSH (17:49)
[2022-10-09] MEDS: Atorvastatin Calcium 10 MG TABLET PO (21:24)
[2022-10-10 04:00] VITALS: TEMP 36.8
[2022-10-10] MEDS: 0.9 % Sodium Chloride Flush 3 ML SYRINGE IVFLUSH ×4 (05:34→21:05)
[2022-10-10] MEDS: OLANZapine 10 MG VIAL IM (05:34)
[2022-10-10] MEDS: Heparin Sodium,Porcine 5,000 UNIT/ML VIAL 5000 UNIT SUBCUT ×2 (05:35→17:16)
[2022-10-10] MEDS: Omeprazole 20 MG CAPSULE.DR PO (05:36)
[2022-10-10 07:35] LABS: Anion Gap 12 (12-20); Blood Urea Nitrogen 12 mg/dL (9-16); Calcium 8.1 mg/dL (8.4-10.2); Carbon Dioxide 33 mmol/L (22-29); Chloride 105 mmol/L (96-108); Creatinine Clr Calc Pharmacy 72.1; Estimated Glomerular Filt Rate > 60; Glucose Random 81 mg/dL (60-115); Potassium 3.4 mmol/L (3.3-5.1); Sodium 147 mmol/L (135-145)
[2022-10-10 07:49] VITALS: BP 135/69; PULSE 67; RESP 16; TEMP 36.7; O2SAT 95
--- NOTE | 2022-10-10 07:49 | PC.RT ---
MDI's not given this am, pt lethargic but arousable, unable to participate. Mouth rinse post presents an aspiration hazard.LS dim, spo2 96% on ra. RN aware.
[2022-10-10] MEDS: Doxycycline Monohydrate 100 MG CAPSULE PO (09:25)
[2022-10-10] MEDS: Lactulose 20 GM/30 ML SOLUTION 30 GM PO ×2 (09:25→21:04)
[2022-10-10] MEDS: busPIRone HCl 10 MG TABLET PO ×2 (09:25→21:04)
[2022-10-10] MEDS: Escitalopram Oxalate 10 MG TABLET PO (09:25)
[2022-10-10] MEDS: predniSONE 10 MG TABLET 30 MG PO (09:25)
[2022-10-10] MEDS: Divalproex Sodium Sprinkles 125 MG CAP.DR.SPR 250 MG PO ×3 (09:25→21:04)
--- NOTE | 2022-10-10 11:23 | HO.PM.IMPN ---
Subjective Subjective Date of Service: 10/10/22 Interval History: Seen in follow up for COPD exacerbation, hypoxia Interval history: No complaints Review of Systems Review of Systems: Yes all other systems are reviewed and are negative Physical Exam Vital Signs: Vital Signs: Last Vital Signs Temp 98.0 F 10/10/22 07:49 Pulse 67 10/10/22 07:49 Resp 16 10/10/22 07:49 BP 135/69 10/10/22 07:49 Pulse Ox 95 10/10/22 07:49 O2 Del Method 10/10/22 07:49 O2 Flow Rate 1 10/07/22 14:57 BMI result Body Mass Index 20.5 Constitutional - Awake and Alert, No apparent distress Eyes - PERRLA, EOMI Cardiovascular - S1S2, RRR, No edema Respiratory - Normal lung expansion, Normal respiratory effort, No respiratory distress, CTA bilaterally Gastrointestinal - NT / ND; +BS; No rebound or guarding Extremities - no calf tenderness bilaterally, no swelling Skin - Warm/Dry Neurological - Alert, disoriented. No focal deficits Psychological - Appropriate affect Objective Data Active Medications Acetaminophen (Acetaminophen 325 Mg Tablet) 650 mg PO Q6H PRN PRN Reason: Headache/Pain Mild Scale (1-3) Last Admin: 10/04/22 08:12 Dose: 650 mg Documented By: DES Al Hydroxide/Mg Hydroxide (Magnesium Hydrox/Alum Hydrox 30 Ml Oral.Susp) 30 ml PO Q6H PRN PRN Reason: Heartburn/Nausea Albuterol Sulfate (Albuterol Sulfate 90 Mcg 8 Gm Inhaler) 1 puff INHALE RQ4H PRN PRN Reason: Dyspnea Atorvastatin Calcium (Atorvastatin Calcium 10 Mg Tablet) 10 mg PO BEDTIME [facility] Last Admin: 10/09/22 21:24 Dose: 10 mg Documented By: SARAI Buspirone HCl (Buspirone Hcl 10 Mg Tablet) 10 mg PO BID [facility] Last Admin: 10/10/22 09:25 Dose: 10 mg Documented By: MENDOZA Divalproex Sodium (Divalproex Sodium Sprinkles 125 Mg ) 250 mg PO TID [facility] Last Admin: 10/10/22 09:25 Dose: 250 mg Documented By: MENDOZA Escitalopram Oxalate (Escitalopram Oxalate 10 Mg Tablet) 10 mg PO DAILY [facility] Last Admin: 10/10/22 09:25 Dose: 10 mg Documented By: MENDOZA Fluticasone/Vilanterol (Fluticasone/Vilanterol 100/25 Blst.W.Dev) 1 puff INHALE RDAILY [facility] Last Admin: 10/10/22 07:47 Dose: Not Given Documented By: SUSIE Non-Admin Reason: Pt is not able to participate. Heparin Sodium (Porcine) (Heparin Sodium,Porcine 5,000 Unit/Ml Vial) 5,000 unit SUBCUT Q12H [facility] Last Admin: 10/10/22 05:35 Dose: 5,000 unit Documented By: SARAI Lactulose (Lactulose 20 Gm/30 Ml Solution) 30 gm PO BID [facility] Last Admin: 10/10/22 09:25 Dose: 30 gm Documented By: MENDOZA Magnesium Hydroxide (Milk Of Magnesia 30 Ml Oral.Susp) 30 ml PO DAILY PRN PRN Reason: Constipation Omeprazole (Omeprazole 20 Mg Capsule.Dr) 20 mg PO DAILY@0630 [facility] Last Admin: 10/10/22 05:36 Dose: 20 mg Documented By: SARAI Prednisone (Prednisone 10 Mg Tablet) 30 mg PO DAILY [facility] Stop: 10/11/22 09:01 Last Admin: 10/10/22 09:25 Dose: 30 mg Documented By: MENDOZA Prednisone (Prednisone 20 Mg Tablet) 20 mg PO DAILY [facility] Stop: 10/13/22 09:01 Prednisone (Prednisone 10 Mg Tablet) 10 mg PO DAILY [facility] Stop: 10/15/22 09:01 Sodium Chloride (0.9 % Sodium Chloride Flush 3 Ml Syringe) 3 ml IVFLUSH QSHIFT [facility] Last Admin: 10/10/22 09:25 Dose: 3 ml Documented By: MENDOZA Tiotropium [place] (Tiotropium [place] 18 Mcg Cap.W.Dev) 1 puff INHALE RDAILY [facility] Last Admin: 10/10/22 07:48 Dose: Not Given Documented By: SUSIE Non-Admin Reason: Pt is not able to participate. Labs 10/06/22 07:19 10/10/22 06:42 Labs: Laboratory Results - last 24 hr 10/10/22 06:42 Anion Gap 12 Estim Creat Clear Calc 72.1 Estimated GFR > 60 Random Glucose 81 Calcium 8.1 L D Assessment and Plan (1) Acute respiratory failure with hypoxia: Status: Acute (2) COPD (chronic obstructive pulmonary disease): Status: Acute (3) Dementia: Status: Acute Plan day #11 67 year-old female with history of unspecified dementia, depression, and COPD admitted for acute hypoxemic respiratory failure transferred to hospitalist service from Psychiatry for further management of acute hypoxic respiratory failure; likely secondary to recent COVID-19 infection in backdrop of COPD/interstitial lung disease # sinus bradycardia - improved with d/c'ing trazodone, risperidone, and memantine. -hold off on Cardiology consultation for now as long as HR improving. # acute hypoxic respiratory failure- following COVID-19 diagnosed 09/19 - weaned off O2 - wean steroids- changed to PO prednisone- taper over next 8d - d/c'ed isolation precautions # hypoNa -give free water IV and encourage PO -resolved -follow bmp # hypoK - replete, recheck BMP in AM # COPD exacerbation acute - doxycycline d#5/5 (PO), steroids as above, continue triple controller inhaler # unspecified dementia with behavioral disturbance and depression - continue valproate, escitalopram, buspirone; other meds d/c'ed due to bradycardia # VTE ppx: LMWH # dispo: TBD, CM consultation, does not need psychiatry per CARE team In my clinical judgment, the patient requires continued inpatient hospitalization for the following reasons: safe disposition Time Spent With Patient Time: Total time managing care of this patient today ____ minutes. Quality Stroke Does the patient have a stroke diagnosis?: No VTE Prior VTE?: No VTE Risk Level:: Medical - moderate - high VTE Device Contraindication: Treatment Not Indicated VTE Drug Contraindication: N/A - Med Ordered
[2022-10-10 12:00] VITALS: BP 132/74; PULSE 75; RESP 18; TEMP 36.6; O2SAT 97
[2022-10-10 16:00] VITALS: BP 140/80; PULSE 68; RESP 19; TEMP 36.3; O2SAT 97
[2022-10-10] MEDS: OLANZapine 10 MG VIAL 5 MG IM (18:13)
[2022-10-10] MEDS: Atorvastatin Calcium 10 MG TABLET PO (21:04)
[2022-10-10 23:03] VITALS: BP 139/65; PULSE 54; RESP 18; TEMP 36.8; O2SAT 92
[2022-10-11 03:34] VITALS: BP 120/58; PULSE 40; RESP 14; TEMP 36.6; O2SAT 91
[2022-10-11 07:25] VITALS: BP 137/68; PULSE 62; RESP 18; TEMP 37.1; O2SAT 94
[2022-10-11] MEDS: busPIRone HCl 10 MG TABLET PO ×2 (07:53→21:03)
[2022-10-11] MEDS: Divalproex Sodium Sprinkles 125 MG CAP.DR.SPR 250 MG PO ×3 (07:53→21:04)
[2022-10-11] MEDS: predniSONE 10 MG TABLET 30 MG PO (07:53)
[2022-10-11] MEDS: 0.9 % Sodium Chloride Flush 3 ML SYRINGE IVFLUSH ×3 (07:54→23:20)
[2022-10-11] MEDS: Lactulose 20 GM/30 ML SOLUTION 30 GM PO (07:55)
[2022-10-11] MEDS: Escitalopram Oxalate 10 MG TABLET PO (07:55)
[2022-10-11] MEDS: Fluticasone/Vilanterol 100/25 BLST.W.DEV 1 PUFF INHALE (08:01)
[2022-10-11 08:02] VITALS: PULSE 62; RESP 16; O2SAT 94
[2022-10-11 08:47] LABS: Anion Gap 12 (12-20); Blood Urea Nitrogen 13 mg/dL (9-16); Calcium 8.1 mg/dL (8.4-10.2); Carbon Dioxide 31 mmol/L (22-29); Chloride 105 mmol/L (96-108); Creatinine Clr Calc Pharmacy 74.5; Estimated Glomerular Filt Rate > 60; Glucose Random 72 mg/dL (60-115); Potassium 3.2 mmol/L (3.3-5.1); Sodium 145 mmol/L (135-145)
--- NOTE | 2022-10-11 11:18 | HO.PM.IMPN ---
Subjective Subjective Date of Service: 10/11/22 Interval History: Seen in follow up for COPD exacerbation, hypoxia Interval history: Pt aggitated last night, hitting staff . Unable to be directed, required zyprexa. No complaints this am, pleasant sitting up in bed eating breakfast Review of Systems Review of Systems: Yes all other systems are reviewed and are negative Physical Exam Vital Signs: Vital Signs: Last Vital Signs Temp 98.7 F 10/11/22 07:25 Pulse 62 10/11/22 08:02 Resp 16 10/11/22 08:02 BP 137/68 10/11/22 07:25 Pulse Ox 94 10/11/22 07:25 O2 Del Method 10/11/22 07:25 O2 Flow Rate 1 10/07/22 14:57 BMI result Body Mass Index 20.5 Constitutional - Awake and Alert, No apparent distress Eyes - PERRLA, EOMI Cardiovascular - S1S2, RRR, No edema Respiratory - Normal lung expansion, Normal respiratory effort, No respiratory distress, CTA bilaterally Gastrointestinal - NT / ND; +BS; No rebound or guarding Extremities - no calf tenderness bilaterally, no swelling Skin - Warm/Dry Neurological - Alert, disoriented. No focal deficits Psychological - Appropriate affect Objective Data Active Medications Acetaminophen (Acetaminophen 325 Mg Tablet) 650 mg PO Q6H PRN PRN Reason: Headache/Pain Mild Scale (1-3) Last Admin: 10/04/22 08:12 Dose: 650 mg Documented By: DES Al Hydroxide/Mg Hydroxide (Magnesium Hydrox/Alum Hydrox 30 Ml Oral.Susp) 30 ml PO Q6H PRN PRN Reason: Heartburn/Nausea Albuterol Sulfate (Albuterol Sulfate 90 Mcg 8 Gm Inhaler) 1 puff INHALE RQ4H PRN PRN Reason: Dyspnea Atorvastatin Calcium (Atorvastatin Calcium 10 Mg Tablet) 10 mg PO BEDTIME [facility] Last Admin: 10/10/22 21:04 Dose: 10 mg Documented By: TARA Buspirone HCl (Buspirone Hcl 10 Mg Tablet) 10 mg PO BID [facility] Last Admin: 10/11/22 07:53 Dose: 10 mg Documented By: MENDOZA Divalproex Sodium (Divalproex Sodium Sprinkles 125 Mg ) 250 mg PO TID [facility] Last Admin: 10/11/22 07:53 Dose: 250 mg Documented By: MENDOZA Escitalopram Oxalate (Escitalopram Oxalate 10 Mg Tablet) 10 mg PO DAILY [facility] Last Admin: 10/11/22 07:55 Dose: 10 mg Documented By: MENDOZA Fluticasone/Vilanterol (Fluticasone/Vilanterol 100/25 Blst.W.Dev) 1 puff INHALE RDAILY [facility] Last Admin: 10/11/22 08:01 Dose: 1 puff Documented By: SUSIE Heparin Sodium (Porcine) (Heparin Sodium,Porcine 5,000 Unit/Ml Vial) 5,000 unit SUBCUT Q12H [facility] Last Admin: 10/11/22 06:35 Dose: Not Given Documented By: SOPHIE Non-Admin Reason: Patient Refused Lactulose (Lactulose 20 Gm/30 Ml Solution) 30 gm PO BID [facility] Last Admin: 10/11/22 07:55 Dose: 30 gm Documented By: MENDOZA Magnesium Hydroxide (Milk Of Magnesia 30 Ml Oral.Susp) 30 ml PO DAILY PRN PRN Reason: Constipation Omeprazole (Omeprazole 20 Mg Capsule.Dr) 20 mg PO DAILY@0630 [facility] Last Admin: 10/11/22 06:39 Dose: Not Given Documented By: SOPHIE Non-Admin Reason: Patient Refused Potassium Chloride (Potassium Chloride Packet 20 Meq Packet) 40 meq PO ONCE ONE Stop: 10/11/22 11:15 Prednisone (Prednisone 20 Mg Tablet) 20 mg PO DAILY [facility] Stop: 10/13/22 09:01 Prednisone (Prednisone 10 Mg Tablet) 10 mg PO DAILY [facility] Stop: 10/15/22 09:01 Sodium Chloride (0.9 % Sodium Chloride Flush 3 Ml Syringe) 3 ml IVFLUSH QSHIFT [facility] Last Admin: 10/11/22 07:54 Dose: 3 ml Documented By: MENDOZA Tiotropium [place] (Tiotropium [place] 18 Mcg Cap.W.Dev) 1 puff INHALE RDAILY [facility] Last Admin: 10/11/22 08:01 Dose: 1 puff Documented By: SUSIE Labs 10/06/22 07:19 10/11/22 08:10 Labs: Laboratory Results - last 24 hr 10/11/22 08:10 Anion Gap 12 Estim Creat Clear Calc 74.5 Estimated GFR > 60 Random Glucose 72 Calcium 8.1 L Assessment and Plan (1) Acute respiratory failure with hypoxia: Status: Acute (2) COPD (chronic obstructive pulmonary disease): Status: Acute (3) Dementia: Status: Acute Plan day #12 67 year-old female with history of unspecified dementia, depression, and COPD admitted for acute hypoxemic respiratory failure transferred to hospitalist service from Psychiatry for further management of acute hypoxic respiratory failure; likely secondary to recent COVID-19 infection in backdrop of COPD/interstitial lung disease # sinus bradycardia - improved with d/c'ing trazodone, risperidone, and memantine. -hold off on Cardiology consultation for now as long as HR improving. # acute hypoxic respiratory failure- following COVID-19 diagnosed 09/19 - weaned off O2 - wean steroids- changed to PO prednisone- taper over next 8d - d/c'ed isolation precautions # hypoNa -give free water IV and encourage PO -resolved -follow bmp # hypoK - replete, recheck BMP in AM # COPD exacerbation acute - doxycycline d#/ (PO), steroids as above, continue triple controller inhaler # unspecified dementia with behavioral disturbance and depression - continue valproate, escitalopram, buspirone; other meds d/c'ed due to bradycardia -Sundowning with aggression last night. Psych eval # VTE ppx: LMWH # dispo: TBLazaro, CM consultation, does not need psychiatry per CARE team In my clinical judgment, the patient requires continued inpatient hospitalization for the following reasons: safe disposition Time Spent With Patient Time: Total time managing care of this patient today ____ minutes. Quality Stroke Does the patient have a stroke diagnosis?: No VTE Prior VTE?: No VTE Risk Level:: Medical - moderate - high VTE Device Contraindication: Treatment Not Indicated VTE Drug Contraindication: N/A - Med Ordered
[2022-10-11] MEDS: Potassium Chloride Packet 20 MEQ PACKET 40 MEQ PO (11:44)
[2022-10-11 11:59] VITALS: BP 125/59; PULSE 67; RESP 16; TEMP 36.6; O2SAT 95
[2022-10-11] MEDS: Heparin Sodium,Porcine 5,000 UNIT/ML VIAL 5000 UNIT SUBCUT (17:19)
[2022-10-11 20:00] VITALS: BP 137/64; PULSE 54; RESP 18; TEMP 36.3; O2SAT 93
[2022-10-11] MEDS: risperiDONE 1 MG TABLET PO (21:03)
[2022-10-11] MEDS: Atorvastatin Calcium 10 MG TABLET PO (21:04)
--- NOTE | 2022-10-11 21:30 | PC.NURSE ---
Pt very restless, confused, agitated and verbally aggressive. She keeps trying to get OOB and difficult to redirect. Pt will not keep her surveillance monitor on and keeps removing it despite education/redirection. Sched risperidone given. [employer] aware.
[2022-10-12] VITALS: BP 122/58; PULSE 60; RESP 20; TEMP 36.4; O2SAT 94
--- NOTE | 2022-10-12 06:10 | PC.NURSE ---
Pt w/ small incont urine output. BS for 159. Will report to oncoming RN.
[2022-10-12 07:56] VITALS: BP 110/59; PULSE 50; RESP 21; TEMP 36.8; O2SAT 92
[2022-10-12] MEDS: Fluticasone/Vilanterol 100/25 BLST.W.DEV 1 PUFF INHALE (08:13)
[2022-10-12 08:15] VITALS: PULSE 49; RESP 18; O2SAT 92
[2022-10-12] MEDS: Lactulose 20 GM/30 ML SOLUTION 30 GM PO ×2 (09:53→22:01)
[2022-10-12] MEDS: busPIRone HCl 10 MG TABLET PO ×2 (09:53→22:00)
[2022-10-12] MEDS: predniSONE 20 MG TABLET PO (09:53)
[2022-10-12] MEDS: Escitalopram Oxalate 10 MG TABLET PO (09:53)
[2022-10-12] MEDS: risperiDONE 1 MG TABLET PO ×2 (09:53→16:55)
[2022-10-12] MEDS: Divalproex Sodium Sprinkles 125 MG CAP.DR.SPR 250 MG PO ×3 (09:53→22:00)
--- NOTE | 2022-10-12 10:27 | MHC.CM.PN ---
PT is recommending LTC VS 24/ care. SNF/LTC referrals have been made and updated. There are no SNF bed offers as of yet and CM will continue to follow.
[2022-10-12 11:10] VITALS: BP 105/53; PULSE 67; RESP 20; TEMP 37.1; O2SAT 93
--- NOTE | 2022-10-12 13:59 | HO.PM.IMPN ---
Subjective Subjective Date of Service: 10/12/22 Interval History: remains confused but pleasant during day. Staff notes some Review of Systems unable to obtain Physical Exam Vital Signs: Vital Signs: Last Vital Signs Temp 98.7 F 10/12/22 11:10 Pulse 67 10/12/22 11:10 Resp 20 10/12/22 11:10 BP 105/53 L 10/12/22 11:10 Pulse Ox 93 10/12/22 11:10 O2 Del Method 10/12/22 11:10 O2 Flow Rate 1 10/07/22 14:57 BMI result Body Mass Index 20.5 Const: Other: awake alert confused Resp: Other: clear to auscultation bilaterally no rales rhonchi or wheezes Cardio: Other: no S4; positive S1-S2; no S3 murmurs rubs or gallops GI: Other: soft nontender nondistended normoactive bowel sounds Extrem: Other: no edema bilaterally Objective Data Active Medications Acetaminophen (Acetaminophen 325 Mg Tablet) 650 mg PO Q6H PRN PRN Reason: Headache/Pain Mild Scale (1-3) Last Admin: 10/04/22 08:12 Dose: 650 mg Documented By: DES Al Hydroxide/Mg Hydroxide (Magnesium Hydrox/Alum Hydrox 30 Ml Oral.Susp) 30 ml PO Q6H PRN PRN Reason: Heartburn/Nausea Albuterol Sulfate (Albuterol Sulfate 90 Mcg 8 Gm Inhaler) 1 puff INHALE RQ4H PRN PRN Reason: Dyspnea Atorvastatin Calcium (Atorvastatin Calcium 10 Mg Tablet) 10 mg PO BEDTIME [facility] Last Admin: 10/11/22 21:04 Dose: 10 mg Documented By: DIONNA Buspirone HCl (Buspirone Hcl 10 Mg Tablet) 10 mg PO BID [facility] Last Admin: 10/12/22 09:53 Dose: 10 mg Documented By: MARGOT Divalproex Sodium (Divalproex Sodium Sprinkles 125 Mg ) 250 mg PO TID [facility] Last Admin: 10/12/22 09:53 Dose: 250 mg Documented By: MARGOT Escitalopram Oxalate (Escitalopram Oxalate 10 Mg Tablet) 10 mg PO DAILY [facility] Last Admin: 10/12/22 09:53 Dose: 10 mg Documented By: MARGOT Fluticasone/Vilanterol (Fluticasone/Vilanterol 100/25 Blst.W.Dev) 1 puff INHALE RDAILY [facility] Last Admin: 10/12/22 08:13 Dose: 1 puff Documented By: MAHSA Heparin Sodium (Porcine) (Heparin Sodium,Porcine 5,000 Unit/Ml Vial) 5,000 unit SUBCUT Q12H [facility] Last Admin: 10/12/22 05:25 Dose: Not Given Documented By: DIONNA Non-Admin Reason: Patient Refused Lactulose (Lactulose 20 Gm/30 Ml Solution) 30 gm PO BID [facility] Last Admin: 10/12/22 09:53 Dose: 30 gm Documented By: MARGOT Magnesium Hydroxide (Milk Of Magnesia 30 Ml Oral.Susp) 30 ml PO DAILY PRN PRN Reason: Constipation Omeprazole (Omeprazole 20 Mg Capsule.Dr) 20 mg PO DAILY@0630 [facility] Last Admin: 10/12/22 05:25 Dose: Not Given Documented By: DIONNA Non-Admin Reason: Patient Refused Prednisone (Prednisone 20 Mg Tablet) 20 mg PO DAILY [facility] Stop: 10/13/22 09:01 Last Admin: 10/12/22 09:53 Dose: 20 mg Documented By: MARGOT Prednisone (Prednisone 10 Mg Tablet) 10 mg PO DAILY [facility] Stop: 10/15/22 09:01 Risperidone (Risperidone 1 Mg Tablet) 1 mg PO BID [facility] Last Admin: 10/12/22 09:53 Dose: 1 mg Documented By: MARGOT Sodium Chloride (0.9 % Sodium Chloride Flush 3 Ml Syringe) 3 ml IVFLUSH QSHIFT [facility] Last Admin: 10/12/22 09:56 Dose: Not Given Documented By: MARGOT Non-Admin Reason: No Access Tiotropium [place] (Tiotropium [place] 18 Mcg Cap.W.Dev) 1 puff INHALE RDAILY [facility] Last Admin: 10/12/22 08:13 Dose: 1 puff Documented By: MAHSA Labs 10/06/22 07:19 10/11/22 08:10 Assessment and Plan (1) Acute respiratory failure with hypoxia: Status: Acute (2) Dementia: Status: Acute Plan 67 year-old female with history of unspecified dementia, depression, and COPD admitted for acute hypoxemic respiratory failure transferred to hospitalist service from Psychiatry for further management of acute hypoxic respiratory failure; likely secondary to recent COVID-19 infection in backdrop of COPD/interstitial lung disease 1.Sinus bradycardia - improved with d/c'ing trazodone, risperidone, and memantine. - will continue to hold blood wheeled add back individually if behavior does not improve 2.Acute hypoxic respiratory failure- following COVID-19 diagnosed 09/19 - weaned off O2 - wean steroids- changed to PO prednisone- taper over next 8d - d/c'ed isolation precautions 3.Hypernatremia - resolved -follow renals/divalent 4.COPD exacerbation acute.. - doxycycline d#5/ (PO), steroids as above, continue triple controller inhaler 5.Unspecified dementia with behavioral disturbance and depression - continue valproate, escitalopram, buspirone -ing with aggression;add seroquel at suppertime and follow response LMWH full code In my clinical judgment, the patient requires continued inpatient hospitalization for the following reasons: safe disposition Time Spent With Patient Time: Total time managing care of this patient today ____ minutes. Quality Stroke Does the patient have a stroke diagnosis?: No VTE Prior VTE?: No VTE Risk Level:: Medical - moderate - high VTE Device Contraindication: Treatment Not Indicated VTE Drug Contraindication: N/A - Med Ordered
[2022-10-12] MEDS: QUEtiapine Fumarate 25 MG TABLET PO (15:41)
--- NOTE | 2022-10-12 16:36 | PM.EVENT ---
Event Note Date of Service: 10/12/22 Event Note: Discussed case on the phone with hospitalist FRANCISCO JAVIER Smart who reports patient seems to get dysregulated starting in the evening time; discussed medication and decided to change Risperdal dosing to 0900 and 1600 to see if giving it earlier in afternoon can help prevent sundowning. Risperdal has low risk for causing bradycardia and reportedly taking it away did not help it to resolve Time Spent With Patient Time: Total time managing care of this patient today ____ minutes.
[2022-10-12] MEDS: Heparin Sodium,Porcine 5,000 UNIT/ML VIAL 5000 UNIT SUBCUT (18:16)
[2022-10-12 22:00] VITALS: BP 147/67; PULSE 63; RESP 18; TEMP 37; O2SAT 96
[2022-10-12] MEDS: Acetaminophen 325 MG TABLET 650 MG PO (22:00)
[2022-10-12] MEDS: Atorvastatin Calcium 10 MG TABLET PO (22:00)
[2022-10-12 23:51] VITALS: BP 143/63; PULSE 65; RESP 14; TEMP 36.6; O2SAT 93
[2022-10-13 04:00] VITALS: BP 156/72; PULSE 52; RESP 16; TEMP 36.8; O2SAT 95
[2022-10-13] MEDS: Omeprazole 20 MG CAPSULE.DR PO (06:07)
[2022-10-13] MEDS: Divalproex Sodium Sprinkles 125 MG CAP.DR.SPR 250 MG PO ×3 (07:46→19:43)
[2022-10-13] MEDS: Escitalopram Oxalate 10 MG TABLET PO (07:46)
[2022-10-13] MEDS: Lactulose 20 GM/30 ML SOLUTION 30 GM PO ×2 (07:46→19:43)
[2022-10-13] MEDS: busPIRone HCl 10 MG TABLET PO ×2 (07:46→19:43)
[2022-10-13] MEDS: predniSONE 20 MG TABLET PO (07:46)
[2022-10-13] MEDS: risperiDONE 1 MG TABLET PO ×2 (07:52→15:59)
[2022-10-13 08:00] VITALS: BP 125/58; PULSE 64; RESP 20; TEMP 36.3; O2SAT 93
[2022-10-13] MEDS: Fluticasone/Vilanterol 100/25 BLST.W.DEV 1 PUFF INHALE (08:07)
[2022-10-13 08:09] VITALS: PULSE 65; RESP 18; O2SAT 92
[2022-10-13 11:53] VITALS: BP 106/59; PULSE 64; RESP 20; TEMP 36.6; O2SAT 92
--- NOTE | 2022-10-13 12:21 | MHC.CM.PN ---
CM has hand faxed a referral to [facility], who does not appear to communicate via [facility]. CM awaits response.
--- NOTE | 2022-10-13 14:31 | P.PNIM_ITS ---
Subjective Subjective Date of Service: 10/13/22 Interval History: behavior has improved however still confused worsen the Review of Systems unable to obtain Physical Exam Vital Signs: Vital Signs: Last Vital Signs Temp 97.9 F 10/13/22 11:53 Pulse 64 10/13/22 11:53 Resp 20 10/13/22 11:53 BP 106/59 L 10/13/22 11:53 Pulse Ox 92 10/13/22 11:53 O2 Del Method 10/13/22 11:53 O2 Flow Rate 1 10/07/22 14:57 BMI result Body Mass Index 20.5 Const: Other: awake alert confused Resp: Other: clear to auscultation bilaterally no rales rhonchi or wheezes Cardio: Other: no S4; positive S1-S2; no S3 murmurs rubs or gallops GI: Other: soft nontender nondistended normoactive bowel sounds Extrem: Other: no edema bilaterally Objective Data Active Medications Acetaminophen (Acetaminophen 325 Mg Tablet) 650 mg PO Q6H PRN PRN Reason: Headache/Pain Mild Scale (1-3) Last Admin: 10/12/22 22:00 Dose: 650 mg Documented By: BEATRICE Al Hydroxide/Mg Hydroxide (Magnesium Hydrox/Alum Hydrox 30 Ml Oral.Susp) 30 ml PO Q6H PRN PRN Reason: Heartburn/Nausea Albuterol Sulfate (Albuterol Sulfate 90 Mcg 8 Gm Inhaler) 1 puff INHALE RQ4H PRN PRN Reason: Dyspnea Atorvastatin Calcium (Atorvastatin Calcium 10 Mg Tablet) 10 mg PO BEDTIME [facility] Last Admin: 10/12/22 22:00 Dose: 10 mg Documented By: BEATRICE Buspirone HCl (Buspirone Hcl 10 Mg Tablet) 10 mg PO BID [facility] Last Admin: 10/13/22 07:46 Dose: 10 mg Documented By: THAO Divalproex Sodium (Divalproex Sodium Sprinkles 125 Mg ) 250 mg PO TID [facility] Last Admin: 10/13/22 07:46 Dose: 250 mg Documented By: THAO Escitalopram Oxalate (Escitalopram Oxalate 10 Mg Tablet) 10 mg PO DAILY [facility] Last Admin: 10/13/22 07:46 Dose: 10 mg Documented By: THAO Fluticasone/Vilanterol (Fluticasone/Vilanterol 100/25 Blst.W.Dev) 1 puff INHALE RDAILY [facility] Last Admin: 10/13/22 08:07 Dose: 1 puff Documented By: CHARLES Heparin Sodium (Porcine) (Heparin Sodium,Porcine 5,000 Unit/Ml Vial) 5,000 unit SUBCUT Q12H [facility] Last Admin: 10/13/22 04:21 Dose: Not Given Documented By: JIM Non-Admin Reason: Patient Refused Lactulose (Lactulose 20 Gm/30 Ml Solution) 30 gm PO BID [facility] Last Admin: 10/13/22 07:46 Dose: 30 gm Documented By: THAO Magnesium Hydroxide (Milk Of Magnesia 30 Ml Oral.Susp) 30 ml PO DAILY PRN PRN Reason: Constipation Omeprazole (Omeprazole 20 Mg Capsule.Dr) 20 mg PO DAILY@0630 [facility] Last Admin: 10/13/22 06:07 Dose: 20 mg Documented By: JIM Prednisone (Prednisone 10 Mg Tablet) 10 mg PO DAILY [facility] Stop: 10/15/22 09:01 Risperidone (Risperidone 1 Mg Tablet) 1 mg PO BID@0900,1600 [facility] Last Admin: 10/13/22 07:52 Dose: 1 mg Documented By: THAO Sodium Chloride (0.9 % Sodium Chloride Flush 3 Ml Syringe) 3 ml IVFLUSH QSHIFT [facility] Last Admin: 10/13/22 07:54 Dose: Not Given Documented By: THAO Non-Admin Reason: No Access Tiotropium [place] (Tiotropium [place] 18 Mcg Cap.W.Dev) 1 puff INHALE RDAILY [facility] Last Admin: 10/13/22 08:08 Dose: 1 puff Documented By: CHARLES Labs 10/06/22 07:19 10/11/22 08:10 Assessment and Plan (1) Bradycardia: Status: Acute (2) Acute respiratory failure with hypoxia: Status: Acute (3) Dementia: Status: Acute Plan 67 year-old female with history of unspecified dementia, depression, and COPD admitted for acute hypoxemic respiratory failure transferred to hospitalist service from Psychiatry for further management of acute hypoxic respiratory failure; likely secondary to recent COVID-19 infection in backdrop of COPD/interstitial lung disease 1.Sinus bradycardia - improved with d/c'ing trazodone, risperidone, and memantine. - will continue to hold;back individually if behavior does not improve - bradycardia was infrequent at best 2.Acute hypoxic respiratory failure- following COVID-19 diagnosed 09/19 - weaned off O2 - wean steroids- changed to PO prednisone- taper over next 8d - d/c'ed isolation precautions 3.Hypernatremia - resolved -follow renals/divalent 4.COPD exacerbation acute.. - doxycycline d#5/5 (PO), steroids as above, continue triple controller inhaler 5.Unspecified dementia with behavioral disturbance and depression - continue valproate, escitalopram, buspirone -Sundowning with aggression;add seroquel at suppertime and follow response LMWH full code In my clinical judgment, the patient requires continued inpatient hospitalization for the following reasons: safe disposition Time Spent With Patient Time: Total time managing care of this patient today ____ minutes. Quality Stroke Does the patient have a stroke diagnosis?: No VTE Prior VTE?: No VTE Risk Level:: Medical - moderate - high VTE Device Contraindication: Treatment Not Indicated VTE Drug Contraindication: N/A - Med Ordered
--- NOTE | 2022-10-13 14:57 | MHC.CM.PN ---
CM returned a call to [facility] RN/Armaan @ [phone] to confirm that LTC placement is the goal/plan.
[2022-10-13 15:05] VITALS: BP 109/51; PULSE 87; RESP 17; TEMP 37.1; O2SAT 97
[2022-10-13] MEDS: Heparin Sodium,Porcine 5,000 UNIT/ML VIAL 5000 UNIT SUBCUT (15:59)
[2022-10-13] MEDS: Atorvastatin Calcium 10 MG TABLET PO (19:43)
[2022-10-13 23:48] VITALS: BP 121/58; PULSE 55; RESP 16; TEMP 36.4; O2SAT 93
[2022-10-14] VITALS (7 sets, daily range): BP systolic 103–139; BP diastolic 51–87; PULSE 55–78; RESP 16–18; TEMP 36.1–37.3; O2SAT 91–96
[2022-10-14] MEDS: Omeprazole 20 MG CAPSULE.DR PO (06:13)
[2022-10-14] MEDS: Heparin Sodium,Porcine 5,000 UNIT/ML VIAL 5000 UNIT SUBCUT ×2 (06:13→16:06)
[2022-10-14] MEDS: predniSONE 10 MG TABLET PO (07:29)
[2022-10-14] MEDS: Divalproex Sodium Sprinkles 125 MG CAP.DR.SPR 250 MG PO ×3 (07:29→20:31)
[2022-10-14] MEDS: risperiDONE 1 MG TABLET PO ×2 (07:29→16:06)
[2022-10-14] MEDS: Escitalopram Oxalate 10 MG TABLET PO (07:29)
[2022-10-14] MEDS: busPIRone HCl 10 MG TABLET PO ×2 (07:29→20:31)
[2022-10-14] MEDS: Fluticasone/Vilanterol 100/25 BLST.W.DEV 1 PUFF INHALE (08:29)
--- NOTE | 2022-10-14 10:38 | MHC.CM.PN ---
Patient is medically cleared for dc to LTC; all SNF referrals have been updated in [facility] and CM has left a message for LAVINIA @ [facility] @ [phone] ext [phone], requesting confirmation that she received the faxed referral yesterday and inquiring if they are able to offer a bed. CM awaits a return call from [facility] LAVINIA.
--- NOTE | 2022-10-14 12:14 | P.PNIM_ITS ---
Subjective Subjective Date of Service: 10/14/22 Interval History: remains alert cooperative but confused during the evening Review of Systems unable to obtain Physical Exam Vital Signs: Vital Signs: Last Vital Signs Temp 97.2 F 10/14/22 11:31 Pulse 78 10/14/22 11:31 Resp 18 10/14/22 11:31 BP 125/87 10/14/22 11:31 Pulse Ox 94 10/14/22 11:31 O2 Del Method 10/14/22 11:31 O2 Flow Rate 1 10/07/22 14:57 BMI result Body Mass Index 20.5 Const: Other: awake alert confused Resp: Other: clear to auscultation bilaterally no rales rhonchi or wheezes Cardio: Other: no S4; positive S1-S2; no S3 murmurs rubs or gallops GI: Other: soft nontender nondistended normoactive bowel sounds Extrem: Other: no edema bilaterally Objective Data Active Medications Acetaminophen (Acetaminophen 325 Mg Tablet) 650 mg PO Q6H PRN PRN Reason: Headache/Pain Mild Scale (1-3) Last Admin: 10/12/22 22:00 Dose: 650 mg Documented By: BEATRICE Al Hydroxide/Mg Hydroxide (Magnesium Hydrox/Alum Hydrox 30 Ml Oral.Susp) 30 ml PO Q6H PRN PRN Reason: Heartburn/Nausea Albuterol Sulfate (Albuterol Sulfate 90 Mcg 8 Gm Inhaler) 1 puff INHALE RQ4H PRN PRN Reason: Dyspnea Atorvastatin Calcium (Atorvastatin Calcium 10 Mg Tablet) 10 mg PO BEDTIME [facility] Last Admin: 10/13/22 19:43 Dose: 10 mg Documented By: GRACIE Buspirone HCl (Buspirone Hcl 10 Mg Tablet) 10 mg PO BID [facility] Last Admin: 10/14/22 07:29 Dose: 10 mg Documented By: THAO Divalproex Sodium (Divalproex Sodium Sprinkles 125 Mg ) 250 mg PO TID [facility] Last Admin: 10/14/22 07:29 Dose: 250 mg Documented By: THAO Escitalopram Oxalate (Escitalopram Oxalate 10 Mg Tablet) 10 mg PO DAILY [facility] Last Admin: 10/14/22 07:29 Dose: 10 mg Documented By: THAO Fluticasone/Vilanterol (Fluticasone/Vilanterol 100/25 Blst.W.Dev) 1 puff INHALE RDAILY [facility] Last Admin: 10/14/22 08:29 Dose: 1 puff Documented By: CHARLES Heparin Sodium (Porcine) (Heparin Sodium,Porcine 5,000 Unit/Ml Vial) 5,000 unit SUBCUT Q12H [facility] Last Admin: 10/14/22 06:13 Dose: 5,000 unit Documented By: GRACIE Lactulose (Lactulose 20 Gm/30 Ml Solution) 30 gm PO BID [facility] Last Admin: 10/14/22 07:37 Dose: Not Given Documented By: THAO Non-Admin Reason: Patient Refused Magnesium Hydroxide (Milk Of Magnesia 30 Ml Oral.Susp) 30 ml PO DAILY PRN PRN Reason: Constipation Omeprazole (Omeprazole 20 Mg Capsule.Dr) 20 mg PO DAILY@0630 [facility] Last Admin: 10/14/22 06:13 Dose: 20 mg Documented By: GRACIE Prednisone (Prednisone 10 Mg Tablet) 10 mg PO DAILY [facility] Stop: 10/15/22 09:01 Last Admin: 10/14/22 07:29 Dose: 10 mg Documented By: THAO Risperidone (Risperidone 1 Mg Tablet) 1 mg PO BID@0900,1600 [facility] Last Admin: 10/14/22 07:29 Dose: 1 mg Documented By: THAO Sodium Chloride (0.9 % Sodium Chloride Flush 3 Ml Syringe) 3 ml IVFLUSH QSHIFT [facility] Last Admin: 10/14/22 07:30 Dose: Not Given Documented By: THAO Non-Admin Reason: No Access Tiotropium [place] (Tiotropium [place] 18 Mcg Cap.W.Dev) 1 puff INHALE RDAILY [facility] Last Admin: 10/14/22 08:29 Dose: 1 puff Documented By: CHARLES Labs 10/06/22 07:19 10/11/22 08:10 Assessment and Plan (1) Bradycardia: Status: Acute (2) Acute respiratory failure with hypoxia: Status: Acute (3) Dementia: Status: Acute Plan 67 year-old female with history of unspecified dementia, depression, and COPD admitted for acute hypoxemic respiratory failure transferred to hospitalist service from Psychiatry for further management of acute hypoxic respiratory failure; likely secondary to recent COVID-19 infection in backdrop of COPD/interstitial lung disease 1.Sinus bradycardia - rhythm strips reviewed; bradycardia and not significant - will add back gabapentin 1st and then trazodone if needed - follow clinically 2.Acute hypoxic respiratory failure- following COVID-19 diagnosed 09/19 - weaned off O2 - DC steroids - d/c'ed isolation precautions 3.Hypernatremia - resolved -follow renals/divalent 4.COPD exacerbation acute.. - doxycycline d#5/5 (PO), steroids as above, continue triple controller inhaler 5.Unspecified dementia with behavioral disturbance and depression - continue valproate, escitalopram, buspirone - add gabapentin t.i.d.; add trazodone if no response to gabapentin LMWH full code In my clinical judgment, the patient requires continued inpatient hospitalization for the following reasons: safe disposition Time Spent With Patient Time: Total time managing care of this patient today ____ minutes. Quality Stroke Does the patient have a stroke diagnosis?: No VTE Prior VTE?: No VTE Risk Level:: Medical - moderate - high VTE Device Contraindication: Treatment Not Indicated VTE Drug Contraindication: N/A - Med Ordered
--- NOTE | 2022-10-14 13:51 | MHC.CLN ---
NUTRITION CONSULT FOR SKIN. HAS STAGE I TO COCCYX. DIET=NDD3. INTAKE APPEARS GOOD, 50-100%. NO NEW NUTRITION INTERVENTIONS.
[2022-10-14] MEDS: Gabapentin 100 MG CAPSULE PO ×2 (14:31→20:31)
[2022-10-14] MEDS: Acetaminophen 325 MG TABLET 650 MG PO (14:31)
[2022-10-14] MEDS: Lactulose 20 GM/30 ML SOLUTION 30 GM PO (20:30)
[2022-10-14] MEDS: Atorvastatin Calcium 10 MG TABLET PO (20:31)
[2022-10-15] VITALS (7 sets, daily range): BP systolic 94–110; BP diastolic 46–72; PULSE 50–75; RESP 16–18; TEMP 36.7–37.4; O2SAT 92–98
[2022-10-15] MEDS: Heparin Sodium,Porcine 5,000 UNIT/ML VIAL 5000 UNIT SUBCUT ×2 (05:59→16:33)
[2022-10-15] MEDS: Omeprazole 20 MG CAPSULE.DR PO (05:59)
[2022-10-15] MEDS: Fluticasone/Vilanterol 100/25 BLST.W.DEV 1 PUFF INHALE (07:53)
[2022-10-15] MEDS: predniSONE 10 MG TABLET PO (08:49)
[2022-10-15] MEDS: risperiDONE 1 MG TABLET PO ×2 (08:49→14:48)
[2022-10-15] MEDS: Gabapentin 100 MG CAPSULE PO ×3 (08:49→20:28)
[2022-10-15] MEDS: Divalproex Sodium Sprinkles 125 MG CAP.DR.SPR 250 MG PO ×3 (08:49→20:27)
[2022-10-15] MEDS: Escitalopram Oxalate 10 MG TABLET PO (08:49)
[2022-10-15] MEDS: busPIRone HCl 10 MG TABLET PO ×2 (08:49→20:28)
[2022-10-15] MEDS: Lactulose 20 GM/30 ML SOLUTION 30 GM PO (08:50)
--- NOTE | 2022-10-15 12:59 | MHC.CM.PN ---
CM returned a call to Sister/HCP/[place] @ [phone], [place] is calling [facility], where Patient was from, to inquire if Patient can return there ([place] has indicated that [facility] a [facility]). [place] indicated that she would let CM know the outcome of her conversation. CM will follow.
--- NOTE | 2022-10-15 14:19 | HO.PM.IMPN ---
Subjective Subjective Date of Service: 10/15/22 Interval History: remains alert cooperative but confused during the evening Review of Systems unable to obtain Physical Exam Vital Signs: Vital Signs: Last Vital Signs Temp 99.3 F 10/15/22 11:08 Pulse 65 10/15/22 11:08 Resp 18 10/15/22 11:08 BP 102/61 10/15/22 11:08 Pulse Ox 95 10/15/22 11:08 O2 Del Method 10/15/22 11:08 O2 Flow Rate 1 10/07/22 14:57 BMI result Body Mass Index 20.5 Const: Other: awake alert confused Resp: Other: clear to auscultation bilaterally no rales rhonchi or wheezes Cardio: Other: no S4; positive S1-S2; no S3 murmurs rubs or gallops GI: Other: soft nontender nondistended normoactive bowel sounds Extrem: Other: no edema bilaterally Objective Data Active Medications Acetaminophen (Acetaminophen 325 Mg Tablet) 650 mg PO Q6H PRN PRN Reason: Headache/Pain Mild Scale (1-3) Last Admin: 10/14/22 14:31 Dose: 650 mg Documented By: THAO Al Hydroxide/Mg Hydroxide (Magnesium Hydrox/Alum Hydrox 30 Ml Oral.Susp) 30 ml PO Q6H PRN PRN Reason: Heartburn/Nausea Albuterol Sulfate (Albuterol Sulfate 90 Mcg 8 Gm Inhaler) 1 puff INHALE RQ4H PRN PRN Reason: Dyspnea Atorvastatin Calcium (Atorvastatin Calcium 10 Mg Tablet) 10 mg PO BEDTIME [facility] Last Admin: 10/14/22 20:31 Dose: 10 mg Documented By: GRACIE Buspirone HCl (Buspirone Hcl 10 Mg Tablet) 10 mg PO BID [facility] Last Admin: 10/15/22 08:49 Dose: 10 mg Documented By: DELL Divalproex Sodium (Divalproex Sodium Sprinkles 125 Mg ) 250 mg PO TID [facility] Last Admin: 10/15/22 08:49 Dose: 250 mg Documented By: DELL Escitalopram Oxalate (Escitalopram Oxalate 10 Mg Tablet) 10 mg PO DAILY [facility] Last Admin: 10/15/22 08:49 Dose: 10 mg Documented By: DELL Fluticasone/Vilanterol (Fluticasone/Vilanterol 100/25 Blst.W.Dev) 1 puff INHALE RDAILY [facility] Last Admin: 10/15/22 07:53 Dose: 1 puff Documented By: SUSIE Gabapentin (Gabapentin 100 Mg Capsule) 100 mg PO TID [facility] Last Admin: 10/15/22 08:49 Dose: 100 mg Documented By: DELL Heparin Sodium (Porcine) (Heparin Sodium,Porcine 5,000 Unit/Ml Vial) 5,000 unit SUBCUT Q12H [facility] Last Admin: 10/15/22 05:59 Dose: 5,000 unit Documented By: GRACIE Lactulose (Lactulose 20 Gm/30 Ml Solution) 30 gm PO BID [facility] Last Admin: 10/15/22 08:50 Dose: 30 gm Documented By: DELL Magnesium Hydroxide (Milk Of Magnesia 30 Ml Oral.Susp) 30 ml PO DAILY PRN PRN Reason: Constipation Omeprazole (Omeprazole 20 Mg Capsule.Dr) 20 mg PO DAILY@0630 [facility] Last Admin: 10/15/22 05:59 Dose: 20 mg Documented By: GRACIE Risperidone (Risperidone 1 Mg Tablet) 1 mg PO BID@0900,1600 [facility] Last Admin: 10/15/22 08:49 Dose: 1 mg Documented By: DELL Sodium Chloride (0.9 % Sodium Chloride Flush 3 Ml Syringe) 3 ml IVFLUSH QSHIFT [facility] Last Admin: 10/15/22 07:05 Dose: Not Given Documented By: DELL Non-Admin Reason: See Note Tiotropium [place] (Tiotropium [place] 18 Mcg Cap.W.Dev) 1 puff INHALE RDAILY [facility] Last Admin: 10/15/22 07:53 Dose: 1 puff Documented By: SUSIE Labs 10/06/22 07:19 10/11/22 08:10 Assessment and Plan (1) Bradycardia: Status: Acute (2) Dementia: Status: Acute Plan 67 year-old female with history of unspecified dementia, depression, and COPD admitted for acute hypoxemic respiratory failure transferred to hospitalist service from Psychiatry for further management of acute hypoxic respiratory failure; likely secondary to recent COVID-19 infection in backdrop of COPD/interstitial lung disease 1.Sinus bradycardia - rhythm strips reviewed; bradycardia and not significant - will add back gabapentin 1st and then trazodone if needed - follow clinically... No bradycardia 2.Acute hypoxic respiratory failure- following COVID-19 diagnosed 09/19 - weaned off O2 - DC steroids - d/c'ed isolation precautions 3.Hypernatremia - resolved -follow renals/divalent 4.COPD exacerbation acute.. - doxycycline d#5/5 (PO), steroids as above, continue triple controller inhaler 5.Unspecified dementia with behavioral disturbance and depression - continue valproate, escitalopram, buspirone - add gabapentin t.i.d.; add trazodone if no response to gabapentin LMWH full code In my clinical judgment, the patient requires continued inpatient hospitalization for the following reasons: safe disposition Time Spent With Patient Time: Total time managing care of this patient today ____ minutes. Quality Stroke Does the patient have a stroke diagnosis?: No VTE Prior VTE?: No VTE Risk Level:: Medical - moderate - high VTE Device Contraindication: Treatment Not Indicated VTE Drug Contraindication: N/A - Med Ordered
[2022-10-15] MEDS: Atorvastatin Calcium 10 MG TABLET PO (20:27)
[2022-10-15] MEDS: 0.9 % Sodium Chloride Flush 3 ML SYRINGE IVFLUSH ×2 (20:34→20:35)
--- NOTE | 2022-10-16 02:03 | PC.NURSE ---
1932 Notifed of low BP manual 92/46; stated keep an eye on it
--- NOTE | 2022-10-16 02:11 | PC.NURSE ---
2035 BP retaken automated 102/64 Left upper arm.
[2022-10-16 04:00] VITALS: BP 122/60; PULSE 54; RESP 18; TEMP 36.8; O2SAT 96
[2022-10-16 07:29] VITALS: BP 96/50; PULSE 56; RESP 12; TEMP 36.6; O2SAT 91
[2022-10-16] MEDS: Fluticasone/Vilanterol 100/25 BLST.W.DEV 1 PUFF INHALE (07:43)
[2022-10-16 07:45] VITALS: PULSE 60; RESP 18; O2SAT 91
--- NOTE | 2022-10-16 08:21 | MHC.CM.PN ---
LTC is the goal; CM has updated all SNF referrals and will continue to follow.
[2022-10-16] MEDS: Lactulose 20 GM/30 ML SOLUTION 30 GM PO (09:14)
[2022-10-16] MEDS: Escitalopram Oxalate 10 MG TABLET PO (09:15)
[2022-10-16] MEDS: Divalproex Sodium Sprinkles 125 MG CAP.DR.SPR 250 MG PO ×3 (09:15→21:17)
[2022-10-16] MEDS: risperiDONE 1 MG TABLET PO ×2 (09:15→15:30)
[2022-10-16] MEDS: busPIRone HCl 10 MG TABLET PO ×2 (09:15→21:17)
[2022-10-16] MEDS: Gabapentin 100 MG CAPSULE PO ×3 (09:15→21:17)
[2022-10-16 11:22] VITALS: BP 101/58; PULSE 68; RESP 12; TEMP 37.1; O2SAT 94
--- NOTE | 2022-10-16 13:39 | P.PNIM_ITS ---
Subjective Subjective Date of Service: 10/16/22 Interval History: remains alert cooperative but confused during the evening Review of Systems unable to obtain Physical Exam Vital Signs: Vital Signs: Last Vital Signs Temp 98.7 F 10/16/22 11:22 Pulse 68 10/16/22 11:22 Resp 12 10/16/22 11:22 BP 101/58 L 10/16/22 11:22 Pulse Ox 94 10/16/22 11:22 O2 Del Method 10/16/22 11:22 O2 Flow Rate 1 10/07/22 14:57 BMI result Body Mass Index 20.5 Const: Other: awake alert confused Resp: Other: clear to auscultation bilaterally no rales rhonchi or wheezes Cardio: Other: no S4; positive S1-S2; no S3 murmurs rubs or gallops GI: Other: soft nontender nondistended normoactive bowel sounds Extrem: Other: no edema bilaterally Objective Data Active Medications Acetaminophen (Acetaminophen 325 Mg Tablet) 650 mg PO Q6H PRN PRN Reason: Headache/Pain Mild Scale (1-3) Last Admin: 10/14/22 14:31 Dose: 650 mg Documented By: THAO Al Hydroxide/Mg Hydroxide (Magnesium Hydrox/Alum Hydrox 30 Ml Oral.Susp) 30 ml PO Q6H PRN PRN Reason: Heartburn/Nausea Albuterol Sulfate (Albuterol Sulfate 90 Mcg 8 Gm Inhaler) 1 puff INHALE RQ4H PRN PRN Reason: Dyspnea Atorvastatin Calcium (Atorvastatin Calcium 10 Mg Tablet) 10 mg PO BEDTIME [facility] Last Admin: 10/15/22 20:27 Dose: 10 mg Documented By: FOREIGN Buspirone HCl (Buspirone Hcl 10 Mg Tablet) 10 mg PO BID [facility] Last Admin: 10/16/22 09:15 Dose: 10 mg Documented By: TARA Divalproex Sodium (Divalproex Sodium Sprinkles 125 Mg ) 250 mg PO TID [facility] Last Admin: 10/16/22 09:15 Dose: 250 mg Documented By: TARA Escitalopram Oxalate (Escitalopram Oxalate 10 Mg Tablet) 10 mg PO DAILY [facility] Last Admin: 10/16/22 09:15 Dose: 10 mg Documented By: TARA Fluticasone/Vilanterol (Fluticasone/Vilanterol 100/25 Blst.W.Dev) 1 puff INHALE RDAILY [facility] Last Admin: 10/16/22 07:43 Dose: 1 puff Documented By: MAHSA Gabapentin (Gabapentin 100 Mg Capsule) 100 mg PO TID [facility] Last Admin: 10/16/22 09:15 Dose: 100 mg Documented By: TARA Heparin Sodium (Porcine) (Heparin Sodium,Porcine 5,000 Unit/Ml Vial) 5,000 unit SUBCUT Q12H [facility] Last Admin: 10/16/22 05:18 Dose: Not Given Documented By: FOREIGN Non-Admin Reason: Patient Refused Lactulose (Lactulose 20 Gm/30 Ml Solution) 30 gm PO BID [facility] Last Admin: 10/16/22 09:14 Dose: 30 gm Documented By: TARA Magnesium Hydroxide (Milk Of Magnesia 30 Ml Oral.Susp) 30 ml PO DAILY PRN PRN Reason: Constipation Omeprazole (Omeprazole 20 Mg Capsule.Dr) 20 mg PO DAILY@0630 [facility] Last Admin: 10/16/22 05:32 Dose: Not Given Documented By: FOREIGN Non-Admin Reason: Patient Refused Risperidone (Risperidone 1 Mg Tablet) 1 mg PO BID@0900,1600 [facility] Last Admin: 10/16/22 09:15 Dose: 1 mg Documented By: TARA Sodium Chloride (0.9 % Sodium Chloride Flush 3 Ml Syringe) 3 ml IVFLUSH QSHIFT [facility] Last Admin: 10/15/22 20:35 Dose: 3 ml Documented By: FOREIGN Tiotropium [place] (Tiotropium [place] 18 Mcg Cap.W.Dev) 1 puff INHALE RDAILY [facility] Last Admin: 10/16/22 07:43 Dose: 1 puff Documented By: MAHSA Labs 10/06/22 07:19 10/11/22 08:10 Assessment and Plan (1) Acute respiratory failure with hypoxia: Status: Acute Plan 67 year-old female with history of unspecified dementia, depression, and COPD admitted for acute hypoxemic respiratory failure transferred to hospitalist service from Psychiatry for further management of acute hypoxic respiratory failure; likely secondary to recent COVID-19 infection in backdrop of COPD/interstitial lung disease 1.Sinus bradycardia - rhythm strips reviewed; bradycardia and not significant - will add back gabapentin 1st and then trazodone if needed - follow clinically... No bradycardia 2.Acute hypoxic respiratory failure- following COVID-19 diagnosed 09/19 - weaned off O2 - 3.Hypernatremia - resolved -follow renals/divalent 4.COPD exacerbation acute.. - doxycycline d#/ (PO), steroids as above, continue triple controller inhaler 5.Unspecified dementia with behavioral disturbance and depression - continue valproate, escitalopram, buspirone - add gabapentin t.i.d.; add trazodone if no response to gabapentin LMWH full code In my clinical judgment, the patient requires continued inpatient hospitalization for the following reasons: safe disposition Time Spent With Patient Time: Total time managing care of this patient today ____ minutes. Quality Stroke Does the patient have a stroke diagnosis?: No VTE Prior VTE?: No VTE Risk Level:: Medical - moderate - high VTE Device Contraindication: Treatment Not Indicated VTE Drug Contraindication: N/A - Med Ordered
[2022-10-16 14:52] VITALS: BP 108/53; PULSE 84; RESP 17; TEMP 37.6; O2SAT 93
--- NOTE | 2022-10-16 16:06 | P.CDIM_ITS ---
PROVIDER RESPONSE TEXT: To clarify, the appropriate diagnosis supported by the clinical indicators: Metabolic QUERY TEXT: PHYSICIAN'S DOCUMENTATION REQUEST Date of Query: 10/13/2022 09:31 AM EST Patient Name: Nicki Woodruff Admit Date: 09/29/2022 Dear Ricardo Aaron, A review of the medical record indicates additional documentation may be needed. Please review below and update the documentation accordingly. Clinical Indicators: Is there a diagnosis that correlates with the findings below: POA/RESOLVED/TREAT/RULE OUT Per provider progress notes: She has also been more encephalopathic from baseline, no longer getting out of bed and walking and refusing p.o. Remains confused agitated somnolent but arousable Per RN shifts assessments: Patient confused and forgetful and disoriented to place, time, and situation Per event note on 10/12: patient seems to get dysregulated Other risk factors: -Patient treated for acute hypoxemic respiratory failure -Patient treated for alkalosis -Patient undergoing medication adjustments currently with provider suspision for possible adverse davide ction -Encephalopathy not ruled out yet per Dr. Saleem Based on the above, could you clarify in the Progress Notes which, if any of the following, is the mo st likely etiology of the confusion/altered mental status? Metabolic Toxic Toxic metabolic Other (explain) Clinically unable to determine (explain) Thank you, Shagufta Vicente, MS, RN, CCRN Use of terms such as suspected, likely, concern for, or probable (associated with a specific diagnosi s that is being evaluated, monitored, or treated as if it exists) are acceptable and can be coded in the inpatient se tting, when documented at the time of discharge. Please use your independent medical judgment in providing your response. THIS QUERY IS PART OF THE PERMANENT MEDICAL RECORD
--- NOTE | 2022-10-16 16:06 | P.CDIM_ITS ---
PROVIDER RESPONSE TEXT: To clarify, the appropriate diagnosis supported by the clinical indicators: Other QUERY TEXT: PHYSICIAN'S DOCUMENTATION REQUEST Date of Query: 10/13/2022 09:08 AM EST Patient Name: Nicki Woodruff Admit Date: 09/29/2022 Dear Ricardo Aaron, A review of the medical record indicates additional documentation may be needed. Please review below and update the documentation accordingly. Clinical indicators/risk factors: -Acute hypoxic respiratory failure- following COVID-19 diagnosed 09/19 -Patient being treated for COPD exacerbation -Patient with interstitial lung disease Per last chest x-ray: diffuse increased interstitial lung marking might be recurrent interstitial pneumonitis or edema Based on the above, could you please confirm/rule out the suspected/possible diagnosis of pulmonary e delisa? Acute/chronic pulmonary edema due to heart failure Acute/chronic pulmonary edema due to non-cardiac etiology Please specify cause Other Other (explain) Clinically unable to determine (explain) Thank you, Shagufta Vicente MS, RN, CCRN Use of terms such as suspected, likely, concern for, or probable (associated with a specific diagnosi s that is being evaluated, monitored, or treated as if it exists) are acceptable and can be coded in the inpatient se tting, when documented at the time of discharge. Please use your independent medical judgment in providing your response. THIS QUERY IS PART OF THE PERMANENT MEDICAL RECORD
[2022-10-16 19:19] VITALS: BP 109/53; PULSE 69; RESP 17; TEMP 37; O2SAT 92
[2022-10-16] MEDS: Atorvastatin Calcium 10 MG TABLET PO (21:17)
[2022-10-17] VITALS (7 sets, daily range): BP systolic 92–126; BP diastolic 53–81; PULSE 53–92; RESP 18–20; TEMP 36.4–37.1; O2SAT 90–97
[2022-10-17] MEDS: Divalproex Sodium Sprinkles 125 MG CAP.DR.SPR 250 MG PO ×3 (08:34→20:02)
[2022-10-17] MEDS: risperiDONE 1 MG TABLET PO ×2 (08:34→15:18)
[2022-10-17] MEDS: Escitalopram Oxalate 10 MG TABLET PO (08:34)
[2022-10-17] MEDS: busPIRone HCl 10 MG TABLET PO ×2 (08:34→20:02)
[2022-10-17] MEDS: Lactulose 20 GM/30 ML SOLUTION 30 GM PO ×2 (08:34→20:02)
[2022-10-17] MEDS: Gabapentin 100 MG CAPSULE PO ×3 (08:34→20:02)
[2022-10-17 10:04] LABS: Anion Gap 12 (12-20); Blood Urea Nitrogen 10 mg/dL (9-16); Calcium 8.4 mg/dL (8.4-10.2); Carbon Dioxide 31 mmol/L (22-29); Chloride 102 mmol/L (96-108); Creatinine Clr Calc Pharmacy 68.8; Estimated Glomerular Filt Rate > 60; Glucose Random 97 mg/dL (60-115); Sodium 141 mmol/L (135-145)
--- NOTE | 2022-10-17 13:19 | HO.PM.IMPN ---
Subjective Subjective Date of Service: 10/17/22 Interval History: no dyspnea or cough denies anxiety/depression/SI/AH/VH Review of Systems Review of Systems: Yes all other systems are reviewed and are negative Physical Exam Vital Signs: Vital Signs: Last Vital Signs Temp 98.5 F 10/17/22 11:14 Pulse 84 10/17/22 11:14 Resp 20 10/17/22 11:14 BP 126/56 L 10/17/22 11:14 Pulse Ox 93 10/17/22 11:14 O2 Del Method 10/17/22 11:14 O2 Flow Rate 1 10/07/22 14:57 BMI result Body Mass Index 20.5 Gen: in no acute distress HEENT: sclera anicteric, moist mucus membranes Neck: supple Lungs: clear bilaterally Heart: RRR no murmurs Abd: soft, non-tender, non-distended Ext: no edema Skin: warm/well-perfused Neuro: alert, no focal findings Psych: appropriate affect Objective Data Active Medications Acetaminophen (Acetaminophen 325 Mg Tablet) 650 mg PO Q6H PRN PRN Reason: Headache/Pain Mild Scale (1-3) Last Admin: 10/14/22 14:31 Dose: 650 mg Documented By: THAO Al Hydroxide/Mg Hydroxide (Magnesium Hydrox/Alum Hydrox 30 Ml Oral.Susp) 30 ml PO Q6H PRN PRN Reason: Heartburn/Nausea Albuterol Sulfate (Albuterol Sulfate 90 Mcg 8 Gm Inhaler) 1 puff INHALE RQ4H PRN PRN Reason: Dyspnea Atorvastatin Calcium (Atorvastatin Calcium 10 Mg Tablet) 10 mg PO BEDTIME [facility] Last Admin: 10/16/22 21:17 Dose: 10 mg Documented By: KELVIN Buspirone HCl (Buspirone Hcl 10 Mg Tablet) 10 mg PO BID [facility] Last Admin: 10/17/22 08:34 Dose: 10 mg Documented By: MIKE Divalproex Sodium (Divalproex Sodium Sprinkboy 125 Mg ) 250 mg PO TID [facility] Last Admin: 10/17/22 08:34 Dose: 250 mg Documented By: MIKE Escitalopram Oxalate (Escitalopram Oxalate 10 Mg Tablet) 10 mg PO DAILY [facility] Last Admin: 10/17/22 08:34 Dose: 10 mg Documented By: MIKE Fluticasone/Vilanterol (Fluticasone/Vilanterol 100/25 Blst.W.Dev) 1 puff INHALE RDAILY [facility] Last Admin: 10/17/22 07:55 Dose: Not Given Documented By: TORRI Non-Admin Reason: Patient Asleep Gabapentin (Gabapentin 100 Mg Capsule) 100 mg PO TID [facility] Last Admin: 10/17/22 08:34 Dose: 100 mg Documented By: MIKE Heparin Sodium (Porcine) (Heparin Sodium,Porcine 5,000 Unit/Ml Vial) 5,000 unit SUBCUT Q12H [facility] Last Admin: 10/17/22 04:46 Dose: Not Given Documented By: KELVIN Non-Admin Reason: Patient Refused Lactulose (Lactulose 20 Gm/30 Ml Solution) 30 gm PO BID [facility] Last Admin: 10/17/22 08:34 Dose: 30 gm Documented By: MIKE Magnesium Hydroxide (Milk Of Magnesia 30 Ml Oral.Susp) 30 ml PO DAILY PRN PRN Reason: Constipation Omeprazole (Omeprazole 20 Mg Capsule.Dr) 20 mg PO DAILY@0630 [facility] Last Admin: 10/17/22 05:35 Dose: Not Given Documented By: KELVIN Non-Admin Reason: Patient Refused Risperidone (Risperidone 1 Mg Tablet) 1 mg PO BID@0900,1600 [facility] Last Admin: 10/17/22 08:34 Dose: 1 mg Documented By: MIKE Sodium Chloride (0.9 % Sodium Chloride Flush 3 Ml Syringe) 3 ml IVFLUSH QSHIFT [facility] Last Admin: 10/17/22 08:38 Dose: Not Given Documented By: MIKE Non-Admin Reason: No Access Tiotropium [place] (Tiotropium [place] 18 Mcg Cap.W.Dev) 1 puff INHALE RDAILY [facility] Last Admin: 10/17/22 07:55 Dose: Not Given Documented By: TORRI Non-Admin Reason: Patient Asleep Labs 10/06/22 07:19 10/17/22 09:01 Labs: Laboratory Results - last 24 hr 10/17/22 09:01 Anion Gap 12 Estim Creat Clear Calc 68.8 Estimated GFR > 60 Random Glucose 97 Calcium 8.4 Assessment and Plan (1) Acute respiratory failure with hypoxia: Status: Acute Plan d#19 67 year-old female with history of unspecified dementia, depression, and COPD admitted for acute hypoxemic respiratory failure transferred to hospitalist service from Psychiatry for further management of acute hypoxic respiratory failure; likely secondary to recent COVID-19 infection in backdrop of COPD/interstitial lung disease # sinus bradycardia - improved with d/c'ing trazodone + memantine.? # acute hypoxic respiratory failure- following COVID-19 diagnosed 09/19 - weaned off O2 - wean steroids- changed to PO prednisone- taper over next 8d - d/c'ed isolation precautions # hypoNa - resolved after free water repletion # hypoK - repleted # COPD exacerbation acute - resolved, completed doxy + steroids, continue triple controller inhalers # unspecified dementia with behavioral disturbance and depression - continue valproate, escitalopram, buspirone, risperidone # VTE ppx: LMWH # dispo: TBD, CM consultation, does not need psychiatry per CARE team In my clinical judgment, the patient requires continued inpatient hospitalization for the following reasons: safe disposition Time Spent With Patient Time: Total time managing care of this patient today __25__ minutes. Quality Stroke Does the patient have a stroke diagnosis?: No VTE Prior VTE?: No VTE Risk Level:: Medical - moderate - high VTE Device Contraindication: Treatment Not Indicated VTE Drug Contraindication: N/A - Med Ordered
[2022-10-17] MEDS: Heparin Sodium,Porcine 5,000 UNIT/ML VIAL 5000 UNIT SUBCUT (15:54)
[2022-10-17] MEDS: Atorvastatin Calcium 10 MG TABLET PO (20:02)
[2022-10-18 07:52] VITALS: BP 111/64; PULSE 71; RESP 20; TEMP 36.1; O2SAT 92
[2022-10-18] MEDS: Gabapentin 100 MG CAPSULE PO ×3 (08:23→20:20)
[2022-10-18] MEDS: busPIRone HCl 10 MG TABLET PO ×2 (08:23→20:20)
[2022-10-18] MEDS: Lactulose 20 GM/30 ML SOLUTION 30 GM PO ×2 (08:23→20:24)
[2022-10-18] MEDS: Enoxaparin Sodium 40 MG/0.4 ML SYRINGE SUBCUT (08:23)
[2022-10-18] MEDS: Divalproex Sodium Sprinkles 125 MG CAP.DR.SPR 250 MG PO ×3 (08:23→20:19)
[2022-10-18] MEDS: risperiDONE 1 MG TABLET PO ×2 (08:23→15:04)
[2022-10-18] MEDS: Escitalopram Oxalate 10 MG TABLET PO (08:23)
[2022-10-18] MEDS: Omeprazole 20 MG CAPSULE.DR PO (08:23)
[2022-10-18 11:31] VITALS: BP 106/61; PULSE 85; RESP 20; TEMP 37.2; O2SAT 93
--- NOTE | 2022-10-18 12:46 | HO.PM.IMPN ---
Subjective Subjective Date of Service: 10/18/22 Interval History: no dyspnea no cough no complaints Review of Systems Review of Systems: Yes all other systems are reviewed and are negative Physical Exam Vital Signs: Vital Signs: Last Vital Signs Temp 99.0 F 10/18/22 11:31 Pulse 85 10/18/22 11:31 Resp 20 10/18/22 11:31 BP 106/61 10/18/22 11:31 Pulse Ox 93 10/18/22 11:31 O2 Del Method 10/18/22 11:31 O2 Flow Rate 1 10/07/22 14:57 BMI result Body Mass Index 20.5 Gen: in no acute distress HEENT: sclera anicteric, moist mucus membranes Neck: supple Lungs: clear bilaterally Heart: RRR no murmurs Abd: soft, non-tender, non-distended Ext: no edema Skin: warm/well-perfused Neuro: alert, no focal findings Psych: appropriate affect Objective Data Active Medications Acetaminophen (Acetaminophen 325 Mg Tablet) 650 mg PO Q6H PRN PRN Reason: Headache/Pain Mild Scale (1-3) Last Admin: 10/14/22 14:31 Dose: 650 mg Documented By: THAO Al Hydroxide/Mg Hydroxide (Magnesium Hydrox/Alum Hydrox 30 Ml Oral.Susp) 30 ml PO Q6H PRN PRN Reason: Heartburn/Nausea Albuterol Sulfate (Albuterol Sulfate 90 Mcg 8 Gm Inhaler) 1 puff INHALE RQ4H PRN PRN Reason: Dyspnea Atorvastatin Calcium (Atorvastatin Calcium 10 Mg Tablet) 10 mg PO BEDTIME [facility] Last Admin: 10/17/22 20:02 Dose: 10 mg Documented By: KELVIN Buspirone HCl (Buspirone Hcl 10 Mg Tablet) 10 mg PO BID [facility] Last Admin: 10/18/22 08:23 Dose: 10 mg Documented By: MIKE Divalproex Sodium (Divalproex Sodium Sprinkles 125 Mg ) 250 mg PO TID [facility] Last Admin: 10/18/22 08:23 Dose: 250 mg Documented By: MIKE Enoxaparin Sodium (Enoxaparin Sodium 40 Mg/0.4 Ml Syringe) 40 mg SUBCUT Q24H [facility] Last Admin: 10/18/22 08:23 Dose: 40 mg Documented By: MIKE Escitalopram Oxalate (Escitalopram Oxalate 10 Mg Tablet) 10 mg PO DAILY [facility] Last Admin: 10/18/22 08:23 Dose: 10 mg Documented By: MIKE Fluticasone/Vilanterol (Fluticasone/Vilanterol 100/25 Blst.W.Dev) 1 puff INHALE RDAILY [facility] Last Admin: 10/18/22 08:00 Dose: Not Given Documented By: TORRI Non-Admin Reason: pt uable to do Gabapentin (Gabapentin 100 Mg Capsule) 100 mg PO TID [facility] Last Admin: 10/18/22 08:23 Dose: 100 mg Documented By: MIKE Lactulose (Lactulose 20 Gm/30 Ml Solution) 30 gm PO BID [facility] Last Admin: 10/18/22 08:23 Dose: 30 gm Documented By: MIKE Magnesium Hydroxide (Milk Of Magnesia 30 Ml Oral.Susp) 30 ml PO DAILY PRN PRN Reason: Constipation Omeprazole (Omeprazole 20 Mg Capsule.Dr) 20 mg PO DAILY@0630 [facility] Last Admin: 10/18/22 08:23 Dose: 20 mg Documented By: MIKE Risperidone (Risperidone 1 Mg Tablet) 1 mg PO BID@0900,1600 [facility] Last Admin: 10/18/22 08:23 Dose: 1 mg Documented By: MIKE Sodium Chloride (0.9 % Sodium Chloride Flush 3 Ml Syringe) 3 ml IVFLUSH QSHIFT [facility] Last Admin: 10/18/22 08:22 Dose: Not Given Documented By: MIKE Non-Admin Reason: No Access Tiotropium [place] (Tiotropium [place] 18 Mcg Cap.W.Dev) 1 puff INHALE RDAILY [facility] Last Admin: 10/18/22 08:01 Dose: Not Given Documented By: TORRI Non-Admin Reason: pt unable Labs 10/06/22 07:19 10/17/22 09:01 Assessment and Plan (1) Acute respiratory failure with hypoxia: Status: Acute Plan d#20 67 year-old female with history of unspecified dementia, depression, and COPD admitted for acute hypoxemic respiratory failure transferred to hospitalist service from Psychiatry for further management of acute hypoxic respiratory failure; likely secondary to recent COVID-19 infection in backdrop of COPD/interstitial lung disease # sinus bradycardia - improved with d/c'ing trazodone + memantine.? # acute hypoxic respiratory failure- following COVID-19 diagnosed 09/19 - weaned off O2 - wean steroids- changed to PO prednisone- taper over next 8d - d/c'ed isolation precautions # hypoNa - resolved after free water repletion # hypoK - repleted # COPD exacerbation acute - resolved, completed doxy + steroids, continue triple controller inhalers # unspecified dementia with behavioral disturbance and depression - continue valproate, escitalopram, buspirone, risperidone # VTE ppx: LMWH # dispo: TBD, CM consultation, does not need psychiatry per CARE team In my clinical judgment, the patient requires continued inpatient hospitalization for the following reasons: safe disposition Time Spent With Patient Time: Total time managing care of this patient today ___25_ minutes. Quality Stroke Does the patient have a stroke diagnosis?: No VTE Prior VTE?: No VTE Risk Level:: Medical - moderate - high VTE Device Contraindication: Treatment Not Indicated VTE Drug Contraindication: N/A - Med Ordered
[2022-10-18 15:43] VITALS: BP 139/78; PULSE 89; RESP 18; TEMP 37; O2SAT 93
[2022-10-18] MEDS: 0.9 % Sodium Chloride Flush 3 ML SYRINGE IVFLUSH (20:23)
[2022-10-18] MEDS: Atorvastatin Calcium 10 MG TABLET PO (20:24)
[2022-10-19] MEDS: Omeprazole 20 MG CAPSULE.DR PO (05:31)
[2022-10-19 07:53] VITALS: BP 111/57; PULSE 69; RESP 16; TEMP 36.6; O2SAT 90
[2022-10-19] MEDS: Lactulose 20 GM/30 ML SOLUTION 30 GM PO ×2 (09:02→22:28)
[2022-10-19] MEDS: Gabapentin 100 MG CAPSULE PO ×3 (09:03→22:26)
[2022-10-19] MEDS: Enoxaparin Sodium 40 MG/0.4 ML SYRINGE SUBCUT (09:03)
[2022-10-19] MEDS: Divalproex Sodium Sprinkles 125 MG CAP.DR.SPR 250 MG PO ×3 (09:05→22:25)
[2022-10-19] MEDS: Escitalopram Oxalate 10 MG TABLET PO (09:05)
[2022-10-19] MEDS: risperiDONE 1 MG TABLET PO ×2 (09:05→17:04)
[2022-10-19] MEDS: busPIRone HCl 10 MG TABLET PO ×2 (09:06→22:27)
--- NOTE | 2022-10-19 09:10 | MHC.CM.PN ---
LTC continues to be the goal/all SNF referrals have been updated and CM will continue to follow.
--- NOTE | 2022-10-19 10:55 | HO.PM.IMPN ---
Subjective Subjective Date of Service: 10/19/22 Interval History: no dyspnea no cough Review of Systems Review of Systems: Yes all other systems are reviewed and are negative Physical Exam Vital Signs: Vital Signs: Last Vital Signs Temp 97.9 F 10/19/22 07:53 Pulse 69 10/19/22 07:53 Resp 16 10/19/22 07:53 BP 111/57 L 10/19/22 07:53 Pulse Ox 90 L 10/19/22 07:53 O2 Del Method 10/19/22 07:53 O2 Flow Rate 1 10/07/22 14:57 BMI result Body Mass Index 20.5 Gen: in no acute distress HEENT: sclera anicteric, moist mucus membranes Neck: supple Lungs: clear bilaterally Heart: RRR no murmurs Abd: soft, non-tender, non-distended Ext: no edema Skin: warm/well-perfused Neuro: alert, no focal findings Psych: appropriate affect Objective Data Active Medications Acetaminophen (Acetaminophen 325 Mg Tablet) 650 mg PO Q6H PRN PRN Reason: Headache/Pain Mild Scale (1-3) Last Admin: 10/14/22 14:31 Dose: 650 mg Documented By: THAO Al Hydroxide/Mg Hydroxide (Magnesium Hydrox/Alum Hydrox 30 Ml Oral.Susp) 30 ml PO Q6H PRN PRN Reason: Heartburn/Nausea Albuterol Sulfate (Albuterol Sulfate 90 Mcg 8 Gm Inhaler) 1 puff INHALE RQ4H PRN PRN Reason: Dyspnea Atorvastatin Calcium (Atorvastatin Calcium 10 Mg Tablet) 10 mg PO BEDTIME [facility] BEDS AT [facility] Last Admin: 10/18/22 20:24 Dose: 10 mg Documented By: FOREIGN Buspirone HCl (Buspirone Hcl 10 Mg Tablet) 10 mg PO BID [facility] 234 B[facility]S AT [facility] Last Admin: 10/19/22 09:06 Dose: 10 mg Documented By: FABIO Divalproex Sodium (Divalproex Sodium Sprinkles 125 Mg ) 250 mg PO TID [facility] 234 BEDS AT [facility] Last Admin: 10/19/22 09:05 Dose: 250 mg Documented By: FABIO Enoxaparin Sodium (Enoxaparin Sodium 40 Mg/0.4 Ml Syringe) 40 mg SUBCUT Q24H [facility] 234 BEDS AT [facility] Last Admin: 10/19/22 09:03 Dose: 40 mg Documented By: FABIO Escitalopram Oxalate (Escitalopram Oxalate 10 Mg Tablet) 10 mg PO DAILY [facility] 234 BEDS AT [facility] Last Admin: 10/19/22 09:05 Dose: 10 mg Documented By: FABIO Fluticasone/Vilanterol (Fluticasone/Vilanterol 100/25 Blst.W.Dev) 1 puff INHALE RDAILY [facility] 234 [facility]S AT [facility] Last Admin: 10/19/22 07:41 Dose: Not Given Documented By: TORRI Non-Admin Reason: Patient Asleep Gabapentin (Gabapentin 100 Mg Capsule) 100 mg PO TID [facility] 234 [facility]S [facility] Last Admin: 10/19/22 09:03 Dose: 100 mg Documented By: FABIO Lactulose (Lactulose 20 Gm/30 Ml Solution) 30 gm PO BID [facility] 234 BEDS AT [facility] Last Admin: 10/19/22 09:02 Dose: 30 gm Documented By: FABIO Magnesium Hydroxide (Milk Of Magnesia 30 Ml Oral.Susp) 30 ml PO DAILY PRN PRN Reason: Constipation Omeprazole (Omeprazole 20 Mg Capsule.Dr) 20 mg PO DAILY@0630 [facility] 234 BEDS AT [facility] Last Admin: 10/19/22 05:31 Dose: 20 mg Documented By: FOREIGN Risperidone (Risperidone 1 Mg Tablet) 1 mg PO BID@0900,1600 [facility] 234 BEDS AT [facility] Last Admin: 10/19/22 09:05 Dose: 1 mg Documented By: FABIO Sodium Chloride (0.9 % Sodium Chloride Flush 3 Ml Syringe) 3 ml IVFLUSH QSHIFT [facility]CLUDE 234 BEDS AT [facility] Last Admin: 10/19/22 08:08 Dose: Not Given Documented By: FABIO Non-Admin Reason: No Access Tiotropium [place] (Tiotropium [place] 18 Mcg Cap.W.Dev) 1 puff INHALE RDAILY [facility] 234 BEDS AT [facility] Last Admin: 10/19/22 07:41 Dose: Not Given Documented By: TORRI Non-Admin Reason: Patient Asleep Labs 10/06/22 07:19 10/17/22 09:01 Assessment and Plan (1) Acute respiratory failure with hypoxia: Status: Acute Plan d#21 67 year-old female with history of unspecified dementia, depression, and COPD admitted for acute hypoxemic respiratory failure transferred to hospitalist service from Psychiatry for further management of acute hypoxic respiratory failure; likely secondary to recent COVID-19 infection in backdrop of COPD/interstitial lung disease # sinus bradycardia - improved with d/c'ing trazodone + memantine # acute hypoxic respiratory failure- following COVID-19 diagnosed 09/19 - weaned off O2 - completed steroid taper - d/c'ed isolation precautions # hypoNa - resolved after free water repletion # hypoK - repleted and resolved # COPD exacerbation acute - resolved, completed doxy + steroids - continue triple controller inhaler # unspecified dementia with behavioral disturbance and depression - continue valproate, escitalopram, buspirone, risperidone # VTE ppx: LMWH # dispo: TBD, CM consultation, does not need psychiatry per CARE team In my clinical judgment, the patient requires continued inpatient hospitalization for the following reasons: safe disposition Time Spent With Patient Time: Total time managing care of this patient today ___25_ minutes. Quality Stroke Does the patient have a stroke diagnosis?: No VTE Prior VTE?: No VTE Risk Level:: Medical - moderate - high VTE Device Contraindication: Treatment Not Indicated VTE Drug Contraindication: N/A - Med Ordered
[2022-10-19 11:42] VITALS: BP 116/58; PULSE 72; RESP 18; TEMP 36.7; O2SAT 91
--- NOTE | 2022-10-19 13:31 | MHC.CM.PN ---
RANJIT spoke with Armaan from [facility] today at [phone], faxed him Patient's PT notes to [phone], and asked Patient's RN to call Armaan (per his request) to discuss any behaviors and other Nursing questions.Per Armaan, [facility] in [place] may have a bed for Patient tomorrow. RANJIT will continue to follow.
--- NOTE | 2022-10-19 13:51 | MHC.CM.PN ---
[facility] has now indicated that they may not have an available bed until . CM will continue to follow.
[2022-10-19 19:37] VITALS: BP 143/72; PULSE 99; RESP 16; TEMP 36.6; O2SAT 91
[2022-10-19] MEDS: Atorvastatin Calcium 10 MG TABLET PO (22:25)
[2022-10-19 23:07] VITALS: BP 106/56; PULSE 74; RESP 15; TEMP 36.5; O2SAT 92
[2022-10-20 04:00] VITALS: RESP 16
[2022-10-20] MEDS: Omeprazole 20 MG CAPSULE.DR PO (06:10)
[2022-10-20] MEDS: Fluticasone/Vilanterol 100/25 BLST.W.DEV 1 PUFF INHALE (08:20)
[2022-10-20 08:22] VITALS: PULSE 74; RESP 15; O2SAT 92
[2022-10-20 08:58] VITALS: BP 102/50
[2022-10-20] MEDS: busPIRone HCl 10 MG TABLET PO ×2 (09:05→20:09)
[2022-10-20] MEDS: Lactulose 20 GM/30 ML SOLUTION 30 GM PO ×2 (09:05→20:09)
[2022-10-20] MEDS: Gabapentin 100 MG CAPSULE PO ×3 (09:05→20:09)
[2022-10-20] MEDS: Enoxaparin Sodium 40 MG/0.4 ML SYRINGE SUBCUT (09:05)
[2022-10-20] MEDS: Escitalopram Oxalate 10 MG TABLET PO (09:05)
[2022-10-20] MEDS: Divalproex Sodium Sprinkles 125 MG CAP.DR.SPR 250 MG PO ×3 (09:05→20:09)
[2022-10-20] MEDS: risperiDONE 1 MG TABLET PO ×2 (09:05→16:00)
--- NOTE | 2022-10-20 12:06 | P.PNIM_ITS ---
Subjective Subjective Date of Service: 10/20/22 Interval History: no new complaints Review of Systems Review of Systems: Yes all other systems are reviewed and are negative Physical Exam Vital Signs: Vital Signs: Last Vital Signs Temp 97.7 F 10/19/22 23:07 Pulse 74 10/20/22 08:22 Resp 15 10/20/22 08:22 BP 102/50 L 10/20/22 08:58 Pulse Ox 92 10/19/22 23:07 O2 Del Method 10/19/22 23:07 O2 Flow Rate 1 10/07/22 14:57 BMI result Body Mass Index 20.5 Gen: in no acute distress HEENT: sclera anicteric, moist mucus membranes Neck: supple Lungs: clear bilaterally Heart: RRR no murmurs Abd: soft, non-tender, non-distended Ext: no edema Skin: warm/well-perfused Neuro: alert, no focal findings Psych: appropriate affect Objective Data Active Medications Acetaminophen (Acetaminophen 325 Mg Tablet) 650 mg PO Q6H PRN PRN Reason: Headache/Pain Mild Scale (1-3) Last Admin: 10/14/22 14:31 Dose: 650 mg Documented By: THAO Al Hydroxide/Mg Hydroxide (Magnesium Hydrox/Alum Hydrox 30 Ml Oral.Susp) 30 ml PO Q6H PRN PRN Reason: Heartburn/Nausea Albuterol Sulfate (Albuterol Sulfate 90 Mcg 8 Gm Inhaler) 1 puff INHALE RQ4H PRN PRN Reason: Dyspnea Atorvastatin Calcium (Atorvastatin Calcium 10 Mg Tablet) 10 mg PO BEDTIME [facility] Last Admin: 10/19/22 22:25 Dose: 10 mg Documented By: FOREIGN Buspirone HCl (Buspirone Hcl 10 Mg Tablet) 10 mg PO BID [facility] Last Admin: 10/20/22 09:05 Dose: 10 mg Documented By: LIVIA Divalproex Sodium (Divalproex Sodium Sprinkles 125 Mg ) 250 mg PO TID [facility] Last Admin: 10/20/22 09:05 Dose: 250 mg Documented By: LIVIA Enoxaparin Sodium (Enoxaparin Sodium 40 Mg/0.4 Ml Syringe) 40 mg SUBCUT Q24H [facility] Last Admin: 10/20/22 09:05 Dose: 40 mg Documented By: LIVIA Escitalopram Oxalate (Escitalopram Oxalate 10 Mg Tablet) 10 mg PO DAILY [facility] Last Admin: 10/20/22 09:05 Dose: 10 mg Documented By: LIVIA Fluticasone/Vilanterol (Fluticasone/Vilanterol 100/25 Blst.W.Dev) 1 puff INHALE RDAILY [facility] Last Admin: 10/20/22 08:20 Dose: 1 puff Documented By: JOE Gabapentin (Gabapentin 100 Mg Capsule) 100 mg PO TID [facility] Last Admin: 10/20/22 09:05 Dose: 100 mg Documented By: LIVIA Lactulose (Lactulose 20 Gm/30 Ml Solution) 30 gm PO BID [facility] Last Admin: 10/20/22 09:05 Dose: 30 gm Documented By: LIVIA Magnesium Hydroxide (Milk Of Magnesia 30 Ml Oral.Susp) 30 ml PO DAILY PRN PRN Reason: Constipation Omeprazole (Omeprazole 20 Mg Capsule.Dr) 20 mg PO DAILY@0630 [facility] Last Admin: 10/20/22 06:10 Dose: 20 mg Documented By: FOREIGN Risperidone (Risperidone 1 Mg Tablet) 1 mg PO BID@0900,1600 [facility] Last Admin: 10/20/22 09:05 Dose: 1 mg Documented By: LIVIA Sodium Chloride (0.9 % Sodium Chloride Flush 3 Ml Syringe) 3 ml IVFLUSH QSHIFT [facility] Last Admin: 10/20/22 09:03 Dose: Not Given Documented By: LIVIA Non-Admin Reason: No Access Tiotropium [place] (Tiotropium [place] 18 Mcg Cap.W.Dev) 1 puff INHALE RDAILY [facility] Last Admin: 10/20/22 08:20 Dose: 1 puff Documented By: JOE Labs 10/06/22 07:19 10/17/22 09:01 Assessment and Plan (1) Acute respiratory failure with hypoxia: Status: Acute Plan d#22 67 year-old female with history of unspecified dementia, depression, and COPD admitted for acute hypoxemic respiratory failure transferred to hospitalist service from Psychiatry for further management of acute hypoxic respiratory failure; likely secondary to recent COVID-19 infection in backdrop of COPD/interstitial lung disease # sinus bradycardia - improved with d/c'ing trazodone + memantine # acute hypoxic respiratory failure- following COVID-19 diagnosed 09/19 - weaned off O2 - completed steroid taper - d/c'ed isolation precautions # hypoNa - resolved after free water repletion # hypoK - repleted and resolved # COPD exacerbation acute - resolved, completed doxy + steroids - continue triple controller inhaler # unspecified dementia with behavioral disturbance and depression - continue valproate, escitalopram, buspirone, risperidone # VTE ppx: LMWH # dispo: TBD, CM consultation, does not need psychiatry per CARE team In my clinical judgment, the patient requires continued inpatient hospitalization for the following reasons: safe disposition Time Spent With Patient Time: Total time managing care of this patient today _25___ minutes. Quality Stroke Does the patient have a stroke diagnosis?: No VTE Prior VTE?: No VTE Risk Level:: Medical - moderate - high VTE Device Contraindication: Treatment Not Indicated VTE Drug Contraindication: N/A - Med Ordered
[2022-10-20 19:49] VITALS: BP 141/65; PULSE 87; RESP 17; TEMP 36.8; O2SAT 92
[2022-10-20] MEDS: Atorvastatin Calcium 10 MG TABLET PO (20:08)
[2022-10-20 23:52] VITALS: RESP 15
[2022-10-21] VITALS (7 sets, daily range): BP systolic 104–139; BP diastolic 67–84; PULSE 73–89; RESP 16–20; TEMP 36.6–37.1; O2SAT 92–98
[2022-10-21] MEDS: Omeprazole 20 MG CAPSULE.DR PO (06:08)
[2022-10-21] MEDS: Fluticasone/Vilanterol 100/25 BLST.W.DEV 1 PUFF INHALE (08:02)
[2022-10-21] MEDS: busPIRone HCl 10 MG TABLET PO ×2 (08:55→21:00)
[2022-10-21] MEDS: Divalproex Sodium Sprinkles 125 MG CAP.DR.SPR 250 MG PO ×3 (08:55→20:51)
[2022-10-21] MEDS: Escitalopram Oxalate 10 MG TABLET PO (08:55)
[2022-10-21] MEDS: Enoxaparin Sodium 40 MG/0.4 ML SYRINGE SUBCUT (08:56)
[2022-10-21] MEDS: risperiDONE 1 MG TABLET PO ×2 (08:56→15:03)
[2022-10-21] MEDS: Gabapentin 100 MG CAPSULE PO ×3 (08:56→20:51)
--- NOTE | 2022-10-21 09:18 | MHC.CM.PN ---
Broad SNF search continues and all SNF referrals have been updated QD. CM will follow.
--- NOTE | 2022-10-21 15:12 | P.PNIM_ITS ---
Subjective Subjective Date of Service: 10/21/22 Interval History: remains alert cooperative but confused during the evening Review of Systems unable to obtain Physical Exam Vital Signs: Vital Signs: Last Vital Signs Temp 98.5 F 10/21/22 11:30 Pulse 80 10/21/22 11:30 Resp 17 10/21/22 11:30 BP 113/78 10/21/22 11:30 Pulse Ox 93 10/21/22 11:30 O2 Del Method 10/21/22 11:30 O2 Flow Rate 1 10/07/22 14:57 BMI result Body Mass Index 20.5 Const: Other: awake alert confused Resp: Other: clear to auscultation bilaterally no rales rhonchi or wheezes Cardio: Other: no S4; positive S1-S2; no S3 murmurs rubs or gallops GI: Other: soft nontender nondistended normoactive bowel sounds Extrem: Other: no edema bilaterally Objective Data Active Medications Acetaminophen (Acetaminophen 325 Mg Tablet) 650 mg PO Q6H PRN PRN Reason: Headache/Pain Mild Scale (1-3) Last Admin: 10/14/22 14:31 Dose: 650 mg Documented By: THAO Al Hydroxide/Mg Hydroxide (Magnesium Hydrox/Alum Hydrox 30 Ml Oral.Susp) 30 ml PO Q6H PRN PRN Reason: Heartburn/Nausea Albuterol Sulfate (Albuterol Sulfate 90 Mcg 8 Gm Inhaler) 1 puff INHALE RQ4H PRN PRN Reason: Dyspnea Atorvastatin Calcium (Atorvastatin Calcium 10 Mg Tablet) 10 mg PO BEDTIME REPLACED BY [facility] Last Admin: 10/20/22 20:08 Dose: 10 mg Documented By: FABIO Buspirone HCl (Buspirone Hcl 10 Mg Tablet) 10 mg PO BID REPLACED BY [facility] Last Admin: 10/21/22 08:55 Dose: 10 mg Documented By: LIVIA Divalproex Sodium (Divalproex Sodium Sprinkles 125 Mg ) 250 mg PO TID REPLACED BY [facility] Last Admin: 10/21/22 15:04 Dose: 250 mg Documented By: LIVIA Enoxaparin Sodium (Enoxaparin Sodium 40 Mg/0.4 Ml Syringe) 40 mg SUBCUT Q24H REPLACED BY [facility] Last Admin: 10/21/22 08:56 Dose: 40 mg Documented By: LIVIA Escitalopram Oxalate (Escitalopram Oxalate 10 Mg Tablet) 10 mg PO DAILY REPLACED BY [facility] Last Admin: 10/21/22 08:55 Dose: 10 mg Documented By: LIVIA Fluticasone/Vilanterol (Fluticasone/Vilanterol 100/25 Blst.W.Dev) 1 puff INHALE RDAILY REPLACED BY [facility] Last Admin: 10/21/22 08:02 Dose: 1 puff Documented By: KIMBERLY Gabapentin (Gabapentin 100 Mg Capsule) 100 mg PO TID REPLACED BY [facility] Last Admin: 10/21/22 15:03 Dose: 100 mg Documented By: LIVIA Lactulose (Lactulose 20 Gm/30 Ml Solution) 30 gm PO BID REPLACED BY [facility] Last Admin: 10/21/22 09:01 Dose: Not Given Documented By: LIVIA Non-Admin Reason: Patient Refused Magnesium Hydroxide (Milk Of Magnesia 30 Ml Oral.Susp) 30 ml PO DAILY PRN PRN Reason: Constipation Omeprazole (Omeprazole 20 Mg Capsule.) 20 mg PO DAILY@0630 REPLACED BY [facility] Last Admin: 10/21/22 06:08 Dose: 20 mg Documented By: LI Risperidone (Risperidone 1 Mg Tablet) 1 mg PO BID@0900,1600 REPLACED BY [facility] Last Admin: 10/21/22 15:03 Dose: 1 mg Documented By: LIVIA Sodium Chloride (0.9 % Sodium Chloride Flush 3 Ml Syringe) 3 ml IVFLUSH QSHIFT REPLACED BY [facility] Last Admin: 10/21/22 15:04 Dose: Not Given Documented By: LIVIA Non-Admin Reason: No Access Tiotropium [place] (Tiotropium [place] 18 Mcg Cap.W.Dev) 1 puff INHALE RDAILY REPLACED BY [facility] Last Admin: 10/21/22 08:02 Dose: 1 puff Documented By: KIMBERLY Labs 10/06/22 07:19 10/17/22 09:01 Assessment and Plan (1) Bradycardia: Status: Acute (2) Acute respiratory failure with hypoxia: Status: Acute Plan 67 year-old female with history of unspecified dementia, depression, and COPD admitted for acute hypoxemic respiratory failure transferred to hospitalist serv ice from Psychiatry for further management of acute hypoxic respiratory failure; likely secondary to recent COVID-19 infection in backdrop of COPD/interstitial lung disease 1.Sinus bradycardia - rhythm strips reviewed; bradycardia and not significant - will add back gabapentin 1st and then trazodone if needed - follow clinically... No bradycardia 2.Acute hypoxic respiratory failure- following COVID-19 diagnosed 09/19 - weaned off O2 - 3.Hypernatremia - resolved -follow renals/divalent 4.COPD exacerbation acute.. - doxycycline d#5/ (PO), steroids as above, continue triple controller inhaler 5.Unspecified dementia with behavioral disturbance and depression - continue valproate, escitalopram, buspirone - add gabapentin t.i.d.; add trazodone if no response to gabapentin LMWH full code In my clinical judgment, the patient requires continued inpatient hospitalization for the following reasons: safe disposition Time Spent With Patient Time: Total time managing care of this patient today ____ minutes. Quality Stroke Does the patient have a stroke diagnosis?: No VTE Prior VTE?: No VTE Risk Level:: Medical - moderate - high VTE Device Contraindication: Treatment Not Indicated VTE Drug Contraindication: N/A - Med Ordered
[2022-10-21] MEDS: Atorvastatin Calcium 10 MG TABLET PO (20:51)
[2022-10-22 04:00] VITALS: BP 145/69; PULSE 76; RESP 20; TEMP 36.9; O2SAT 94
[2022-10-22 08:00] VITALS: BP 103/55; PULSE 76; RESP 16; TEMP 36.6; O2SAT 96
[2022-10-22] MEDS: Fluticasone/Vilanterol 100/25 BLST.W.DEV 1 PUFF INHALE (08:08)
[2022-10-22 08:10] VITALS: PULSE 90; RESP 18; O2SAT 90
[2022-10-22] MEDS: risperiDONE 1 MG TABLET PO ×2 (09:42→16:43)
[2022-10-22] MEDS: Enoxaparin Sodium 40 MG/0.4 ML SYRINGE SUBCUT (09:42)
[2022-10-22] MEDS: Gabapentin 100 MG CAPSULE PO ×3 (09:42→20:25)
[2022-10-22] MEDS: Divalproex Sodium Sprinkles 125 MG CAP.DR.SPR 250 MG PO ×3 (09:42→20:25)
[2022-10-22] MEDS: Escitalopram Oxalate 10 MG TABLET PO (09:42)
[2022-10-22] MEDS: busPIRone HCl 10 MG TABLET PO ×2 (09:42→20:25)
[2022-10-22 11:17] VITALS: BP 102/59; PULSE 65; RESP 16; TEMP 36.6; O2SAT 91
--- NOTE | 2022-10-22 14:25 | HO.PM.IMPN ---
Subjective Subjective Date of Service: 10/22/22 Interval History: No acute issues overnight. Remains pleasantly confused Review of Systems unable to obtain Physical Exam Vital Signs: Vital Signs: Last Vital Signs Temp 97.8 F 10/22/22 11:17 Pulse 65 10/22/22 11:17 Resp 16 10/22/22 11:17 BP 102/59 L 10/22/22 11:17 Pulse Ox 91 L 10/22/22 11:17 O2 Del Method 10/22/22 11:17 O2 Flow Rate 1 10/07/22 14:57 BMI result Body Mass Index 20.5 Const: Other: awake alert confused Resp: Other: clear to auscultation bilaterally no rales rhonchi or wheezes Cardio: Other: no S4; positive S1-S2; no S3 murmurs rubs or gallops GI: Other: soft nontender nondistended normoactive bowel sounds Extrem: Other: no edema bilaterally Objective Data Active Medications Acetaminophen (Acetaminophen 325 Mg Tablet) 650 mg PO Q6H PRN PRN Reason: Headache/Pain Mild Scale (1-3) Last Admin: 10/14/22 14:31 Dose: 650 mg Documented By: THAO Al Hydroxide/Mg Hydroxide (Magnesium Hydrox/Alum Hydrox 30 Ml Oral.Susp) 30 ml PO Q6H PRN PRN Reason: Heartburn/Nausea Albuterol Sulfate (Albuterol Sulfate 90 Mcg 8 Gm Inhaler) 1 puff INHALE RQ4H PRN PRN Reason: Dyspnea Atorvastatin Calcium (Atorvastatin Calcium 10 Mg Tablet) 10 mg PO BEDTIME [facility] Last Admin: 10/21/22 20:51 Dose: 10 mg Documented By: JEMMA Buspirone HCl (Buspirone Hcl 10 Mg Tablet) 10 mg PO BID [facility] Last Admin: 10/22/22 09:42 Dose: 10 mg Documented By: MATHEW Divalproex Sodium (Divalproex Sodium Sprinkles 125 Mg ) 250 mg PO TID [facility] Last Admin: 10/22/22 09:42 Dose: 250 mg Documented By: MATHEW Enoxaparin Sodium (Enoxaparin Sodium 40 Mg/0.4 Ml Syringe) 40 mg SUBCUT Q24H [facility] Last Admin: 10/22/22 09:42 Dose: 40 mg Documented By: MATHEW Escitalopram Oxalate (Escitalopram Oxalate 10 Mg Tablet) 10 mg PO DAILY [facility] Last Admin: 10/22/22 09:42 Dose: 10 mg Documented By: MATHEW Fluticasone/Vilanterol (Fluticasone/Vilanterol 100/25 Blst.W.Dev) 1 puff INHALE RDAILY [facility] Last Admin: 10/22/22 08:08 Dose: 1 puff Documented By: MAHSA Gabapentin (Gabapentin 100 Mg Capsule) 100 mg PO TID [facility] Last Admin: 10/22/22 09:42 Dose: 100 mg Documented By: MATHEW Lactulose (Lactulose 20 Gm/30 Ml Solution) 30 gm PO BID [facility] Last Admin: 10/22/22 09:43 Dose: Not Given Documented By: MATHEW Non-Admin Reason: Patient Condition Contraindication Magnesium Hydroxide (Milk Of Magnesia 30 Ml Oral.Susp) 30 ml PO DAILY PRN PRN Reason: Constipation Omeprazole (Omeprazole 20 Mg Capsule.) 20 mg PO DAILY@0630 [facility] Last Admin: 10/22/22 06:37 Dose: Not Given Documented By: JEMMA Non-Admin Reason: Patient Refused Risperidone (Risperidone 1 Mg Tablet) 1 mg PO BID@0900,1600 [facility] Last Admin: 10/22/22 09:42 Dose: 1 mg Documented By: MATHEW Sodium Chloride (0.9 % Sodium Chloride Flush 3 Ml Syringe) 3 ml IVFLUSH QSHIFT [facility] Last Admin: 10/22/22 09:48 Dose: Not Given Documented By: MATHEW Non-Admin Reason: No Access Tiotropium [place] (Tiotropium [place] 18 Mcg Cap.W.Dev) 1 puff INHALE RDAILY [facility] Last Admin: 10/22/22 08:07 Dose: 1 puff Documented By: MAHSA Labs 10/06/22 07:19 10/17/22 09:01 Assessment and Plan (1) Acute respiratory failure with hypoxia: Status: Acute Plan 67 year-old female with history of unspecified dementia, depression, and COPD admitted for acute hypoxemic respiratory failure transferred to hospitalist service from Psychiatry for further management of acute hypoxic respiratory failure; likely secondary to recent COVID-19 infection in backdrop of COPD/interstitial lung disease 1.Sinus bradycardia - rhythm strips reviewed; bradycardia and not significant - will add back gabapentin 1st and then trazodone if needed - follow clinically... No bradycardia 2.Acute hypoxic respiratory failure- following COVID-19 diagnosed 09/19 - weaned off O2 - 3.Hypernatremia - resolved -follow renals/divalent 4.COPD exacerbation acute.. - doxycycline d#5/ (PO), steroids as above, continue triple controller inhaler 5.Unspecified dementia with behavioral disturbance and depression - continue valproate, escitalopram, buspirone...check VPA level am - add gabapentin t.i.d.; add trazodone if no response to gabapentin LMWH full code In my clinical judgment, the patient requires continued inpatient hospitalization for the following reasons: safe disposition Time Spent With Patient Time: Total time managing care of this patient today ____ minutes. Quality Stroke Does the patient have a stroke diagnosis?: No VTE Prior VTE?: No VTE Risk Level:: Medical - moderate - high VTE Device Contraindication: Treatment Not Indicated VTE Drug Contraindication: N/A - Med Ordered
[2022-10-22 16:00] VITALS: BP 127/62; PULSE 78; RESP 16; TEMP 36.8; O2SAT 98
[2022-10-22 20:00] VITALS: BP 98/59; PULSE 75; RESP 16; TEMP 36.3; O2SAT 97
[2022-10-22] MEDS: Atorvastatin Calcium 10 MG TABLET PO (20:25)
[2022-10-23] VITALS (7 sets, daily range): BP systolic 93–127; BP diastolic 51–76; PULSE 61–88; RESP 15–20; TEMP 36–37; O2SAT 91–94
[2022-10-23 07:25] LABS: Valproate 92.1 mcg/mL (50.0-100.0)
[2022-10-23 07:34] LABS: Alanine Aminotransferase 7 U/L (0-31); Albumin Level 3.3 g/dL (3.5-5.0); Alkaline Phosphatase 52 U/L (39-117); Anion Gap 12 (12-20); Aspartate Amino Transferase 10 U/L (5-31); Bilirubin Total 0.5 mg/dL (0.0-1.0); Blood Urea Nitrogen 13 mg/dL (9-16); Calcium 7.9 mg/dL (8.4-10.2); Carbon Dioxide 24 mmol/L (22-29); Chloride 105 mmol/L (96-108); Creatinine Clr Calc Pharmacy 74.5; Estimated Glomerular Filt Rate > 60; Glucose Fasting 86 mg/dL (60-99); Potassium 3.9 mmol/L (3.3-5.1); Sodium 137 mmol/L (135-145); Total Protein 4.9 g/dL (6.5-8.0)
--- NOTE | 2022-10-23 07:41 | P.CDIM_ITS ---
PROVIDER RESPONSE TEXT: To clarify, the appropriate diagnosis supported by the clinical indicators: Acute hypoxic and hypercarbic respiratory failure QUERY TEXT: PHYSICIAN'S DOCUMENTATION REQUEST Date of Query: 10/22/2022 03:19 PM EDT Patient Name: Nicki Woodruff Admit Date: 09/29/2022 Dear Ricardo Aaron, A review of the medical record indicates additional documentation may be needed. Please review below and update the documentation accordingly. Clinical Indicators: Labs: Last VBG: pH - 7.49 pCO2 - 48 pO2 - 37 HCO3 - 37 Carbon dioxide level - 37 Other risk factors: -Acute hypoxic respiratory failure- following COVID-19 diagnosed 09/19 -Patient being treated for COPD exacerbation -Patient with interstitial lung disease -Patient treated for alkalosis -Patient requiring O2 during admission -Patient with frequent decreased O2 sat Please clarify which of the following accurately represents the patient's respiratory status: Acute hypoxic and hypercarbic respiratory failure Acute hypoxic respiratory failure Other Other (explain) Clinically unable to determine (explain) Thank you, Shagufta Vicente MS, RN, CCRN Use of terms such as suspected, likely, concern for, or probable (associated with a specific diagnosi s that is being evaluated, monitored, or treated as if it exists) are acceptable and can be coded in the inpatient se tting, when documented at the time of discharge. Please use your independent medical judgment in providing your response. THIS QUERY IS PART OF THE PERMANENT MEDICAL RECORD
[2022-10-23] MEDS: Fluticasone/Vilanterol 100/25 BLST.W.DEV 1 PUFF INHALE (07:48)
[2022-10-23 08:24] LABS: MANUAL DIFF FLAG NO
[2022-10-23 08:26] LABS: Basophils Percent Auto 0.6 % (0-2); Eosinophils Absolute Auto 0.2 X10*3/uL (0.0-0.4); Eosinophils Percent Auto 4.8 % (0-4); Hemoglobin 11.5 g/dl (12.0-16.0); Imm Gran Abs Auto 0.04 X10*3/uL (0.00-0.03); Imm Gran Pct Auto 0.8 % (0.0-0.4); Lymphocytes Absolute Auto 0.7 X10*3/uL (1.2-4.9); Lymphocytes Percent Auto 14.2 % (20-40); Mean Corpuscular HGB Conc 32.9 g/dl (31.0-35.0); Mean Corpuscular Hemoglobin 29.2 pg (27.0-33.0); Mean Corpuscular Volume 88.8 fL (80.0-98.0); Mean Platelet Volume 11.5 fL (9.4-12.3); Monocytes Absolute Auto 0.9 X10*3/uL (0.1-1.2); Monocytes Percent Auto 18.8 % (2-11); Neutrophils Percent Auto 60.8 % (45-73); Red Blood Count 3.94 X10*6/uL (4.20-5.50); Red Cell Distribution Width 14.5 % (11.0-16.0)
[2022-10-23 08:52] LABS: Platelet Count 124 X10*3/uL (160-400)
[2022-10-23] MEDS: busPIRone HCl 10 MG TABLET PO ×2 (09:06→20:18)
[2022-10-23] MEDS: Divalproex Sodium Sprinkles 125 MG CAP.DR.SPR 250 MG PO ×3 (09:06→20:16)
[2022-10-23] MEDS: risperiDONE 1 MG TABLET PO ×2 (09:07→14:56)
[2022-10-23] MEDS: Gabapentin 100 MG CAPSULE PO ×3 (09:07→20:16)
[2022-10-23] MEDS: Escitalopram Oxalate 10 MG TABLET PO (09:07)
[2022-10-23] MEDS: Enoxaparin Sodium 40 MG/0.4 ML SYRINGE SUBCUT (09:07)
--- NOTE | 2022-10-23 09:20 | MHC.CM.PN ---
Broad SNF search referrals have been updated and CM will continue to follow.
--- NOTE | 2022-10-23 13:39 | P.PNIM_ITS ---
Subjective Subjective Date of Service: 10/23/22 Interval History: No acute issues overnight. Review of Systems unable to obtain Physical Exam Vital Signs: Vital Signs: Last Vital Signs Temp 97.4 F 10/23/22 11:35 Pulse 63 10/23/22 11:35 Resp 18 10/23/22 11:35 BP 93/54 L 10/23/22 11:35 Pulse Ox 94 10/23/22 11:35 O2 Del Method 10/23/22 11:35 O2 Flow Rate 1 10/07/22 14:57 BMI result Body Mass Index 20.5 Const: Other: awake alert confused Resp: Other: clear to auscultation bilaterally no rales rhonchi or wheezes Cardio: Other: no S4; positive S1-S2; no S3 murmurs rubs or gallops GI: Other: soft nontender nondistended normoactive bowel sounds Extrem: Other: no edema bilaterally Objective Data Active Medications Acetaminophen (Acetaminophen 325 Mg Tablet) 650 mg PO Q6H PRN PRN Reason: Headache/Pain Mild Scale (1-3) Last Admin: 10/14/22 14:31 Dose: 650 mg Documented By: THAO Al Hydroxide/Mg Hydroxide (Magnesium Hydrox/Alum Hydrox 30 Ml Oral.Susp) 30 ml PO Q6H PRN PRN Reason: Heartburn/Nausea Albuterol Sulfate (Albuterol Sulfate 90 Mcg 8 Gm Inhaler) 1 puff INHALE RQ4H PRN PRN Reason: Dyspnea Atorvastatin Calcium (Atorvastatin Calcium 10 Mg Tablet) 10 mg PO BEDTIME [facility] Last Admin: 10/22/22 20:25 Dose: 10 mg Documented By: JEMMA Buspirone HCl (Buspirone Hcl 10 Mg Tablet) 10 mg PO BID [facility] Last Admin: 10/23/22 09:06 Dose: 10 mg Documented By: MATHEW Divalproex Sodium (Divalproex Sodium Sprinkles 125 Mg ) 250 mg PO TID [facility] Last Admin: 10/23/22 09:06 Dose: 250 mg Documented By: MATHEW Enoxaparin Sodium (Enoxaparin Sodium 40 Mg/0.4 Ml Syringe) 40 mg SUBCUT Q24H [facility] Last Admin: 10/23/22 09:07 Dose: 40 mg Documented By: MATHEW Escitalopram Oxalate (Escitalopram Oxalate 10 Mg Tablet) 10 mg PO DAILY [facility] Last Admin: 10/23/22 09:07 Dose: 10 mg Documented By: MATHEW Fluticasone/Vilanterol (Fluticasone/Vilanterol 100/25 Blst.W.Dev) 1 puff INHALE RDAILY [facility] Last Admin: 10/23/22 07:48 Dose: 1 puff Documented By: JOE Gabapentin (Gabapentin 100 Mg Capsule) 100 mg PO TID [facility] Last Admin: 10/23/22 09:07 Dose: 100 mg Documented By: MATHEW Lactulose (Lactulose 20 Gm/30 Ml Solution) 30 gm PO BID [facility] Last Admin: 10/23/22 09:07 Dose: Not Given Documented By: MATHEW Non-Admin Reason: Patient Refused Magnesium Hydroxide (Milk Of Magnesia 30 Ml Oral.Susp) 30 ml PO DAILY PRN PRN Reason: Constipation Omeprazole (Omeprazole 20 Mg Capsule.Dr) 20 mg PO DAILY@0630 [facility] Last Admin: 10/23/22 06:25 Dose: Not Given Documented By: JEMMA Non-Admin Reason: Patient Refused Risperidone (Risperidone 1 Mg Tablet) 1 mg PO BID@0900,1600 [facility] Last Admin: 10/23/22 09:07 Dose: 1 mg Documented By: MATHEW Sodium Chloride (0.9 % Sodium Chloride Flush 3 Ml Syringe) 3 ml IVFLUSH QSHIFT [facility] Last Admin: 10/23/22 09:06 Dose: Not Given Documented By: MATHEW Non-Admin Reason: No Access Tiotropium [place] (Tiotropium [place] 18 Mcg Cap.W.Dev) 1 puff INHALE RDAILY [facility] Last Admin: 10/23/22 07:48 Dose: 1 puff Documented By: JOE Labs 10/23/22 07:42 10/23/22 06:56 Labs: Laboratory Results - last 24 hr 10/23/22 10/23/22 10/23/22 06:56 06:56 07:42 MCV 88.8 MCH 29.2 MCHC 32.9 RDW 14.5 Plt Count 124 L D MPV 11.5 Immature Gran % (Auto) 0.8 H Neut % (Auto) 60.8 Lymph % (Auto) 14.2 L [place] % (Auto) 18.8 H Eos % (Auto) 4.8 H Baso % (Auto) 0.6 Lymph # (Auto) 0.7 L [place] # (Auto) 0.9 Eos # (Auto) 0.2 Baso # (Auto) 0.0 Abs Immat Gran (auto) 0.04 H Absolute Neuts (auto) 3.0 Absolute Nucleated RBC 0.000 Nucleated RBC % (auto) 0.0 Anion Gap 12 Estim Creat Clear Calc 74.5 Estimated GFR > 60 Fasting Glucose 86 Calcium 7.9 L Total Bilirubin 0.5 AST 10 ALT 7 Alkaline Phosphatase 52 Total Protein 4.9 L Albumin 3.3 L Valproic Acid 92.1 Assessment and Plan (1) Dementia: Status: Acute Plan 67 year-old female with history of unspecified dementia, depression, and COPD admitted for acute hypoxemic respiratory failure transferred to hospitalist se marquez from Psychiatry for further management of acute hypoxic respiratory failure; likely secondary to recent COVID-19 infection in backdrop of COPD/interstitial lung disease 1.Sinus bradycardia - rhythm strips reviewed; bradycardia and not significant - will add back gabapentin 1st and then trazodone if needed - follow clinically... No bradycardia 2.Acute hypoxic respiratory failure- following COVID-19 diagnosed 09/19 - weaned off O2 - 3.Hypernatremia - resolved -follow renals/divalent 4.COPD exacerbation acute.. - doxycycline d#5/5 (PO), steroids as above, continue triple controller inhaler 5.Unspecified dementia with behavioral disturbance and depression - continue valproate, escitalopram, buspirone...check VPA level am - add gabapentin t.i.d.; add trazodone if no response to gabapentin LMWH full code In my clinical judgment, the patient requires continued inpatient hospit alization for the following reasons: safe disposition Time Spent With Patient Time: Total time managing care of this patient today ____ minutes. Quality Stroke Does the patient have a stroke diagnosis?: No VTE Prior VTE?: No VTE Risk Level:: Medical - moderate - high VTE Device Contraindication: Treatment Not Indicated VTE Drug Contraindication: N/A - Med Ordered
[2022-10-23] MEDS: Atorvastatin Calcium 10 MG TABLET PO (20:18)
[2022-10-23] MEDS: 0.9 % Sodium Chloride Flush 3 ML SYRINGE IVFLUSH (20:22)
--- NOTE | 2022-10-24 | PC.NURSE ---
2100 Patient cooperative with medications in chocolate ice cream although does refuse lactulose, pushes it away and will not ingest.
[2022-10-24] MEDS: Omeprazole 20 MG CAPSULE.DR PO (05:56)
[2022-10-24 07:43] VITALS: BP 107/72; PULSE 69; RESP 16; TEMP 36.7; O2SAT 93
[2022-10-24] MEDS: Fluticasone/Vilanterol 100/25 BLST.W.DEV 1 PUFF INHALE (08:08)
[2022-10-24 08:10] VITALS: PULSE 69; RESP 16; O2SAT 94
[2022-10-24] MEDS: Enoxaparin Sodium 40 MG/0.4 ML SYRINGE SUBCUT (09:51)
[2022-10-24] MEDS: Gabapentin 100 MG CAPSULE PO ×3 (09:52→19:04)
[2022-10-24] MEDS: busPIRone HCl 10 MG TABLET PO ×2 (09:52→19:06)
[2022-10-24] MEDS: risperiDONE 1 MG TABLET PO ×2 (09:52→16:16)
[2022-10-24] MEDS: Escitalopram Oxalate 10 MG TABLET PO (09:52)
[2022-10-24] MEDS: Divalproex Sodium Sprinkles 125 MG CAP.DR.SPR 250 MG PO ×3 (09:52→19:04)
[2022-10-24] MEDS: Lactulose 20 GM/30 ML SOLUTION 30 GM PO ×2 (09:53→19:02)
[2022-10-24 12:00] VITALS: BP 112/68; PULSE 73; RESP 18; TEMP 36.8; O2SAT 97
--- NOTE | 2022-10-24 12:15 | HO.PM.IMPN ---
Subjective Subjective Date of Service: 10/24/22 Interval History: No acute events overnight. No behavioral issues Review of Systems unable to obtain Physical Exam Vital Signs: Vital Signs: Last Vital Signs Temp 98.1 F 10/24/22 07:43 Pulse 69 10/24/22 08:10 Resp 16 10/24/22 08:10 BP 107/72 10/24/22 07:43 Pulse Ox 93 10/24/22 07:43 O2 Del Method 10/23/22 23:11 O2 Flow Rate 1 10/07/22 14:57 BMI result Body Mass Index 20.5 Const: Other: awake alert confused Resp: Other: clear to auscultation bilaterally no rales rhonchi or wheezes Cardio: Other: no S4; positive S1-S2; no S3 murmurs rubs or gallops GI: Other: soft nontender nondistended normoactive bowel sounds Extrem: Other: no edema bilaterally Objective Data Active Medications Acetaminophen (Acetaminophen 325 Mg Tablet) 650 mg PO Q6H PRN PRN Reason: Headache/Pain Mild Scale (1-3) Last Admin: 10/14/22 14:31 Dose: 650 mg Documented By: THAO Al Hydroxide/Mg Hydroxide (Magnesium Hydrox/Alum Hydrox 30 Ml Oral.Susp) 30 ml PO Q6H PRN PRN Reason: Heartburn/Nausea Albuterol Sulfate (Albuterol Sulfate 90 Mcg 8 Gm Inhaler) 1 puff INHALE RQ4H PRN PRN Reason: Dyspnea Atorvastatin Calcium (Atorvastatin Calcium 10 Mg Tablet) 10 mg PO BEDTIME [facility] Last Admin: 10/23/22 20:18 Dose: 10 mg Documented By: FOREIGN Buspirone HCl (Buspirone Hcl 10 Mg Tablet) 10 mg PO BID [facility] Last Admin: 10/24/22 09:52 Dose: 10 mg Documented By: LIVIA Divalproex Sodium (Divalproex Sodium Sprinkles 125 Mg ) 250 mg PO TID [facility] Last Admin: 10/24/22 09:52 Dose: 250 mg Documented By: LIVIA Enoxaparin Sodium (Enoxaparin Sodium 40 Mg/0.4 Ml Syringe) 40 mg SUBCUT Q24H [facility] Last Admin: 10/24/22 09:51 Dose: 40 mg Documented By: LIVIA Escitalopram Oxalate (Escitalopram Oxalate 10 Mg Tablet) 10 mg PO DAILY [facility] Last Admin: 10/24/22 09:52 Dose: 10 mg Documented By: LIVIA Fluticasone/Vilanterol (Fluticasone/Vilanterol 100/25 Blst.W.Dev) 1 puff INHALE RDAILY [facility] Last Admin: 10/24/22 08:08 Dose: 1 puff Documented By: JOE Gabapentin (Gabapentin 100 Mg Capsule) 100 mg PO TID [facility] Last Admin: 10/24/22 09:52 Dose: 100 mg Documented By: LIVIA Lactulose (Lactulose 20 Gm/30 Ml Solution) 30 gm PO BID [facility] Last Admin: 10/24/22 09:53 Dose: 30 gm Documented By: LIVIA Magnesium Hydroxide (Milk Of Magnesia 30 Ml Oral.Susp) 30 ml PO DAILY PRN PRN Reason: Constipation Omeprazole (Omeprazole 20 Mg Capsule.Dr) 20 mg PO DAILY@0630 [facility] Last Admin: 10/24/22 05:56 Dose: 20 mg Documented By: FOREIGN Risperidone (Risperidone 1 Mg Tablet) 1 mg PO BID@0900,1600 [facility] Last Admin: 10/24/22 09:52 Dose: 1 mg Documented By: LIVIA Sodium Chloride (0.9 % Sodium Chloride Flush 3 Ml Syringe) 3 ml IVFLUSH QSHIFT [facility] Last Admin: 10/24/22 09:58 Dose: Not Given Documented By: LIVIA Non-Admin Reason: No Access Tiotropium [place] (Tiotropium [place] 18 Mcg Cap.W.Dev) 1 puff INHALE RDAILY [facility] Last Admin: 10/24/22 08:08 Dose: 1 puff Documented By: JOE Labs 10/23/22 07:42 10/23/22 06:56 Assessment and Plan (1) Dementia: Status: Acute Plan 67 year-old female with history of unspecified dementia, depression, and COPD admitted for acute hypoxemic respiratory failure transferred to hospitalist service from Psychiatry for further management of acute hypoxic respiratory failure; likely secondary to recent COVID-19 infection in backdrop of COPD/interstitial lung disease 1.Sinus bradycardia - rhythm strips reviewed; bradycardia and not significant - will add back gabapentin 1st and then trazodone if needed - follow clinically... No bradycardia 2.Acute hypoxic respiratory failure- following COVID-19 diagnosed 09/19 - weaned off O2 - 3.Hypernatremia - resolved -follow renals/divalent 4.COPD exacerbation acute.. - doxycycline d#5/ (PO), steroids as above, continue triple controller inhaler 5.Unspecified dementia with behavioral disturbance and depression - continue valproate, escitalopram, buspirone...check VPA level am - add gabapentin t.i.d.; add trazodone if no response to gabapentin LMWH full code In my clinical judgment, the patient requires continued inpatient hospitalization for the following reasons: safe disposition Time Spent With Patient Time: Total time managing care of this patient today ____ minutes. Quality Stroke Does the patient have a stroke diagnosis?: No VTE Prior VTE?: No VTE Risk Level:: Medical - moderate - high VTE Device Contraindication: Treatment Not Indicated VTE Drug Contraindication: N/A - Med Ordered
[2022-10-24 15:25] VITALS: BP 101/57; PULSE 80; RESP 18; TEMP 36.8; O2SAT 93
[2022-10-24 18:41] VITALS: BP 93/53; PULSE 80; RESP 17; TEMP 36.1; O2SAT 92
[2022-10-24] MEDS: Atorvastatin Calcium 10 MG TABLET PO (19:04)
[2022-10-24] MEDS: 0.9 % Sodium Chloride Flush 3 ML SYRINGE IVFLUSH (19:07)
[2022-10-25 04:00] VITALS: BP 118/67; PULSE 56; RESP 16; TEMP 36.6; O2SAT 93
[2022-10-25] MEDS: Omeprazole 20 MG CAPSULE.DR PO (05:11)
[2022-10-25] MEDS: Lactulose 20 GM/30 ML SOLUTION 30 GM PO (08:44)
[2022-10-25] MEDS: risperiDONE 1 MG TABLET PO ×2 (08:44→15:27)
[2022-10-25] MEDS: Divalproex Sodium Sprinkles 125 MG CAP.DR.SPR 250 MG PO ×3 (08:44→19:47)
[2022-10-25] MEDS: Gabapentin 100 MG CAPSULE PO ×3 (08:44→19:48)
[2022-10-25] MEDS: Enoxaparin Sodium 40 MG/0.4 ML SYRINGE SUBCUT (08:45)
[2022-10-25] MEDS: Escitalopram Oxalate 10 MG TABLET PO (08:45)
[2022-10-25] MEDS: busPIRone HCl 10 MG TABLET PO ×2 (08:45→19:47)
[2022-10-25 12:00] VITALS: BP 122/69; PULSE 60; RESP 18; TEMP 36.6; O2SAT 94
--- NOTE | 2022-10-25 13:24 | HO.PM.IMPN ---
Subjective Subjective Date of Service: 10/25/22 Interval History: No acute events overnight. No behavioral issues Review of Systems unable to obtain Physical Exam Vital Signs: Vital Signs: Last Vital Signs Temp 97.9 F 10/25/22 12:00 Pulse 60 10/25/22 12:00 Resp 18 10/25/22 12:00 BP 122/69 10/25/22 12:00 Pulse Ox 94 10/25/22 12:00 O2 Del Method 10/25/22 04:00 O2 Flow Rate 1 10/07/22 14:57 BMI result Body Mass Index 20.5 Const: Other: awake alert confused Resp: Other: clear to auscultation bilaterally no rales rhonchi or wheezes Cardio: Other: no S4; positive S1-S2; no S3 murmurs rubs or gallops GI: Other: soft nontender nondistended normoactive bowel sounds Extrem: Other: no edema bilaterally Objective Data Active Medications Acetaminophen (Acetaminophen 325 Mg Tablet) 650 mg PO Q6H PRN PRN Reason: Headache/Pain Mild Scale (1-3) Last Admin: 10/14/22 14:31 Dose: 650 mg Documented By: THAO Al Hydroxide/Mg Hydroxide (Magnesium Hydrox/Alum Hydrox 30 Ml Oral.Susp) 30 ml PO Q6H PRN PRN Reason: Heartburn/Nausea Albuterol Sulfate (Albuterol Sulfate 90 Mcg 8 Gm Inhaler) 1 puff INHALE RQ4H PRN PRN Reason: Dyspnea Atorvastatin Calcium (Atorvastatin Calcium 10 Mg Tablet) 10 mg PO BEDTIME [facility] Last Admin: 10/24/22 19:04 Dose: 10 mg Documented By: FOREIGN Buspirone HCl (Buspirone Hcl 10 Mg Tablet) 10 mg PO BID [facility] Last Admin: 10/25/22 08:45 Dose: 10 mg Documented By: HANNAH Divalproex Sodium (Divalproex Sodium Sprinkles 125 Mg ) 250 mg PO TID [facility] Last Admin: 10/25/22 08:44 Dose: 250 mg Documented By: HANNAH Enoxaparin Sodium (Enoxaparin Sodium 40 Mg/0.4 Ml Syringe) 40 mg SUBCUT Q24H [facility] Last Admin: 10/25/22 08:45 Dose: 40 mg Documented By: HANNAH Escitalopram Oxalate (Escitalopram Oxalate 10 Mg Tablet) 10 mg PO DAILY [facility] Last Admin: 10/25/22 08:45 Dose: 10 mg Documented By: HANNAH Fluticasone/Vilanterol (Fluticasone/Vilanterol 100/25 Blst.W.Dev) 1 puff INHALE RDAILY [facility] Last Admin: 10/25/22 08:07 Dose: Not Given Documented By: JOE Non-Admin Reason: Patient Asleep Gabapentin (Gabapentin 100 Mg Capsule) 100 mg PO TID [facility] Last Admin: 10/25/22 08:44 Dose: 100 mg Documented By: HANNAH Lactulose (Lactulose 20 Gm/30 Ml Solution) 30 gm PO BID [facility] Last Admin: 10/25/22 08:44 Dose: 30 gm Documented By: HANNAH Magnesium Hydroxide (Milk Of Magnesia 30 Ml Oral.Susp) 30 ml PO DAILY PRN PRN Reason: Constipation Omeprazole (Omeprazole 20 Mg Capsule.Dr) 20 mg PO DAILY@0630 [facility] Last Admin: 10/25/22 05:11 Dose: 20 mg Documented By: FOREIGN Risperidone (Risperidone 1 Mg Tablet) 1 mg PO BID@0900,1600 [facility] Last Admin: 10/25/22 08:44 Dose: 1 mg Documented By: HANNAH Sodium Chloride (0.9 % Sodium Chloride Flush 3 Ml Syringe) 3 ml IVFLUSH QSHIFT [facility] Last Admin: 10/25/22 08:51 Dose: Not Given Documented By: HANNAH Non-Admin Reason: No Access Tiotropium [place] (Tiotropium [place] 18 Mcg Cap.W.Dev) 1 puff INHALE RDAILY [facility] Last Admin: 10/25/22 08:07 Dose: Not Given Documented By: JOE Non-Admin Reason: Patient Asleep Labs 10/23/22 07:42 10/23/22 06:56 Assessment and Plan (1) Acute respiratory failure with hypoxia: Status: Acute Plan 67 year-old female with history of unspecified dementia, depression, and COPD admitted for acute hypoxemic respiratory failure transferred to hospitalist service from Psychiatry for further management of acute hypoxic respiratory failure; likely secondary to recent COVID-19 infection in backdrop of COPD/interstitial lung disease 1.Sinus bradycardia - rhythm strips reviewed; bradycardia and not significant - will add back gabapentin 1st and then trazodone if needed - follow clinically... No bradycardia 2.Acute hypoxic respiratory failure- following COVID-19 diagnosed 09/19 - weaned off O2 - 3.Hypernatremia - resolved -follow renals/divalent 4.COPD exacerbation acute.. - doxycycline d#5/ (PO), steroids as above, continue triple controller inhaler 5.Unspecified dementia with behavioral disturbance and depression - continue valproate, escitalopram, buspirone...check VPA level am - add gabapentin t.i.d.; add trazodone if no response to gabapentin LMWH full code In my clinical judgment, the patient requires continued inpatient hospitalization for the following reasons: safe disposition Time Spent With Patient Time: Total time managing care of this patient today ____ minutes. Quality Stroke Does the patient have a stroke diagnosis?: No VTE Prior VTE?: No VTE Risk Level:: Medical - moderate - high VTE Device Contraindication: Treatment Not Indicated VTE Drug Contraindication: N/A - Med Ordered
[2022-10-25 15:49] VITALS: BP 109/53; PULSE 70; RESP 17; TEMP 36.9; O2SAT 95
[2022-10-25] MEDS: Atorvastatin Calcium 10 MG TABLET PO (19:47)
[2022-10-25 23:54] VITALS: BP 102/56; PULSE 58; RESP 16; TEMP 36.5; O2SAT 96
[2022-10-26 04:00] VITALS: BP 101/51; PULSE 53; RESP 16; TEMP 36.4; O2SAT 93
[2022-10-26] MEDS: Omeprazole 20 MG CAPSULE.DR PO (05:31)
[2022-10-26 07:12] LABS: Alanine Aminotransferase < 6 U/L (0-31); Albumin Level 3.1 g/dL (3.5-5.0); Alkaline Phosphatase 50 U/L (39-117); Anion Gap 10 (12-20); Aspartate Amino Transferase 9 U/L (5-31); Bilirubin Total 0.4 mg/dL (0.0-1.0); Blood Urea Nitrogen 8 mg/dL (9-16); Calcium 8.3 mg/dL (8.4-10.2); Carbon Dioxide 32 mmol/L (22-29); Chloride 104 mmol/L (96-108); Creatinine Clr Calc Pharmacy 74.5; Estimated Glomerular Filt Rate > 60; Glucose Fasting 93 mg/dL (60-99); Potassium 3.8 mmol/L (3.3-5.1); Sodium 142 mmol/L (135-145); Total Protein 4.8 g/dL (6.5-8.0)
[2022-10-26 07:44] VITALS: BP 110/57; PULSE 54; RESP 16; TEMP 36.6; O2SAT 94
[2022-10-26] MEDS: Fluticasone/Vilanterol 100/25 BLST.W.DEV 1 PUFF INHALE (08:47)
[2022-10-26 09:13] LABS: Ammonia 18 umol/L (13-55)
[2022-10-26] MEDS: Divalproex Sodium Sprinkles 125 MG CAP.DR.SPR 250 MG PO ×3 (09:45→20:16)
[2022-10-26] MEDS: risperiDONE 1 MG TABLET PO ×3 (09:45→16:55)
[2022-10-26] MEDS: Escitalopram Oxalate 10 MG TABLET PO (09:45)
[2022-10-26] MEDS: busPIRone HCl 10 MG TABLET PO ×2 (09:45→20:16)
[2022-10-26] MEDS: Enoxaparin Sodium 40 MG/0.4 ML SYRINGE SUBCUT (09:45)
[2022-10-26] MEDS: Gabapentin 100 MG CAPSULE PO ×3 (09:45→20:16)
[2022-10-26 11:39] VITALS: BP 99/52; PULSE 71; RESP 16; TEMP 37.6; O2SAT 91
--- NOTE | 2022-10-26 11:41 | HO.PM.IMPN ---
Subjective Subjective Date of Service: 10/26/22 Interval History: Sitting comfortably offers no acute complaints tolerating diet no acute events overnight. Review of Systems Review of Systems: Yes all other systems are reviewed and are negative Physical Exam Vital Signs: Vital Signs: Last Vital Signs Temp 97.8 F 10/26/22 07:44 Pulse 54 10/26/22 07:44 Resp 16 10/26/22 07:44 BP 110/57 L 10/26/22 07:44 Pulse Ox 94 10/26/22 07:44 O2 Del Method 10/26/22 07:44 O2 Flow Rate 1 10/07/22 14:57 BMI result Body Mass Index 20.5 Const: Other: Gen: in no acute d istress HEENT: scl era anicteric, dominick st mucus membranes Neck: supple Lung s: clear bilateral ly Heart: RRR no m urmurs Abd: soft, non-tender, non-di stended Ext: no ed rob Skin: warm/wel l-perfused Neuro: alert, no focal fi ndings Psych: appr opriate affect Objective Data Active Medications Acetaminophen (Acetaminophen 325 Mg Tablet) 650 mg PO Q6H PRN PRN Reason: Headache/Pain Mild Scale (1-3) Last Admin: 10/14/22 14:31 Dose: 650 mg Documented By: THAO Al Hydroxide/Mg Hydroxide (Magnesium Hydrox/Alum Hydrox 30 Ml Oral.Susp) 30 ml PO Q6H PRN PRN Reason: Heartburn/Nausea Albuterol Sulfate (Albuterol Sulfate 90 Mcg 8 Gm Inhaler) 1 puff INHALE RQ4H PRN PRN Reason: Dyspnea Atorvastatin Calcium (Atorvastatin Calcium 10 Mg Tablet) 10 mg PO BEDTIME [facility] Last Admin: 10/25/22 19:47 Dose: 10 mg Documented By: JEMMA Buspirone HCl (Buspirone Hcl 10 Mg Tablet) 10 mg PO BID [facility] Last Admin: 10/26/22 09:45 Dose: 10 mg Documented By: MATHEW Divalproex Sodium (Divalproex Sodium Sprinkles 125 Mg ) 250 mg PO TID [facility] Last Admin: 10/26/22 09:45 Dose: 250 mg Documented By: MATHEW Enoxaparin Sodium (Enoxaparin Sodium 40 Mg/0.4 Ml Syringe) 40 mg SUBCUT Q24H [facility] Last Admin: 10/26/22 09:45 Dose: 40 mg Documented By: MATHEW Escitalopram Oxalate (Escitalopram Oxalate 10 Mg Tablet) 10 mg PO DAILY [facility] Last Admin: 10/26/22 09:45 Dose: 10 mg Documented By: MATHEW Fluticasone/Vilanterol (Fluticasone/Vilanterol 100/25 Blst.W.Dev) 1 puff INHALE RDAILY [facility] Last Admin: 10/26/22 08:47 Dose: 1 puff Documented By: NAEEM Gabapentin (Gabapentin 100 Mg Capsule) 100 mg PO TID [facility] Last Admin: 10/26/22 09:45 Dose: 100 mg Documented By: MATHEW Lactulose (Lactulose 20 Gm/30 Ml Solution) 30 gm PO BID [facility] Last Admin: 10/26/22 09:45 Dose: Not Given Documented By: MATHEW Non-Admin Reason: Patient Refused Magnesium Hydroxide (Milk Of Magnesia 30 Ml Oral.Susp) 30 ml PO DAILY PRN PRN Reason: Constipation Omeprazole (Omeprazole 20 Mg Capsule.Dr) 20 mg PO DAILY@0630 [facility] Last Admin: 10/26/22 05:31 Dose: 20 mg Documented By: JEMMA Risperidone (Risperidone 1 Mg Tablet) 1 mg PO BID@0900,1600 [facility] Last Admin: 10/26/22 09:45 Dose: 1 mg Documented By: MATHEW Sodium Chloride (0.9 % Sodium Chloride Flush 3 Ml Syringe) 3 ml IVFLUSH QSHIFT [facility] Last Admin: 10/26/22 09:45 Dose: Not Given Documented By: MATHEW Non-Admin Reason: No Access Tiotropium [place] (Tiotropium [place] 18 Mcg Cap.W.Dev) 1 puff INHALE RDAILY [facility] Last Admin: 10/26/22 08:47 Dose: 1 puff Documented By: NAEEM Labs 10/23/22 07:42 10/26/22 06:07 Labs: Laboratory Results - last 24 hr 10/26/22 10/26/22 06:07 08:47 Anion Gap 10 L Estim Creat Clear Calc 74.5 Estimated GFR > 60 Fasting Glucose 93 Calcium 8.3 L Total Bilirubin 0.4 AST 9 ALT < 6 Alkaline Phosphatase 50 Ammonia 18 Total Protein 4.8 L Albumin 3.1 L Assessment and Plan (1) Acute respiratory failure with hypoxia: Status: Acute Plan 67 year-old female with history of unspecified dementia, depression, and COPD admitted for acute hypoxemic respiratory failure transferred to hospitalist service from Psychiatry for further management of acute hypoxic respiratory failure; likely secondary to recent COVID-19 infection in backdrop of COPD/interstitial lung disease 1.Sinus bradycardia - heart rate in 50s stable, continue gabapentin and resume trazodone if needed - follow clinically 2.Acute hypoxic respiratory failure- following COVID-19 diagnosed 09/19 - weaned off O2 3.Hypernatremia - resolved - follow renals/divalent 4.COPD exacerbation acute.. Resolved - doxycycline d#5/5 (PO), continue triple controller inhaler 5.Unspecified dementia with behavioral disturbance and depression - continue valproate, escitalopram, buspirone,valproic level 92 - continue gabapentin t.i.d.;will add trazodone if no response to gabapentin LMWH full code In my clinical judgment, the patient requires continued inpatient hospitalization for the following reasons: safe disposition Time Spent With Patient Time: Total time managing care of this patient today ____ minutes. Quality Stroke Does the patient have a stroke diagnosis?: No VTE Prior VTE?: No VTE Risk Level:: Medical - moderate - high VTE Device Contraindication: Treatment Not Indicated VTE Drug Contraindication: N/A - Med Ordered
[2022-10-26 15:13] VITALS: BP 99/50; PULSE 75; RESP 20; TEMP 37.1; O2SAT 91
--- NOTE | 2022-10-26 16:03 | MHC.CM.PN ---
RANJIT SPOKE WITH JEANNE FROM [facility]. HE STATES [facility] IS TENTATIVELY OFFERING A BED TO PT. SW AND RADIATION ONCOLOGY MANAGER ARE WORKING ON SIGNING PAPERWORK WITH PT HCP. PER JEANNE, HE WILL GET BACK TO US TOMORROW WITH MORE DETAILS.
[2022-10-26 19:21] VITALS: BP 86/52; PULSE 73; RESP 16; TEMP 36.4; O2SAT 93
[2022-10-26] MEDS: Atorvastatin Calcium 10 MG TABLET PO (20:16)
[2022-10-26 20:32] VITALS: BP 108/72
[2022-10-27] VITALS: BP 95/55; PULSE 61; RESP 16; TEMP 36.6; O2SAT 96
[2022-10-27 03:44] VITALS: BP 93/44; PULSE 54; RESP 14; TEMP 36.9; O2SAT 92
[2022-10-27] MEDS: Omeprazole 20 MG CAPSULE.DR PO (06:08)
[2022-10-27] MEDS: Fluticasone/Vilanterol 100/25 BLST.W.DEV 1 PUFF INHALE (07:45)
[2022-10-27 07:52] VITALS: BP 96/54; PULSE 56; PULSE 82; RESP 16; TEMP 37.6; O2SAT 91; O2SAT 92
[2022-10-27] MEDS: busPIRone HCl 10 MG TABLET PO ×2 (08:39→20:09)
[2022-10-27] MEDS: Gabapentin 100 MG CAPSULE PO ×3 (08:40→20:09)
[2022-10-27] MEDS: Divalproex Sodium Sprinkles 125 MG CAP.DR.SPR 250 MG PO ×3 (08:40→20:09)
[2022-10-27] MEDS: Lactulose 20 GM/30 ML SOLUTION 30 GM PO ×2 (08:40→20:09)
[2022-10-27] MEDS: Escitalopram Oxalate 10 MG TABLET PO (08:40)
[2022-10-27] MEDS: risperiDONE 1 MG TABLET PO ×2 (08:40→15:18)
[2022-10-27] MEDS: Enoxaparin Sodium 40 MG/0.4 ML SYRINGE SUBCUT (08:41)
--- NOTE | 2022-10-27 08:43 | MHC.CM.PN ---
RANJIT RECEIVED A MESSAGE FROM [facility] REPORTING THEY WILL HAVE TO SNAIL MAIL ADMISSION PAPERWORK HCP MURTAZA DOES NOT HAVE ACCESS TO FAX OR EMAIL. CM CONTACTED MURTAZA AT [phone] , MURTAZA REPORTED SHE IN FACT DOES HAVE EMAIL HOWEVER HAS BEEN UNABLE TO OPEN THE PDF FILE, CLAYR[facility] WAS AGREEABLE TO FAICLITY EMAILIN OR FAXING TO CM AND THEN CM RESENDING HOWEVER MURTAZA CALLED CM BACK [phone] AND SHE REPORTED SHE WAS ABLE TO OPEN FILE AND WAS HAVING DIFFICULTY SIGNING ELECTRONICALLY AND WOULD CONTACT THE [facility] WHO EMAILED HER DOCUMENTS FOR ASSISTANCE. CM WILL FOLLOW UP W/MURTAZA AND SNF.
[2022-10-27 11:38] VITALS: BP 131/70; PULSE 70; RESP 16; TEMP 36.3; O2SAT 96
[2022-10-27 11:53] LABS: COVID-19 Test Negative (Negative); IDNOW Serial# 9DB6401D
--- NOTE | 2022-10-27 12:08 | PC.NURSE ---
report received from overnight RN, medical assistant secretary per OCT. Pt pleasantly confused this morning, watching television, offering no complaints. Pt tolerated covid swab well, results negative. Safety precautions in place, camera in room.
--- NOTE | 2022-10-27 13:11 | MHC.CM.PN ---
CM RECEIVED MESSAGE FROM [facility] THAT [facility] IS WORKING W/PT'S HCP TO GET ADMISSION PAPERWORK SIGNED AND SENT TO FACILITY, CM WILL FOLLOW FOR OKAY TO SEND PT AND D/C NEEDS.
--- NOTE | 2022-10-27 14:14 | P.PNIM_ITS ---
Subjective Subjective Date of Service: 10/27/22 Interval History: No new complaints Review of Systems Review of Systems: Yes all other systems are reviewed and are negative Physical Exam Vital Signs: Vital Signs: Last Vital Signs Temp 97.3 F 10/27/22 11:38 Pulse 70 10/27/22 11:38 Resp 16 10/27/22 11:38 BP 131/70 10/27/22 11:38 Pulse Ox 96 10/27/22 11:38 O2 Del Method 10/27/22 11:38 O2 Flow Rate 1 10/07/22 14:57 BMI result Body Mass Index 20.5 Const: Other: Gen: in no acute distress Neck: supple Lungs: clear bilaterally Heart: RRR no murmurs Abd: soft, non-tender, non-distended Ext: no edema Skin: warm/well-perfused Neuro: alert, no focal findings Psych: appropriate affect Objective Data Active Medications Acetaminophen (Acetaminophen 325 Mg Tablet) 650 mg PO Q6H PRN PRN Reason: Headache/Pain Mild Scale (1-3) Last Admin: 10/14/22 14:31 Dose: 650 mg Documented By: THAO Al Hydroxide/Mg Hydroxide (Magnesium Hydrox/Alum Hydrox 30 Ml Oral.Susp) 30 ml PO Q6H PRN PRN Reason: Heartburn/Nausea Albuterol Sulfate (Albuterol Sulfate 90 Mcg 8 Gm Inhaler) 1 puff INHALE RQ4H PRN PRN Reason: Dyspnea Atorvastatin Calcium (Atorvastatin Calcium 10 Mg Tablet) 10 mg PO BEDTIME [facility] Last Admin: 10/26/22 20:16 Dose: 10 mg Documented By: JEMMA Buspirone HCl (Buspirone Hcl 10 Mg Tablet) 10 mg PO BID [facility] Last Admin: 10/27/22 08:39 Dose: 10 mg Documented By: MATHEW Divalproex Sodium (Divalproex Sodium Sprinkboy 125 Mg ) 250 mg PO TID [facility] Last Admin: 10/27/22 08:40 Dose: 250 mg Documented By: MATHEW Enoxaparin Sodium (Enoxaparin Sodium 40 Mg/0.4 Ml Syringe) 40 mg SUBCUT Q24H [facility] Last Admin: 10/27/22 08:41 Dose: 40 mg Documented By: MATHEW Escitalopram Oxalate (Escitalopram Oxalate 10 Mg Tablet) 10 mg PO DAILY [facility] Last Admin: 10/27/22 08:40 Dose: 10 mg Documented By: MATHEW Fluticasone/Vilanterol (Fluticasone/Vilanterol 100/25 Blst.W.Dev) 1 puff INHALE RDAILY [facility] Last Admin: 10/27/22 07:45 Dose: 1 puff Documented By: KIMBERLY Gabapentin (Gabapentin 100 Mg Capsule) 100 mg PO TID [facility] Last Admin: 10/27/22 08:40 Dose: 100 mg Documented By: MATHEW Lactulose (Lactulose 20 Gm/30 Ml Solution) 30 gm PO BID [facility] Last Admin: 10/27/22 08:40 Dose: 30 gm Documented By: MATHEW Magnesium Hydroxide (Milk Of Magnesia 30 Ml Oral.Susp) 30 ml PO DAILY PRN PRN Reason: Constipation Omeprazole (Omeprazole 20 Mg Capsule.Dr) 20 mg PO DAILY@0630 [facility] Last Admin: 10/27/22 06:08 Dose: 20 mg Documented By: JEMMA Risperidone (Risperidone 1 Mg Tablet) 1 mg PO BID@0900,1600 [facility] Last Admin: 10/26/22 16:55 Dose: 1 mg Documented By: MATHEW Comments: verbal order to administer early d/t safety/behavior Sodium Chloride (0.9 % Sodium Chloride Flush 3 Ml Syringe) 3 ml IVFLUSH QSHIFT [facility] Last Admin: 10/27/22 08:41 Dose: Not Given Documented By: MATHEW Non-Admin Reason: No Access Tiotropium [place] (Tiotropium [place] 18 Mcg Cap.W.Dev) 1 puff INHALE RDAILY [facility] Last Admin: 10/27/22 07:45 Dose: 1 puff Documented By: KIMBERLY Labs 10/23/22 07:42 10/26/22 06:07 Labs: Laboratory Results - last 24 hr 10/27/22 11:30 COVID-19 ([facility]) Negative COVID-19 Clin Com See Note Assessment and Plan (1) Acute respiratory failure with hypoxia: Status: Acute Plan 67 year-old female with history of unspecified dementia, depression, and COPD admitted for acute hypoxemic respiratory failure transferred to hospitalist service from Psychiatry for further management of acute hypoxic respiratory failure; likely [facility] 1.Sinus bradycardia - heart rate in 50s stable, continue gabapentin and resume trazodone if needed - follow clinically 2.Acute hypoxic respiratory failure- following COVID-19 diagnosed 09/19 - weaned off O2, oxygenation remains stable 96% on room air. 3.Hypernatremia - resolved. - follow renals/divalent 4.COPD exacerbation acute.. Resolved - doxycycline d#5/5 (PO), continue triple controller inhaler 5.Unspecified dementia with behavioral disturbance and depression - continue valproate, escitalopram, buspirone,valproic level 92 - continue gabapentin t.i.d.;will add trazodone if no response to gabapentin LMWH full code In my clinical judgment, the patient requires continued inpatient hospitalization for the following reasons: safe disposition Time Spent With Patient Time: Total time managing care of this patient today ____ minutes. Quality Stroke Does the patient have a stroke diagnosis?: No VTE Prior VTE?: No VTE Risk Level:: Medical - moderate - high VTE Device Contraindication: Treatment Not Indicated VTE Drug Contraindication: N/A - Med Ordered
[2022-10-27 19:06] VITALS: BP 119/71; PULSE 84; RESP 20; TEMP 36.7; O2SAT 90
[2022-10-27] MEDS: Atorvastatin Calcium 10 MG TABLET PO (20:09)
[2022-10-28] VITALS: BP 107/44; PULSE 70; RESP 14; TEMP 36.7; O2SAT 93
[2022-10-28 03:23] VITALS: BP 116/59; PULSE 56; RESP 14; TEMP 36.8; O2SAT 92
[2022-10-28] MEDS: Omeprazole 20 MG CAPSULE.DR PO (05:39)
[2022-10-28 07:50] VITALS: BP 118/61; PULSE 61; RESP 16; TEMP 36.7
[2022-10-28] MEDS: Fluticasone/Vilanterol 100/25 BLST.W.DEV 1 PUFF INHALE (07:57)
[2022-10-28 08:03] VITALS: PULSE 56; RESP 14
[2022-10-28] MEDS: Enoxaparin Sodium 40 MG/0.4 ML SYRINGE SUBCUT (08:44)
[2022-10-28] MEDS: Escitalopram Oxalate 10 MG TABLET PO (08:44)
[2022-10-28] MEDS: risperiDONE 1 MG TABLET PO (08:44)
[2022-10-28] MEDS: Divalproex Sodium Sprinkles 125 MG CAP.DR.SPR 250 MG PO (08:44)
[2022-10-28] MEDS: Gabapentin 100 MG CAPSULE PO (08:44)
[2022-10-28] MEDS: busPIRone HCl 10 MG TABLET PO (08:44)
[2022-10-28] MEDS: Lactulose 20 GM/30 ML SOLUTION 30 GM PO (08:44)
--- NOTE | 2022-10-28 09:30 | MHC.CM.PN ---
IMM 10/28/22 DELIVERED TO HCP MURTAZA [phone] AND WILL BE SENT CERTIFIED MAIL, PT MEDICALLY CLEARED FOR D/C TO LTC AT [facility] IN [place], MURTAZA IS AGREEABLE TO AN 11AM D/C VIA [facility] FOR BLS TRANSPORT. NSG AND HOSPITALIST AWARE.
--- NOTE | 2022-10-28 10:09 | P.DS_ITS ---
DS: Providers Provider Date of Service: 10/28/22 Date of admission: 09/29/22 17:07 Primary care physician: Ryland Escobar DO Consults: 09/29/22 17:18 Consult for Sitter Routine Reason for consultation: aggitation, supplemental O2 noncompliance 10/01/22 15:31 Consult to Psychiatry Routine Consulting Provider: Psych Covering Reason for consultation: dementia with combattive behavoirs Has provider been notified: No 10/06/22 10:46 Consult to Care Team Stat Comment: Reason for consultation: Medically cleared for return to [facility] 10/07/22 08:18 Consult to Psychiatry Routine Consulting Provider: Psych Covering Reason for consultation: bradycardia suspect side effect of meds- d/c'ing risperidone, mematnein 10/11/22 11:21 Consult to Psychiatry Routine Consulting Provider: Psych Covering Reason for consultation: dementia, sundowning, aggression. Multiple meds dc d/t bradycardia DS: Diagnosis Discharge Diagnosis (1) Acute respiratory failure with hypoxia: Status: Acute DS: Summary Hospital Course Hospital Course: History of presenting illness: Date of Service: 09/29/22 Attending physician on admission: Salina Ambriz Chief Complaint: hypoxia 67-year-old female with history of unspecified dementia, depression, and COPD evaluated earlier today on [facility] where she had been admitted for aggressive behavior towards elderly mother who lives in a separate apartment from patient's room in assisted living facility patient was off medications for approximately 3 months and was trying to encourage mom to stop her medications without medications patient was declining with underlying history of dementia and mood disorder patient was receiving treatment at the psych facility when she became hypoxic and was diagnosed with COVID-19 on 09/19, Initially, symptoms have been mild, however several days ago developed hypoxia to 85% but improved to 95% so no intervention was performed. CXR at that time was negative for any acute cardiopulmonary abnormality.? Hypoxia was noted to persist on the unit and patient was refusing to wear oxygen and was noted to be intermittently combative and aggressive.? She has also been more encephalopathic from baseline, no longer getting out of bed and walking and refusing p.o..? Has only had minimal amounts of fluid over the last few days.? When examined today, patient found to be hypoxic between 86-89% on room air at rest. Discussed with attending psychiatrist and pt will be transferred/admitted to hospital service for further workup and management of acute hypoxic respiratory failure. Hospital course 67 year-old female with history of unspecified dementia, depression, and COPD admitted for acute hypoxemic respiratory failure trasnsferred to hospitalist service from Psychiatry for further management of acute hypoxic respiratory failure; likely secondary to recent COVID-19 infection in backdrop of COPD/interstitial lung disease # acute hypoxic respiratory failure- following COVID-19 diagnosed 09/19, patient treated with steroids oxygen with good response patient has been weaned off oxygen finger oximetry stable on room air, patient also noted to have acute COPD exacerbation received a course of doxycycline and now maintained on inhalers with good response. # unspecified dementia with behavioral disturbance and depression, continue memantine, buspirone, valproate, escitalopram, risperidone, and trazodone # bradycardia sinus stable heart rate no further intervention required, memantine discontinued. # electrolyte abnormalities hyponatremia and hypokalemia resolved Patient need 247 care. Time Spent with Patient Time attestation: Total time managing care of this patient today ____ minutes. Discharge coordination time: Greater than 30 minutes Quality: Safe Use of Opioids Does Pt have an Active Cancer Diagnosis on the Problem List?: No Quality: Stroke Does the patient have a stroke diagnosis?: No Physical Exam Vital Signs: Vital Signs: Last Vital Signs Temp 98.1 F 10/28/22 07:50 Pulse 56 10/28/22 08:03 Resp 14 10/28/22 08:03 BP 118/61 10/28/22 07:50 Pulse Ox 92 10/28/22 03:23 O2 Del Method 10/28/22 03:23 O2 Flow Rate 1 10/07/22 14:57 BMI result Body Mass Index 20.5 Const: Other: Gen: in no acute d istress Neck: supp le Lungs: clear bi laterally Heart: R RR no murmurs Abd: soft, non-tender, non-distended Ext : no edema Skin: w arm/well-perfused Neuro: alert, no f ocal findings Psyc h: appropriate aff ect DS: Data Data Completed and Pending Labs on day of discharge: Laboratory Results - last 24 hr 10/27/22 11:30 COVID-19 ([facility]) Negative COVID-19 Clin Com See Note Discharge Plan Discharge Anticipated Discharge Date/Time: 10/28/22 09:45 Patient Disposition: Xfer SNF Discharge Diagnosis: Acute hypoxic respiratory failure due to COVID-19 infection diagnosed 09/19 Hyponatremia Hypokalemia Acute COPD exacerbation Referrals: [facility] [Outside] - 1 Day ([facility]) Physician,Unknown J [Physician] - 1 Week Discharge Medications: New fluticasone furoate-vilanterol [Breo Ellipta] 100-25 mcg/dose Blister With Device 1 puff inhalation RDAILY Qty: 30 0RF Continued acetaminophen 325 mg Tablet 650 mg PO Q6H PRN (Reason: Headache/Pain Mild Scale (1-3)) Qty: 7 0RF trazodone 50 mg Tablet 50 mg PO BEDTIME MRX1 PRN (Reason: Insomnia) Qty: 7 0RF divalproex 125 mg Capsule, Delayed Rel Sprinkle 250 mg PO TID Qty: 7 0RF risperidone 1 mg Tablet 1 mg PO BID Qty: 14 0RF atorvastatin 10 mg tablet 1 tab PO DAILY omeprazole 20 mg capsule,delayed release(DR/EC) 1 cap PO DAILY gabapentin 100 mg capsule 1 cap PO TID escitalopram oxalate 10 mg tablet 1 tab PO DAILY buspirone 10 mg tablet 1 tab PO BID albuterol sulfate 90 mcg/actuation HFA aerosol inhaler 2 puff inhalation Q4H PRN (Reason: Shortness Of Breath) Discontinued memantine 5 mg Tablet 5 mg PO DAILY Qty: 7 0RF Discharge Orders: Discharge Order (Routine); Ordered 10/28/22 Ordered By: Maite Cisneros Diet: chopped/advanced Activity on Discharge: As tolerated Stand Alone Forms: Patient Portal Discharge page Care Plan Goals: Acute hypoxic respiratory failure due to COVID-19 resolved Continue current medication for dementia and mood disorder Health Concerns: Continue all home medications as before Plan of Treatment: Outpatient follow-up with primary care physician call for appointment. Assessment: as above
== END 2022-10-28 11:43 | disposition skilled nursing facility (03) | DRG 177 ==
PROVIDERS: Family Medicine; Hospitalist; Admitting Provider Physician Assistant; PCP Internal Medicine Hospice and Palliative Medicine; Visit Provider Hospitalist
DX: U07.1 COVID-19 (principal); G93.41 Metabolic encephalopathy; J96.01 Acute respiratory failure with hypoxia; J96.02 Acute respiratory failure with hypercapnia; J84.9 Interstitial pulmonary disease, unspecified; F03.93 Unspecified dementia, unspecified severity, with mood disturbance; F03.918 Unspecified dementia, unspecified severity, with other behavioral disturbance; F05 Delirium due to known physiological condition; E87.0 Hyperosmolality and hypernatremia; E87.3 Alkalosis; Z78.1 Physical restraint status; E87.6 Hypokalemia; R00.1 Bradycardia, unspecified; Z79.51 Long term (current) use of inhaled steroids; Z79.899 Other long term (current) drug therapy
CPT/HCPCS: 36415; 71045; 71250; 80048; 80053; 80164; 81003; 82140; 82803; 83605; 83735; 85025; 85027; 85379; 87635; 92950; 93005; 94640; 94664; 97116; 97162; J1643; J1650; J2060; J2920; J2930; S9485